=== PATIENT | female | born 1970 | race Two or more races ===

== ENCOUNTER → 2016-08-21 | Outpatient (CLI) | payer OTHER ==
[~2016-08-21] MED LIST: METHACHOLINE KIT (J7674) INH ONE
--- NOTE | 2016-08-21 10:02 | PFTRPT ---
BRONCOPROVOCATION TEST (METHACHOLINE CHALLENGE) DATE OF STUDY: 08/21/2016 ORDERED BY: Dr. Laura Tovar Study of excellent quality. Under protocol, methacholine was administered. Even after a maximal dose of 25 mg, or 188.875 CDU, no provocation dose every achieved. IMPRESSION: Negative methacholine challenge study. MTDD
--- NOTE | 2016-08-21 10:31 | METHCHAL ---
DATE OF STUDY: 08/21/2016 ORDERED BY: Dr. Laura Tovar Study of excellent quality. Under protocol, methacholine was administered. Even after a maximal dose of 25 mg, or 188.875 CDU, no provocation dose every achieved. IMPRESSION: Negative methacholine challenge study.
== END ==
LOC: M CARPUL 09:04
PROVIDERS: ATTEND Internal Medicine Pulmonary Disease
DX: R06.00 Dyspnea, unspecified (principal)

== ENCOUNTER → 2016-10-24 | Outpatient (CLI) | payer OTHER ==
[~2016-10-24] VITALS: Ht 165.1 cm; Wt 74.8 kg
[~2016-10-24] MED LIST changes: +ALLE180T33 PO; +BIOT2500 PO; +FLON1SPR; +IBUP-1114 PO; +LIDOCAINE 2% INJ 100 MG/5 ML SDV (FOR ANES.) As Ordered ONE; -METHACHOLINE KIT (J7674) INH ONE; +NS 1,000 ML IV ONE; +OMEP20CA3 PO; +PROA1AER INH; +PROPOFOL 200 MG/20 ML VIAL As Ordered ONE; +VITA1CAP7 PO; +VITA500T3 SL; +ZOFR20TA PO; +ZYRT10TA2 PO
--- NOTE | 2016-10-24 14:47 | ROOR ---
Patient Name: Cece Blanton Procedure Date: 10/24/2016 2:38 PM Date of : 1970 Age: 46 Room: [facility] Gender: Female Note Status: Finalized Procedure: Upper GI endoscopy Indications: Esophageal reflux, Chest pain (non cardiac) Providers: Davi RAMIREZ MD Referring MD: DELFIN LENZ MD Requesting Provider: Medicines: Monitored Anesthesia Care Complications: No immediate complications. Procedure: Pre-Anesthesia Assessment: - The heart rate, respiratory rate, oxygen saturations, blood pressure, adequacy of pulmonary ventilation, and response to care were monitored throughout the procedure. The Endoscope was introduced through the mouth, and advanced to the second part of duodenum. The upper GI endoscopy was accomplished without difficulty. The patient tolerated the procedure well. Findings: The esophagus was normal. The stomach was normal. The examined duodenum was normal. Impression: - Normal esophagus. - Normal stomach. - Normal examined duodenum. - No specimens collected. - Non-erosive esophageal reflux (NERD) disease present. Recommendation: - Use Prilosec (omeprazole) 20 mg PO BID indefinitely. Davi Ramirez MD Davi RAMIREZ MD 10/24/2016 2:47:13 PM This report has been signed electronically. Number of Addenda: 0 Note Initiated On: 10/24/2016 2:38 PM Estimated Blood Loss: Estimated blood loss: none.
[2016-10-24 15:19] VITALS: BP 119/58
== END | disposition home or self-care (01) ==
LOC: M OPP 12:37
PROVIDERS: ATTEND Internal Medicine Gastroenterology
DX: K21.9 Gastro-esophageal reflux disease without esophagitis (principal); I49.9 Cardiac arrhythmia, unspecified; L70.9 Acne, unspecified; Z91.040 Latex allergy status; Z79.899 Other long term (current) drug therapy

== ENCOUNTER 2017-01-01 05:04 | Emergency (ER) | payer OTHER ==
[~2017-01-01] VITALS: Ht 165.1 cm; Wt 72.7 kg
[~2017-01-01 05:04] MED LIST changes: -LIDOCAINE 2% INJ 100 MG/5 ML SDV (FOR ANES.) As Ordered ONE; -NS 1,000 ML IV ONE; -PROA1AER INH; +PROAAER10 INH; -PROPOFOL 200 MG/20 ML VIAL As Ordered ONE
[2017-01-01] MEDS ORDERED: ACETAMINOPHEN 325 MG TAB PO ONE (06:00)
[2017-01-01] MEDS ORDERED: IBUPROFEN 600 MG TAB PO ONE (06:00)
[2017-01-01 06:50] LABS: BASO % 0.5 % (0.0-1.0); EOS # 0.5 K/mm3 (0.0-0.50); EOS % 8.2 % (0.0-3.0); LARGE UNSTAINED CELL # 0.1 K/mm3 (0.0-0.4); LARGE UNSTAINED CELL % 1.8 % (0.0-4.0); LYMPH # 0.6 K/mm3 (1.5-4.5); MEAN CORPUSCULAR HEMOGLOBIN 30.2 pg (27.0-33.0); MEAN CORPUSCULAR HGB CONC 34.5 g/dl (32.0-36.5); MEAN CORPUSCULAR VOLUME 87.4 fl (80.0-96.0); MONO # 0.2 K/mm3 (0.0-0.8); MONO % 3.4 % (0.0-5.0); NEUTROPHILS # 4.5 K/mm3 (1.8-7.7); NEUTROPHILS % 78.1 % (36.0-66.0); PLATELET COUNT, AUTOMATED 233 k/mm3 (150-450); RED CELL DISTRIBUTION WIDTH 12.9 % (11.5-14.5); WHITE BLOOD COUNT 5.7 K/mm3 (4.0-10.0)
[2017-01-01] MEDS ORDERED: DOXY-278 PO (07:11)
[2017-01-01 07:12] LABS: ALBUMIN 3.7 GM/DL (3.2-5.2); ALBUMIN/GLOBULIN RATIO 0.93 (1.00-1.93); ALKALINE PHOSPHATASE 95 U/L (45-117); ALT/SGPT 31 U/L (12-78); ANION GAP 10 MEQ/L (8-16); AST/SGOT 33 U/L (15-37); BILIRUBIN,DIRECT 0.1 MG/DL (0.0-0.2); BILIRUBIN,TOTAL 0.5 MG/DL (0.2-1.0); BLOOD UREA NITROGEN 13 MG/DL (7-18); CALCIUM LEVEL 8.1 MG/DL (8.5-10.1); CARBON DIOXIDE LEVEL 23 MEQ/L (21-32); CHLORIDE LEVEL 106 MEQ/L (98-107); CREATININE FOR GFR 0.85 MG/DL (0.55-1.02); GLOMERULAR FILTRATION RATE > 60.0 (>58); GLUCOSE, FASTING 100 MG/DL (70-105); POTASSIUM SERUM 4.6 MEQ/L (3.5-5.1); SODIUM LEVEL 139 MEQ/L (136-145); TOTAL PROTEIN 7.7 GM/DL (6.4-8.2)
[2017-01-01] MEDS ORDERED: NS 1,000 ML IV ONE (07:45)
--- NOTE | 2017-01-01 08:40 | REP ---
PA and lateral chest: There are no comparisons. There is a 5 mm faintly visible nodular density peripherally in the left lung of uncertain significance in the absence of comparison studies to document stability. There are no infiltrates or effusions. Lung beltran otherwise clear. The cardiac size is normal. The zoë, mediastinum, and bony thorax are unremarkable. A cervical spine stabilization plate is partially visualized. Impression: No acute cardiopulmonary findings. Small nodular density in the left lung. Signed by Fred Jones MD 01/01/2017 08:31 A
[2017-01-01 10:56] VITALS: BP 122/68
--- NOTE | 2017-01-07 14:03 | ED PDOC ---
Post-Departure Follow-Up cuba zavaleta faxed formal report of cxr for fu Althea Tee MD Jan 07, 2017 14:03
== END 2017-01-01 10:59 | disposition home or self-care (01) ==
LOC: M ED 05:04
DX: R50.9 Fever, unspecified (principal)

== ENCOUNTER 2017-01-06 14:16 | Emergency (ER) | payer OTHER ==
[~2017-01-06] VITALS: Ht 165.1 cm; Wt 76.4 kg
[~2017-01-06 14:16] MED LIST changes: +DOXY-278 PO
[2017-01-06] MEDS ORDERED: KETOROLAC 30 MG/ML VIAL (J1885) IV ONE (15:30)
[2017-01-06] MEDS ORDERED: ONDANSETRON 4MG/2ML VIAL (J2405) IV ONE (15:30)
[2017-01-06] MEDS ORDERED: NS 1,000 ML IV ONE (15:30)
--- NOTE | 2017-01-06 15:58 | REP ---
CT study of the brain without contrast: History: Altered mental status. Findings: Digital paleology teacher radiographs of the chest demonstrate cervical spine fusion plating in the lower cervical spine. The bony calvarium is intact. Visualized paranasal sinuses are clear. No intraorbital abnormality is seen. On soft tissue window settings, there is a tiny dystrophic calcification in the inferior basal ganglia region on the left. There is no evidence of intracranial hemorrhage. No extra-axial fluid collection is seen. No mass, infarct, or midline shift is observed. Bond/white differentiation pattern is normal above and below the tentorium. Impression: No acute intracranial abnormality. Tiny dystrophic calcification left basal ganglia. Signed by Jalen Escamilla MD 01/06/2017 04:09 P
[2017-01-06 16:10] LABS: BASO # 0.1 K/mm3 (0.0-0.2); BASO % 1.3 % (0.0-1.0); EOS # 1.6 K/mm3 (0.0-0.50); EOS % 15.8 % (0.0-3.0); LARGE UNSTAINED CELL # 0.3 K/mm3 (0.0-0.4); LARGE UNSTAINED CELL % 2.8 % (0.0-4.0); LYMPH # 3.7 K/mm3 (1.5-4.5); LYMPH % 34.4 % (24.0-44.0); MEAN CORPUSCULAR HEMOGLOBIN 29.1 pg (27.0-33.0); MEAN CORPUSCULAR HGB CONC 32.4 g/dl (32.0-36.5); MEAN CORPUSCULAR VOLUME 89.9 fl (80.0-96.0); MONO # 0.5 K/mm3 (0.0-0.8); MONO % 5.1 % (0.0-5.0); NEUTROPHILS % 40.6 % (36.0-66.0); PLATELET COUNT, AUTOMATED 352 k/mm3 (150-450); RED CELL DISTRIBUTION WIDTH 12.9 % (11.5-14.5); WHITE BLOOD COUNT 9.9 K/mm3 (4.0-10.0)
--- NOTE | 2017-01-06 16:10 | REP ---
CT study of the cervical spine without contrast: History: Altered mental status. Technique: Helical scanning is acquired and overlapping 2 mm high resolution axial images were generated and reviewed at bone and soft tissue window settings. Coronal and sagittal multiplanar re-formations images are generated. CT findings: There is no evidence of cervical spine element fracture. No skull base fracture is seen. There is straightening of the normal cervical lordosis. The patient is status post surgical fusion at C5-6 and C6-7. C6-7 there is a fusion plate and intervertebral disc spacer noted in place. There are degenerative disc changes at C3-4 and C4-5. There is right-sided uncovertebral spurring and neural foraminal encroachment at the 6-7 level. Minimal left-sided uncovertebral spurring is seen at this level as well. The C7-T1 level shows no significant abnormality. Mild osteoarthritis is seen at C1-2. No extra vertebral abnormality is observed. Impression: Degenerative disc disease at C3-4 C4-5. Status post fusion C5-6, C6-7. Neural foraminal spurring bilaterally at C6-7. Otherwise negative CT study of the cervical spine without contrast. No fracture seen. Signed by Jalen Escamilla MD 01/06/2017 04:14 P
[2017-01-06 16:44] LABS: ALBUMIN 3.8 GM/DL (3.2-5.2); ALBUMIN/GLOBULIN RATIO 0.73 (1.00-1.93); ALKALINE PHOSPHATASE 171 U/L (45-117); ALT/SGPT 207 U/L (12-78); ANION GAP 10 MEQ/L (8-16); AST/SGOT 178 U/L (15-37); BILIRUBIN,DIRECT 0.1 MG/DL (0.0-0.2); BILIRUBIN,TOTAL 0.4 MG/DL (0.2-1.0); BLOOD UREA NITROGEN 15 MG/DL (7-18); CALCIUM LEVEL 8.8 MG/DL (8.5-10.1); CARBON DIOXIDE LEVEL 27 MEQ/L (21-32); CHLORIDE LEVEL 103 MEQ/L (98-107); CREATININE FOR GFR 0.81 MG/DL (0.55-1.02); GLOMERULAR FILTRATION RATE > 60.0 (>58); GLUCOSE, FASTING 86 MG/DL (70-105); POTASSIUM SERUM 3.6 MEQ/L (3.5-5.1); SODIUM LEVEL 140 MEQ/L (136-145)
[2017-01-06 17:27] LABS: CONTROL LINE MONO INT CTR LINE PRESENT
--- NOTE | 2017-01-06 18:13 | REP ---
RIGHT UPPER QUADRANT ULTRASOUND: Real-time sonographic evaluation of the right upper quadrant is performed. Patient has had a prior cholecystectomy. There is no intrahepatic or extrahepatic biliary dilatation, common bile duct measuring 4 mm in diameter. Liver and pancreas demonstrate homogenous echotexture with no gross mass, pancreas is not well seen due to overlying bowel gas. Right kidney demonstrates no hydronephrosis of nephrolithiasis with normal size at 9.6 cm in length. Lower pole is not well seen due to overlying bowel gas. No ascites is seen. IMPRESSION: Status-post cholecystectomy. No significant abnormality identified in the right upper quadrant. Signed by Fred Bond MD 01/07/2017 12:33 P
[2017-01-06 18:45] VITALS: BP 122/98
[2017-01-10 00:06] LABS: Lyme Disease IgG Ab 18 kDa Ban Absent (.); Lyme Disease IgG Ab 23 kDa Ban Absent (.); Lyme Disease IgG Ab 28 kDa Ban Absent (.); Lyme Disease IgG Ab 30 kDa Ban Absent (.); Lyme Disease IgG Ab 39 kDa Ban Present (.); Lyme Disease IgG Ab 41 kDa Ban Present (.); Lyme Disease IgG Ab 45 kDa Ban Absent (.); Lyme Disease IgG Ab 58 kDa Ban Absent (.); Lyme Disease IgG Ab 66 kDa Ban Absent (.); Lyme Disease IgG Ab 93 kDa Ban Absent (.); Lyme Disease IgG West Blot Int Negative (.); Lyme Disease IgG/IgM Antibodie <0.91 ISR (0.00-0.90); Lyme Disease IgM Ab 23 kDa Ban Absent (.); Lyme Disease IgM Ab 39 kDa Ban Absent (.); Lyme Disease IgM Ab 41 kDa Ban Absent (.); Lyme Disease IgM Ab Quantitati 1.28 index (0.00-0.79); Lyme Disease IgM West Blot Int Negative (.)
== END 2017-01-06 18:49 | disposition home or self-care (01) ==
LOC: M ED 14:16
DX: G44.201 Tension-type headache, unspecified, intractable (principal); R50.9 Fever, unspecified; R42 Dizziness and giddiness; R74.8 Abnormal levels of other serum enzymes; M50.30 Other cervical disc degeneration, unspecified cervical region; Z91.040 Latex allergy status; Z79.899 Other long term (current) drug therapy
CPT/HCPCS: 36415; 70450; 72125; 76705; 80048; 80076; 81001; 83605; 84443; 85025; 86308; 86617; 86705; 86709; 86803; 87340; 96361; 96374; 96375; 99284; J1885; J2405

== ENCOUNTER → 2017-01-08 | Outpatient (CLI) | payer OTHER ==
[~2017-01-08] MED LIST changes: +B-12500T2 PO; +CIPR-249 PO; +FLAG500T PO; +HYDR4CRE3 EXT; +IBUP1TAB7 PO; +METO10TA2 PO; +PANT40TA2 PO; +TRET0.0540 EXT; +[UNRECOGNIZED DRUG - CODE] PO
[2017-01-14 08:06] LABS: DENGUE FEVER IgG AB 6.88 ISR (<1.65); DENGUE FEVER IgM AB 1.12 ISR (<1.65)
== END ==
LOC: M LAB 10:29
PROVIDERS: ATTEND Nurse Practitioner Family
DX: R50.9 Fever, unspecified (principal); R51 Headache

== ENCOUNTER → 2017-01-10 | Outpatient (REF) | payer OTHER ==
[2017-01-10 12:00] LABS: BASO # 0.2 K/mm3 (0.0-0.2); BASO % 1.5 % (0.0-1.0); EOS # 2.6 K/mm3 (0.0-0.50); EOS % 26.1 % (0.0-3.0); LARGE UNSTAINED CELL # 0.2 K/mm3 (0.0-0.4); LYMPH # 2.8 K/mm3 (1.5-4.5); LYMPH % 26.2 % (24.0-44.0); MEAN CORPUSCULAR HEMOGLOBIN 29.6 pg (27.0-33.0); MEAN CORPUSCULAR HGB CONC 33.5 g/dl (32.0-36.5); MEAN CORPUSCULAR VOLUME 88.2 fl (80.0-96.0); MONO # 0.6 K/mm3 (0.0-0.8); MONO % 5.7 % (0.0-5.0); NEUTROPHILS # 3.8 K/mm3 (1.8-7.7); NEUTROPHILS % 38.4 % (36.0-66.0); PLATELET COUNT, AUTOMATED 418 k/mm3 (150-450); RED CELL DISTRIBUTION WIDTH 12.9 % (11.5-14.5); WHITE BLOOD COUNT 9.9 K/mm3 (4.0-10.0)
[2017-01-10 12:11] LABS: ALBUMIN 3.7 GM/DL (3.2-5.2); ALKALINE PHOSPHATASE 145 U/L (45-117); ALT/SGPT 101 U/L (12-78); ANION GAP 9 MEQ/L (8-16); AST/SGOT 34 U/L (15-37); BILIRUBIN,TOTAL 0.6 MG/DL (0.2-1.0); BLOOD UREA NITROGEN 14 MG/DL (7-18); CALCIUM LEVEL 8.6 MG/DL (8.5-10.1); CARBON DIOXIDE LEVEL 26 MEQ/L (21-32); CHLORIDE LEVEL 107 MEQ/L (98-107); CREATININE FOR GFR 0.74 MG/DL (0.55-1.02); GLOMERULAR FILTRATION RATE > 60.0 (>58); GLUCOSE, FASTING 83 MG/DL (70-105); POTASSIUM SERUM 4.5 MEQ/L (3.5-5.1); SODIUM LEVEL 142 MEQ/L (136-145); TOTAL PROTEIN 7.4 GM/DL (6.4-8.2)
[2017-01-10 12:31] LABS: ERYTHROCYTE SEDIMENTATION RATE 25 mm/hr (0-20)
[2017-01-18 00:06] LABS: ANTI PARVO VIRUS LEVEL IGG 1.3 index (0.0-0.8); ANTI PARVO VIRUS LEVEL IgM 0.2 index (0.0-0.8); BABESIOSIS LEVEL IGG <1:10 (Neg:<1:10); BABESIOSIS LEVEL IGM <1:10 (Neg:<1:10)
== END ==
LOC: M SFHCPLAZ 08:54
PROVIDERS: ATTEND Internal Medicine Infectious Disease
DX: R50.9 Fever, unspecified (principal)

== ENCOUNTER → 2017-01-23 | Outpatient (CLI) | payer OTHER ==
[2017-01-23 07:43] LABS: BASO # 0.1 K/mm3 (0.0-0.2); EOS # 2.8 K/mm3 (0.0-0.50); EOS % 33.4 % (0.0-3.0); LARGE UNSTAINED CELL # 0.3 K/mm3 (0.0-0.4); LARGE UNSTAINED CELL % 3.4 % (0.0-4.0); LYMPH # 2.6 K/mm3 (1.5-4.5); LYMPH % 30.3 % (24.0-44.0); MEAN CORPUSCULAR HEMOGLOBIN 29.8 pg (27.0-33.0); MEAN CORPUSCULAR HGB CONC 33.9 g/dl (32.0-36.5); MEAN CORPUSCULAR VOLUME 87.8 fl (80.0-96.0); MONO # 0.4 K/mm3 (0.0-0.8); MONO % 4.3 % (0.0-5.0); NEUTROPHILS # 2.3 K/mm3 (1.8-7.7); NEUTROPHILS % 27.6 % (36.0-66.0); PLATELET COUNT, AUTOMATED 349 k/mm3 (150-450); WHITE BLOOD COUNT 8.5 K/mm3 (4.0-10.0)
[2017-01-23 08:10] LABS: ALBUMIN 3.6 GM/DL (3.2-5.2); ALBUMIN/GLOBULIN RATIO 0.8 (1.00-1.93); BILIRUBIN,DIRECT 0.2 MG/DL (0.0-0.2); BILIRUBIN,TOTAL 0.6 MG/DL (0.2-1.0); TOTAL PROTEIN 8.1 GM/DL (6.4-8.2)
== END ==
LOC: M LAB 06:49
PROVIDERS: ATTEND Internal Medicine Infectious Disease
DX: R79.89 Other specified abnormal findings of blood chemistry (principal); D72.1 Eosinophilia; R50.9 Fever, unspecified

== ENCOUNTER → 2017-01-29 | Outpatient (CLI) | payer OTHER ==
[2017-01-29 18:17] LABS: MEAN CORPUSCULAR HEMOGLOBIN 29.9 pg (27.0-33.0); MEAN CORPUSCULAR HGB CONC 33.7 g/dl (32.0-36.5); MEAN CORPUSCULAR VOLUME 88.6 fl (80.0-96.0); WHITE BLOOD COUNT 7.8 K/mm3 (4.0-10.0)
[2017-01-29 20:11] LABS: BASOPHILS 4 % (0-4); EOSINOPHILS 11 % (0-5)
[2017-01-29 20:27] LABS: ALBUMIN 3.7 GM/DL (3.2-5.2); ALBUMIN/GLOBULIN RATIO 0.86 (1.00-1.93); ALKALINE PHOSPHATASE 113 U/L (45-117); ALT/SGPT 28 U/L (12-78); ANION GAP 12 MEQ/L (8-16); AST/SGOT 15 U/L (15-37); BILIRUBIN,TOTAL 0.5 MG/DL (0.2-1.0); BLOOD UREA NITROGEN 16 MG/DL (7-18); CARBON DIOXIDE LEVEL 23 MEQ/L (21-32); CHLORIDE LEVEL 106 MEQ/L (98-107); CREATININE FOR GFR 0.66 MG/DL (0.55-1.02); GLOMERULAR FILTRATION RATE > 60.0 (>58); GLUCOSE, FASTING 88 MG/DL (70-105); POTASSIUM SERUM 4.3 MEQ/L (3.5-5.1); SODIUM LEVEL 141 MEQ/L (136-145)
[2017-02-04 14:14] LABS: STRONGYLOIDES SERUM ANTIBODIES Negative (Negative)
[2017-02-05 14:23] LABS: TRICHINELLA ANTIBODY NEGATIVE
== END ==
LOC: M LAB 16:42
PROVIDERS: ATTEND Internal Medicine Infectious Disease
DX: D72.1 Eosinophilia (principal); R79.89 Other specified abnormal findings of blood chemistry

== ENCOUNTER → 2017-02-10 | Outpatient (REF) | payer OTHER ==
[2017-02-10 12:58] LABS: BASO % 0.6 % (0.0-1.0); EOS # 1.3 K/mm3 (0.0-0.50); EOS % 18.8 % (0.0-3.0); LARGE UNSTAINED CELL # 0.1 K/mm3 (0.0-0.4); LARGE UNSTAINED CELL % 1.6 % (0.0-4.0); LYMPH # 2.2 K/mm3 (1.5-4.5); LYMPH % 30.9 % (24.0-44.0); MEAN CORPUSCULAR HEMOGLOBIN 28.8 pg (27.0-33.0); MEAN CORPUSCULAR HGB CONC 32.2 g/dl (32.0-36.5); MEAN CORPUSCULAR VOLUME 89.4 fl (80.0-96.0); MONO # 0.3 K/mm3 (0.0-0.8); MONO % 4.3 % (0.0-5.0); NEUTROPHILS % 43.9 % (36.0-66.0); PLATELET COUNT, AUTOMATED 358 k/mm3 (150-450); RED CELL DISTRIBUTION WIDTH 12.9 % (11.5-14.5); WHITE BLOOD COUNT 6.8 K/mm3 (4.0-10.0)
[2017-02-10 13:10] LABS: BLOOD UREA NITROGEN 16 MG/DL (7-18); CARBON DIOXIDE LEVEL 28 MEQ/L (21-32); CHLORIDE LEVEL 107 MEQ/L (98-107); CREATININE FOR GFR 0.71 MG/DL (0.55-1.02); GLOMERULAR FILTRATION RATE > 60.0 (>58); GLUCOSE, FASTING 75 MG/DL (70-105); POTASSIUM SERUM 4.2 MEQ/L (3.5-5.1); SODIUM LEVEL 143 MEQ/L (136-145)
[2017-02-10 13:11] LABS: ALBUMIN 3.7 GM/DL (3.2-5.2); ALKALINE PHOSPHATASE 119 U/L (45-117); ALT/SGPT 24 U/L (12-78); ANION GAP 8 MEQ/L (8-16); AST/SGOT 17 U/L (15-37); BILIRUBIN,TOTAL 0.8 MG/DL (0.2-1.0); TOTAL PROTEIN 7.8 GM/DL (6.4-8.2)
[2017-02-10 13:26] LABS: ERYTHROCYTE SEDIMENTATION RATE 38 mm/hr (0-20)
[2017-02-12 00:06] LABS: Lyme Disease IgG/IgM Antibodie <0.91 ISR (0.00-0.90); Lyme Disease IgM Ab Quantitati <0.80 index (0.00-0.79)
== END ==
LOC: M SFHCPLAZ 08:47
PROVIDERS: ATTEND Internal Medicine Infectious Disease
DX: D72.1 Eosinophilia (principal); R51 Headache

== ENCOUNTER 2017-02-13 16:36 | Inpatient (IN) | payer OTHER ==
[~2017-02-13] VITALS: Ht 165.1 cm; Wt 76.4 kg
[~2017-02-13 16:36] MED LIST changes: -B-12500T2 PO; -CIPR-249 PO; -FLAG500T PO; -HYDR4CRE3 EXT; -IBUP1TAB7 PO; -METO10TA2 PO; -PANT40TA2 PO; -TRET0.0540 EXT; -[UNRECOGNIZED DRUG - CODE] PO
[2017-02-13] MEDS ORDERED: HYDROmorphone HCL 1 MG/ML SYRINGE (J1170) IV ONE (18:15)
[2017-02-13] MEDS ORDERED: ONDANSETRON 4MG/2ML VIAL (J2405) IV ONE ×2 (18:15→22:15)
--- NOTE | 2017-02-13 18:29 | ED PDOC ---
Post-Departure Follow-Up SPOKE WITH DR. PETERS PRIOR TO SEEING THIS PT. PT HAS BEEN SEEING DR. PETERS SINCE SHE RETURNED FROM [facility] WITH MULTIPLE SYMPTOMS. STATES SHE BEGAN WITH PERSISTENT HEADACHES, WHICH RESOLVED. THEN BEGAN HAVING BONE/JOINT PAIN WHICH HAS ALSO RESOLVED. DR. PETERS ADVISED SHE PERFORMED OVA/PARASITE TESTING THAT WAS NEGATIVE, ALONG WITH MULTIPLE TESTS IN BLOODWORK. SHE HAD POSITIVE SEROLOGY TESTING FOR PRIOR DENGUE FEVER, BUT NOT FOR ACUTE INFECTION. PT PRESENTS TO THE ER TODAY STATING SHE BEGAN WITH DIFFUSE ABDOMINAL PAIN TODAY THAT HAS BEEN WORSENING THROUGHOUT THE DAY. NO HX OF KIDNEY STONES. STATES ONLY C-SECTIONS AND CHOLECYSTECTOMY FOR PRIOR ABD SURGERIES. DR. PETERS SAW THIS PT FOR AN ACUTE VISIT 3 DAYS AGO IN HER OFFICE FOR THE RETURN OF PT'S HEADACHE. SHE ORDERED AN MRI THAT SHOWED SOME ABNORMALITIES. THE PT IS UNAWARE OF THIS AND DR. PETERS REQUESTED TO BE THE ONE TO TELL HER ABOUT HER MRI RESULTS. FELICITY MORENO PA-C Feb 13, 2017 18:29
[2017-02-13] MEDS ORDERED: GASTROGRAFIN SOLUTION 30ML PO ONE (18:30)
[2017-02-13 18:51] LABS: ALBUMIN 3.8 GM/DL (3.2-5.2); ALKALINE PHOSPHATASE 110 U/L (45-117); ALT/SGPT 25 U/L (12-78); AMYLASE 70 U/L (25-115); ANION GAP 6 MEQ/L (8-16); AST/SGOT 20 U/L (15-37); BILIRUBIN,DIRECT 0.2 MG/DL (0.0-0.2); BILIRUBIN,TOTAL 0.8 MG/DL (0.2-1.0); BLOOD UREA NITROGEN 16 MG/DL (7-18); CARBON DIOXIDE LEVEL 27 MEQ/L (21-32); CHLORIDE LEVEL 103 MEQ/L (98-107); CREATININE FOR GFR 0.81 MG/DL (0.55-1.02); GLOMERULAR FILTRATION RATE > 60.0 (>58); GLUCOSE, FASTING 110 MG/DL (70-105); POTASSIUM SERUM 4.1 MEQ/L (3.5-5.1); SODIUM LEVEL 136 MEQ/L (136-145)
[2017-02-13] MEDS ORDERED: GASTROGRAFIN SOLUTION 30ML (Q9963) PO ONE (19:00)
[2017-02-13] MEDS ORDERED: KETOROLAC 30 MG/ML VIAL (J1885) IV ONE (19:00)
[2017-02-13] MEDS ORDERED: MORPHINE 10 MG/ML 1ML VIAL IV ONE (19:00)
[2017-02-13 19:08] LABS: ADD MORPHOLOGY? NO; BASO % 0.1 % (0.0-1.0); EOS # 0.1 K/mm3 (0.0-0.50); EOS % 0.6 % (0.0-3.0); LARGE UNSTAINED CELL # 0.1 K/mm3 (0.0-0.4); LARGE UNSTAINED CELL % 0.7 % (0.0-4.0); LYMPH % 8.1 % (24.0-44.0); MEAN CORPUSCULAR HEMOGLOBIN 29.5 pg (27.0-33.0); MONO # 0.3 K/mm3 (0.0-0.8); MONO % 1.9 % (0.0-5.0); NEUTROPHILS # 11.3 K/mm3 (1.8-7.7); NEUTROPHILS % 88.6 % (36.0-66.0); PLATELET COUNT, AUTOMATED 364 k/mm3 (150-450); RED CELL DISTRIBUTION WIDTH 12.5 % (11.5-14.5)
[2017-02-13] MEDS ORDERED: METOCLOPRAMIDE INJ 10MG/2ML VIAL (J2765) IV ONE (19:15)
[2017-02-13 19:31] LABS: HCG, SERUM QUANTITATIVE < 1.0 MIU/ML
[2017-02-13] MEDS ORDERED: ISOVUE-370 76% 100ML VIAL (Q9967) As Ordered ONE (19:44)
[2017-02-13] MEDS ORDERED: NS 1,000 ML IV ONE (19:45)
--- NOTE | 2017-02-13 20:30 | REPUSA ---
CT of the abdomen and pelvis with contrast Clinical statement: Pain. Technique: Multiple axial CT images were obtained from the base of the lungs through the floor of the pelvis utilizing 5 mm axial slices after administration of oral and nonionic intravenous contrast. C oronal and sagittal reconstructions were also obtained. Comparison: 11/09/2015. Findings: Chest: The visualized lung bases are clear. There is a stable benign calcified granuloma in the left lung. Abdomen: The liver, spleen, pancreas, kidneys, and adrenal glands are unremarkable. The aorta is with in normal limits. There is no evidence of abdominal lymphadenopathy or ascites. Pelvis: There is diffuse severe bowel wall thickening involving the majority of the jejunum and ileum . Inflammatory stranding is seen around this region. There is a moderate amount of surrounding ascite s. There is no focal evidence of bowel obstruction. The colon appears unremarkable. The urinary bladd er is within normal limits. There is a simple right ovarian cyst measuring 2.0 x 2.0 cm. There is no evidence of pelvic lymphadenopathy. Bones: There are no suspicious osseous abnormalities seen. Moderate degenerative disc disease with sm all disc osteophyte complex is seen at L5/S1. Impression: 1. Diffuse small bowel wall thickening with surrounding inflammation and moderate amount of ascites i nvolving the majority of the jejunum and ileum. No focal site of obstruction is seen. Differential di agnosis includes enterocolitis versus and inflammatory bowel disease such as Crohn's disease. Follow- up is suggested as clinically indicated. 2. Moderate amount of pelvic ascites. 3. Simple right ovarian cyst. 4. Stable moderate degenerative disc disease at L5/S1.
[2017-02-13] MEDS ORDERED: methylPREDNISolone INJ 125 MG/2 ML VIAL (J2930) IV ONE (20:45)
[2017-02-13] MEDS ORDERED: CIPROFLOXACIN 400 MG in APPROPRIATE DILUENT 1 EA IV ONE (20:45)
[2017-02-13] MEDS ORDERED: MORPHINE 4 MG/ML 1ML SYRINGE IV ONE (22:00)
--- NOTE | 2017-02-13 22:08 | ER ---
DATE: 02/13/2017 Cece is a 46-year-old female well known to me from outpatient clinic visits. She has a return from [place] in November after she had spent a couple weeks there. She was seen in our emergency room on January 01 with fever and again on January 06 where she has severe headaches. The patient has fevers of 103 then developed severe bony pains, eosinophilia and abnormal liver function test. She was seen in consultation by myself on January 10, at that point her fever had resolved, but she was still having exhaustion, fatigue and bony pain with low back pain. The patient was noted to have significant eosinophilia with 30% eosinophil, stool and ova parasites were done were negative. Toxoplasma, Toxocara and Strongyloides serology were negative. 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 The patient asked for an acute visit and was seen in my office on February 10 complaining of severe neck pain and headache. 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 MRI showed multiple nonspecific T2 hyperintensity in the subcortical and periventricular white matter. I reviewed this MRI with Dr. Escamilla who felt this could be suggestive of findings ischemic changes, but her age is not the appropriate for age-related ischemic changes versus MS. Nothing to suggest infectious process, encephalitis or to explain her eosinophilia. She called today stating that she was having severe excruciating abdominal pain that started while walking on the trail. The pain has intensified drastically. She called my office at least a couple times, I asked her to come to the emergency room, she was nervous about the ER, she does not like [facility], but I promised I would see her there. The patient was seen. She is very uncomfortable. She cannot lay down to be examined. She has some nausea, but no vomiting, no diarrhea. She took two laxative this morning thinking it was gas that she had was causing the pain because she had pizza last night. Her bowel movement today were nonbloody, non mucoid, normal. She had two bowel movements. She has no fever or chills. No joint pain. Her headache is somewhat improved. PHYSICAL EXAMINATION: Temperature is 98.2, pulse 106, respirations 16, blood pressure 135/69, O2 sat 99% on room air. HEART: Normal S1-S2 with no murmurs, tachycardiac. LUNGS: Clear. No wheezes or rhonchi. ABDOMEN: Diffusely tender without rebound that is very uncomfortable. EXTREMITIES: No edema. No rashes. LABORATORY DATA: White count of 13, hemoglobin 13.1, hematocrit 38.6, platelets 364. 88% neutrophils, 8% lymphocytes, 2% monocytes. Sodium 136, potassium 4.1, chloride 103, bicarb 27, BUN 16, creatinine 0.8, glucose 110, lactic acid 1.55, calcium 9, bilirubin 0.8, AST 20, ALT 25, alkaline phosphatase 110, CRP 1.5, albumin 3.8, amylase 70, lipase 221 and HCG negative. Lyme serology done on 02/10 was negative, Strongyloides IgG antibody are negative. toxocara and toxoplasma antibody are negative. IMPRESSION: Severe abdominal pain in patient who has had a month of the illness which has been mostly suggestive of viral infection versus Dengue fever. The patient presents with an acute abdominal pathology. She had eosinophilia up until 02/10 , she had 18% eosinophils today in the ER possibly due to the leukocytosis and neutrophilia. There is no evidence of eosinophils on current smear. Currently the abdominal findings may not be related to previous illness. She is status post cholecystectomy and therefore that could not be the reason, she could have cholecystitis or bowel obstruction. PLAN Obtain stat CT abdomen and pelvis. The patient needs some morphine to help her get comfortable and possibly some anxiolytic. Consult surgery as appropriate. If the patient has a bowel movement, please obtain stool for O P GI panel. No further workup of eosinophilia will be done as an outpatient and MRI findings are suggestive of nonspecific T2 hyperintensity in the subcortical and periventricular white matter. I did discuss some of those findings with the patient and that this will be further worked up by neurology as an outpatient. Not sure if the patient will need admission at this point, but I have discussed the case with KATELYNN Tejeda regarding further workup. NAHUN
[2017-02-14] MEDS ORDERED: IBUP1TAB7 PO
[2017-02-14] MEDS ORDERED: TRET0.0540 EXT
[2017-02-14] MEDS ORDERED: HYDR4CRE3 EXT
[2017-02-14] MEDS ORDERED: B-12500T2 PO
[2017-02-14] MEDS ORDERED: [UNRECOGNIZED DRUG - CODE] PO (00:01)
--- NOTE | 2017-02-14 02:19 | HPE ---
DATE OF ADMISSION: 02/14/2017 46-year-old white female presents to the emergency room with diffuse abdominal pain. The pain began suddenly while she was on a walking trail earlier today. She has been nauseous, but no vomiting. She denies any diarrhea symptoms. She has an interesting recent past medical history for an unknown illness. She has been evaluated for possible dengue fever. She has been seeing Dr. Cummings. Her serologies were positive for IgG, but absent for IgM. This presentation was associated with a headache which was present most recently last week, but has now resolved itself. She also has had recent eosinophilia, but ironically eosinophils are not elevated this evening. She has had elevated liver function tests (LFTs), but they have returned to normal. She has been evaluated also with stool for ova and parasites (O and P) which has been negative. She has a mildly elevated white count in the emergency room this evening. White count is 13,000 with 88% neutrophils and negligible eosinophils. Eosinophils within the last month have been as high as 33% at one time at the end of December. Sedimentation rate has been moderately elevated in the mid 30s. CRP is mildly elevated. Her CT shows findings suggestive of enterocolitis with thickening involving the jejunum and ileum and ascites and associated moderate amount of pelvic ascites. Regarding her pain, she has had morphine and Dilaudid in the emergency room (ER). She seems to be comfortable at present, but still rates her pain fairly high on a 1-10 scale. Pain seems to be worse if supine. It also seems to be worse with anything which increases diaphragmatic pressure such as coughing, etc. She denies any fever. There is no associated rash. There are no joint complaints. ALLERGIES: LATEX. MEDICATIONS: She takes Zyrtec, Flonase, Yolanda, B12. She also takes Prilosec for gastroesophageal reflux disease (GERD). PAST MEDICAL HISTORY: She has had two neck/spine surgeries. She has had the recent illness as I discussed, which incidentally began after a vacation to the [place]. Cholecystectomy, ganglion cyst, breast augmentation, dental implant, vein surgery bilaterally with ablation, chronic sinuses and GERD. FAMILY HISTORY: Mother has hypertension. Brother has hypertension. She says her sister has hypotension. SOCIAL HISTORY: No alcohol or tobacco, travels a lot, last travel to the [place] in November. Became ill after that vacation with the headache, eosinophilia, elevated liver tests, etc., as discussed above. REVIEW OF SYSTEMS: General: She has had some chills today, but no fever. HEENT: She has had recent headache associated with her other illness. That has not been present in the last several days. Last week that was present for most of the week. She has had cranial imaging. She had some blurred vision back in November, but that has cleared up. Cardiopulmonary: Negative. Gastrointestinal (GI): She does have some epigastric pain with deep inspiration and with cough. She has diffuse abdominal pain. No bowel symptoms. She is nauseous. Genitourinary (): Negative. Musculoskeletal: Negative. Vascular: History of venous disease, but asymptomatic. Hematologic: Recent eosinophilia as discussed. Psychiatric: Negative. Dermatologic: No rashes. PHYSICAL EXAMINATION: 123/70, pulse is 110, respirations 16, temperature afebrile. General appearance: 46-year-old white female, appears healthy. She states otherwise she is in very good health. HEENT: Head was normocephalic, atraumatic. Eyes: Pupils equal, sclerae anicteric. Conjunctivae without injection. Oropharynx is unremarkable. Dentition is good. No oral mucosal lesions. Neck is supple. No adenopathy. No supraclavicular nodes. No jugular venous distention (JVD). Heart: Tachycardic at 110. Chest was clear. No adventitial lung sounds. Abdomen: Diffuse tenderness noted. More so on the central abdomen and epigastric area. No rebound or peritoneal signs. Bowel sounds active. Extremities: Warm peripherally. No clubbing, cyanosis or edema. Neurologic: Intact. Skin: No rashes. IMPRESSION/PLAN: Abdominal pain with CT evidence of enterocolitis with recent history of eosinophilia and a moderately elevated sedimentation rate as discussed above. She has had stool for ova and parasites (O and P) which is negative. She has had serologies through Dr. Cummings's office with positive dengue for IgG, but absent for IgM. With her evidence of enterocolitis and eosinophilia, inflammatory bowel disease or undiagnosed intestinal parasite would be first considerations. Ironically, the above described eosinophilia and elevated liver function tests (LFTs) are not present today as they were last month. In fact her blood work today is unremarkable except for an elevated C-reactive protein (CRP) and a mildly elevated white count. We have ordered serologies for inflammatory bowel disease. She has not had any bowel movements to speak of. When she does, we will check for fecal leukocytes. Will recheck for O and P. The plan for this evening is intravenous (IV) hydration and supportive care.
[2017-02-14] MEDS: ONDANSETRON 4MG/2ML VIAL (J2405) IV PRN ×4 (02:29→20:00)
[2017-02-14] MEDS: MORPHINE 4 MG/ML 1ML SYRINGE IV PRN ×6 (02:37→23:39)
[2017-02-14 03:00] VITALS: BP 120/69
[2017-02-14] MEDS: NS 1,000 ML IV SCH ×3 (04:09→23:38)
[2017-02-14] MEDS: METOCLOPRAMIDE INJ 10MG/2ML VIAL (J2765) IV SCH ×4 (05:23→23:39)
[2017-02-14 06:00] VITALS: BP 101/58
[2017-02-14] MEDS: NORCO, ANEXSIA 5/325MG TABLET (HYDROcodone/ACETAMINOPHEN) PO PRN ×4 (06:18→20:00)
[2017-02-14 06:48] LABS: ANION GAP 9 MEQ/L (8-16); BLOOD UREA NITROGEN 14 MG/DL (7-18); CALCIUM LEVEL 7.8 MG/DL (8.5-10.1); CARBON DIOXIDE LEVEL 25 MEQ/L (21-32); CHLORIDE LEVEL 104 MEQ/L (98-107); CREATININE FOR GFR 0.67 MG/DL (0.55-1.02); GLOMERULAR FILTRATION RATE > 60.0 (>58); GLUCOSE, FASTING 162 MG/DL (70-105); POTASSIUM SERUM 4.2 MEQ/L (3.5-5.1); SODIUM LEVEL 138 MEQ/L (136-145)
[2017-02-14 07:20] LABS: ADD MANUAL DIFFER YES; MEAN CORPUSCULAR HEMOGLOBIN 29.5 pg (27.0-33.0); MEAN CORPUSCULAR HGB CONC 33.8 g/dl (32.0-36.5); MEAN CORPUSCULAR VOLUME 87.4 fl (80.0-96.0); PLATELET COUNT, AUTOMATED 321 k/mm3 (150-450); RED CELL DISTRIBUTION WIDTH 12.7 % (11.5-14.5); WHITE BLOOD COUNT 14.3 K/mm3 (4.0-10.0)
--- NOTE | 2017-02-14 07:37 | REP ---
PA and lateral chest: Comparisons are the PA and lateral chest dated 01/01/[address] dated 06/11/2016. There is a 5 mm nodule peripherally in the left lung, similar to the comparison plain film study. On the comparison CT. This is a calcified granuloma. There are no acute infiltrates or effusions. No masses. Lung beltran otherwise clear. Cardiac size is normal. The zoë and mediastinum are unremarkable. There is a cervical spine stabilization plate , unchanged. Impression: There are no acute cardiopulmonary findings. Signed by Fred Jones MD 02/14/2017 07:28 A
[2017-02-14 07:40] LABS: BANDS 1 % (< 11)
[2017-02-14] MEDS: ENOXAPARIN 40 MG/0.4 ML SYRINGE (J1650) SC SCH (08:46)
[2017-02-14] MEDS: PANTOPRAZOLE 40MG INJ (PROTONIX) (C9113) IV SCH ×2 (12:47→20:00)
--- NOTE | 2017-02-14 13:00 | REP ---
Right upper quadrant sonography: History: Severe abdominal pain. Comparison sonography January 06, 2017. CT study February 13, 2017 showed evidence of enterocolitis pelvic ascites. Findings: Scanning through right upper quadrant of the abdomen demonstrates normal size liver. Portal triad echogenicity is noted to be somewhat prominent in the liver. This is equivocal. This finding can be seen in inflammatory bowel disease, pyogenic cholangitis, hepatic schistosomiasis as well as with pneumobilia. It is nonspecific. No hepatic mass lesion is observed. The gallbladder is surgically absent. No pancreatic abnormalities observed. There is no visible ascites or right renal abnormality. The right kidney measures 10.4 x 5.9 x 4.8 cm. Impression: Post cholecystectomy. Questionable finding of prominent echogenicity of the portal triads as discussed above. Otherwise negative. Signed by Jalen Escamilla MD 02/14/2017 03:20 P
[2017-02-14 13:08] LABS: REASON FOR REVIEW COMPREHENSIVE REVIEW
[2017-02-14 14:00] VITALS: BP 96/52
--- NOTE | 2017-02-14 16:23 | CR.PDOC ---
[facility] Consultation Consultation DATE OF CONSULTATION: Feb 13, 2017 at 16:36 REFERRING PROVIDER: Dr. Gerber ATTENDING PHYSICIAN: Dr. Bloom REASON FOR CONSULTATION/CHIEF COMPLAINT; severe abdominal pain HISTORY OF PRESENT ILLNESS: A 46-year-old white female presents to ED with severe abdominal pain on 02/13/17. The pain suddenly began while she was walking earlier that day today on a trail. Patient states that she noted her stomach begin to swell. Patient admitted to nausea, but denies vomiting. She denies diarrhea. A CT on 02/13/2017 reviewed small bowel wall thickening with surrounding inflammation and moderate of ascites involving the majority of the jejunum and ileum. No focal site of obstruction is seen. Differential diagnosis include enterocolitis versus inflammatory bowel disease such as Crohn's disease. Surgery was consulted because of the ongoing abdominal pain. She describes the pain as sharp, colicky abdominal pain. Laying on the bed with a heating pad across her stomach seems to help improve the pain ALLERGIES: Please see below. HOME MEDICATIONS: Please see below. PAST MEDICAL HISTORY: 1. GERD 2. Chronic sinusitis PAST SURGICAL HISTORY: Neck surgeries 2x Cholecystectomy Ganglion cyst Breast augmentation Dental implants Vein surgery with bilateral ablation FAMILY HISTORY: Mother has hypertension, sister has hypertension, brother has hypertension. Eyes any family history of inflammatory bowel disease and Crohns disease SOCIAL HISTORY: Lots of recent travels with the most recent one being in November, when she went to [facility] for a couple of weeks. No alcohol or tobacco. REVIEW OF SYSTEMS: CONSTITUTIONAL: Denies fever, denies headaches, denies chills CARDIOVASCULAR: Any chest pain, denies palpitation RESPIRATORY: Denies any difficulty breathing or shortness of breath GENITOURINARY: No issues with urination.. GASTROINTESTINAL: Patient is resting comfortably, but admits to severe abdominal pain. Patient states the pain radiates to slightly above the pubic bone. NEUROLOGICAL: No numbness, no weakness, no tingling HEMATOLOGIC/LYMPHATIC: Eyes any bleeding issues. PHYSICAL EXAMINATION: VITAL SIGNS: Please see below. GENERAL APPEARANCE: Alert, adult female, resting comfortably on bed, with heating pad on stomach. HEENT: Head is atraumatic.. RESPIRATORY: Lungs clear to auscultate anterior and wrist area bilaterally CARDIOVASCULAR: S1 and S2 present, no murmurs, no rubs comes no gallops. ABDOMEN: pain with palpation of entire lower abdomen, patient states the pain is worse below the umbilicus. Pressure on the lower abdomen causes pain to radiate to slightly above the pubic bone, mildly distended EXTREMITIES: No swelling noticed no deformities, LABORATORY DATA: Please see below. ASSESSMENT/PLAN: 1. Severe abdominal pain: Unlikely to be an acute abdomen. There are no signs of perforation, obstruction, infarction or rupture of an abdominal organ. She also does not appear rigid on examination. Also is there no elavation in lactate, and although patient might have a slightly elevated white count, this is not enough to indicate an acute abdomen. At this point no surgical intervention is required. Possible etiology for the abdominal pain could be enterocolitis of an unknown origin, whether viral or bacteria. Also an inflammatory process such as Crohn's or UC is highly possible. I recommend consult GI and following their recommendations and action plan. If GI work up is negative, perhaps consider vascular workup with possible mesenteric angiography, etc. If pain continues to worsen perhaps a trial of Bentyl might be able to improve the pain. An NG tube could also be placed, if patient continues to have severe abdominal pain. At this point such however , those measures are unnecessary. Consider repeat CT over the weekend if symptoms persist. Vital Signs/I&O Vital Signs Date Time Temp Pulse Resp B/P (MAP) Pulse Ox O2 Delivery O2 Flow Rate FiO2 02/14/17 15:15 18 02/14/17 14:45 Room Air 02/14/17 14:00 98.7 92 96/52 (67) 96 I&O- Last 24 Hours up to 6 AM 02/15/17 06:00 Intake Total 360 ml Output Total 1000 ml Balance -640 ml Laboratory Data Labs 24H Laboratory Tests 2 02/13/17 18:14: White Blood Count 13.0H, Red Blood Count 4.43, Hemoglobin 13.1, Hematocrit 38.6 , Mean Corpuscular Volume 87.0, Mean Corpuscular Hemoglobin 29.5, Mean Corpuscular Hemoglobin Concent 34.0, Red Cell Distribution Width 12.5, Platelet Count 364, Neutrophils (%) (Auto) 88.6H, Lymphocytes (%) (Auto) 8.1L, Monocytes (%) (Auto) 1.9, Eosinophils (%) (Auto) 0.6, Basophils (%) (Auto) 0.1, Neutrophils # (Auto) 11.3H, Lymphocytes # (Auto) 1.0L, Monocytes # (Auto) 0.3, Eosinophils # (Auto) 0.1, Basophils # (Auto) 0.0, Large Unclassified Cells % 0.7 , Large Unclassified Cells # 0.1, Anion Gap 6L, Glomerular Filtration Rate > 60.0, Lactic Acid Level 1.5, Calcium Level 9.0, Aspartate Amino Transf (AST/SGOT ) 20, Alanine Aminotransferase (ALT/SGPT) 25, Alkaline Phosphatase 110, Total Bilirubin 0.8, Direct Bilirubin 0.2, Total Creatine Kinase 83, Creatine Kinase MB 1.0, Creatine Kinase MB Relative Index 1.20, Troponin I < 0.02, C-Reactive Protein, Quantitative 1.50H, Total Protein 8.0, Albumin 3.8, Albumin/Globulin Ratio 0.90L, Amylase Level 70, Lipase 221, Human Chorionic Gonadotropin, Quant < 1.0 02/13/17 23:39: Urine Appearance CLEAR, Urine Color YELLOW, Urine pH 5.0, Urine Specific [place] >1.060H, Urine Protein NEGATIVE, Urine Glucose (UA) NEGATIVE, Urine Ketones NEGATIVE, Urine Urobilinogen 0.2, Urine Bilirubin NEGATIVE, Urine Leukocyte Esterase NEGATIVE, Urine Blood NEGATIVE, Urine Nitrite NEGATIVE, Urine WBC (Auto) 1, Urine RBC (Auto) 1, Urine Hyaline Casts (Auto) 0, Urine Bacteria (Auto) NEGATIVE, Urine Squamous Epithelial Cells 2, Urine Mucus (Auto) SMALL, Urine Sperm (Auto) 02/14/17 05:43: Anion Gap 9, Glomerular Filtration Rate > 60.0, Calcium Level 7.8L, Neutrophils 90H, Band Neutrophils 1, Lymphocytes (Manual) 6L, Monocytes (Manual) 3, Differential Slide Review Report, Differential Pathologist's Review COMPREHENSIVE REVIEW, Platelet Estimate NORMAL, Red Blood Cell Morphology NORMAL , Peripheral Blood Smear Path Consult PERIPHERAL SMEAR, Blood Urea Nitrogen 14, Creatinine 0.67, Sodium Level 138, Potassium Level 4.2, Chloride Level 104, Carbon Dioxide Level 25 02/14/17 07:31: Lactic Acid Level 1.3 CBC/BMP Laboratory Tests 02/13/17 18:14 Red Blood Count 4.43, Mean Corpuscular Volume 87.0, Mean Corpuscular Hemoglobin 29.5, Mean Corpuscular Hemoglobin Concent 34.0, Red Cell Distribution Width 12.5 , Neutrophils (%) (Auto) 88.6 H, Lymphocytes (%) (Auto) 8.1 L, Monocytes (%) ( Auto) 1.9, Eosinophils (%) (Auto) 0.6, Basophils (%) (Auto) 0.1, Neutrophils # ( Auto) 11.3 H, Lymphocytes # (Auto) 1.0 L, Monocytes # (Auto) 0.3, Eosinophils # (Auto) 0.1, Basophils # (Auto) 0.0 02/14/17 05:43 Red Blood Count 4.02, Mean Corpuscular Volume 87.4, Mean Corpuscular Hemoglobin 29.5, Mean Corpuscular Hemoglobin Concent 33.8, Red Cell Distribution Width 12.7 , Calcium Level 7.8 L Microbiology Microbiology 02/14/17 Blood Culture, Received Pending 02/13/17 Blood Culture, Received Pending Allergies Coded Allergies: Latex (Verified Allergy, Unknown, rash, itching , 10/22/16) Home Medications Scheduled (Flonase Allergy Relief) 50 Mcg/Act Spr, 100 MCG NA DAILY, (Reported) Biotin (Vitamin H) (Biotin) 2,500 Mcg Cap, 2,500 MCG PO DAILY, (Reported) Cetirizine HCl (Zyrtec Allergy) 10 Mg Tab, 10 MG PO DAILY, (Reported) TAKES AT NOON Cholecalciferol (Vitamin D3 Maximum Streng) 5,000 Unit Cap, 5,000 UNIT PO DAILY, (Reported) Cyanocobalamin (B-12) 500 Mcg Tab, 500 MCG PO DAILY, (Reported) Hydroquinone (Hydroquinone) 4 % Cre, 1 DOSE EXT BID, (Reported) USES ON FACE Omeprazole (Omeprazole) 20 Mg Cap, 20 MG PO BID, (Reported) Sodium Fluoride (Prevident 5000 Plus) 1.1 % Cre, 1 DOSE PO DAILY, (Reported) USES ON TEETH Tretinoin (Tretinoin) 0.05 % Cre, 1 DOSE EXT DAILY, (Reported) USES ON FACE Scheduled PRN Fexofenadine Hydrochloride (Yolanda Allergy) 180 Mg Tab, 180 MG PO QHS PRN for ALLERGIES, (Reported) Ibuprofen (Ibuprofen) 800 Mg Tab, 800 MG PO TID PRN for PAIN, (Reported) Ondansetron HCl (Zofran) 4 Mg Tab, 4 MG PO Q12H PRN for NAUSEA, (Reported) GME ATTESTATION GME ATTESTATION My preceptor for this patient encounter was physically present in the building during the encounter and was fully available. As needed, all aspects of the patient interview, examination, medical decision making process, and medical care plan development were reviewed and approved by the preceptor. Preceptor is aware and concurs with the plan as stated in the body of this note and will attest to such by his/her cosignature. SCAR DEVI DO Feb 14, 2017 16:23
--- NOTE | 2017-02-14 18:48 | IPNPDOC ---
Date Seen The patient was seen on 02/14/17. Progress Note SUBJECTIVE: Patient is a 46-year-old female with abdominal pain. She was examined at bedside this afternoon. She continues to report diffuse abdominal pain which she describes as "labor pains." The pain is more intense along the lower abdomen/pelvis and the left side of the abdomen. She feels as if she is bloated. Denies radiating pain, joint pain, back pain, musculoskeletal pain. She reports that her headache has improved. She is currently NPO secondary to nausea and vomiting. She did vomit this morning and reports that it was yellow in color without blood. She denies changes to her bowel or bladder habits and further denies blood in her stool or urine. Denies lumps/bumps in her neck, armpits, or groin. She denies having this ever happen before. She is near tears during my evaluation. OBJECTIVE PHYSICAL EXAMINATION: VITAL SIGNS: Please see below. GENERAL: Well nourished, well developed female, appears stated age, somewhat near tears, appears uncomfortable HEENT: Atraumatic, normocephalic, PERRL, EOMI, oral mucosa appears pink and moist, nasal septum appears midline, nares are patent CARDIOVASCULAR: Regular rate and rhythm, normal S1 and S2, no murmur, rub, click RESPIRATORY: Clear to auscultation bilaterally, adequate inspiratory and expiratory airway excursion, no wheeze, rhonchi, crackles ABDOMINAL: Possibly mildly distended, tender to palpation throughout without guarding or rebound, tympanic in all quadrants, bowel sounds throughout EXTREMITIES: Peripheral pulses appreciated bilaterally, equal, symmetrical, +2, without edema, lesions, excoriation, bruises NEUROLOGICAL: CN II-XII grossly intact PSYCHOLOGICAL: Somewhat near tears, uncomfortable, emotional LABORATORY DATA: Please see below. MICROBIOLOGY: Please see below. IMAGING: CT abdomen and pelvis with IV and oral contrast IMPRESSION: 1. Diffuse small bowel wall thickening with surrounding inflammation and moderate amount of ascites involving the majority of the jejunum and ileum. No focal site of obstruction is seen. Differential diagnosis includes enterocolitis versus and inflammatory bowel disease such as Crohn's disease. Follow-up is suggested as clinically indicated. 2. Moderate amount of pelvic ascites. 3. Simple right ovarian cyst. 4. Stable moderate degenerative disc disease at L5/S1. Chest x-ray, 2 view IMPRESSION: There are no acute cardiopulmonary findings. Liver ultrasound IMPRESSION: Post cholecystectomy. Questionable finding of prominent echogenicity of the portal triads as discussed above. Otherwise negative. DVT prophylaxis ordered?: Lovenox 40mg SC daily ASSESSMENT AND PLAN: This is a 46-year-old female with abdominal pain. PROBLEMS: 1. Eosinophilia: Appears to be resolved; however, likely being masked by left shift. Absolute eosinophil count on 01/23/17 was 2,839 making this a moderate eosinophilia. The latest absolute eosinophil count from 02/13/17 was 78; however , there has been left shift which is possibly masking the underlying eosinophilia. An extensive work-up has included Lyme, Babesia, Chikungunya, Dengue (for which IgG Ab was positive representing a past infection), hepatitis , Leptospirosis, Parvovirus (for which IgG Ab was positive indicating a past infection), Strongyloides, Toxocara, and Trichinella. All (besides the one's listed) were negative. S. cerevisiae, p-ANCA, c-ANCA, BRIAN are pending. Etiology unclear at this time. Obtaining O&P, stool for polys, and a GI panel when patient is able to produce a bowel movement. 2. Abdominal pain: Somewhat controlled with current pain medication regimen. Current medications include Metoclopramide, Zofran, Morphine, Lacey, Tylenol, and Protonix. Abdomen and pelvis CT revealed diffuse small bowel wall thickening and inflammation. Liver ultrasound revealed "questionable finding of prominent echogenicity of the portal triads." Prior cholecystectomy. Possible underlying infectious etiology. No bowel movement at time of evaluation despite 2x senokot. Verbally discussed case with general surgery as patient had a colonoscopy with the general surgeon on-call. Recommendations from general surgery include no surgical intervention at this time, could consider vascular work-up if GI work-up in negative, could consider initiating Bentyl if abdominal pain continues or worsens, or possibly placing an NG tube. Could consider repeat CT if symptoms persist. Also verbally discussed case with manager cardiac. Patient on a clear liquid diet. 3. Leukocytosis: Increased from yesterday. Patient did receive SoluMedrol in the ED, but is not currently on any steroids. Would not currently recommend steroid therapy at this time. No fever. 4. Anemia: Obtained peripheral smear which revealed "Mild normocytic anemia. Leukocytosis with left shift in the granulocytic series (primarily band forms); no blast forms identified. Essentially normal platelet morphology." DISPOSITION: Continue evaluation for etiology for eosinophilia. Continue with abdominal pain control. Would hold off initiating steroids at this time. Appreciate the assistance of general surgery and gastroenterology. VS, I&O, 24H, Fishbone Vital Signs/I&O Vital Signs Date Time Temp Pulse Resp B/P (MAP) Pulse Ox O2 Delivery O2 Flow Rate FiO2 02/14/17 17:31 16 Room Air 02/14/17 14:00 98.7 92 96/52 (67) 96 I&O- Last 24 Hours up to 6 AM 02/15/17 06:00 Intake Total 360 ml Output Total 1200 ml Balance -840 ml Laboratory Data 24H LABS Laboratory Tests 2 02/13/17 18:14: White Blood Count 13.0H, Red Blood Count 4.43, Hemoglobin 13.1, Hematocrit 38.6 , Mean Corpuscular Volume 87.0, Mean Corpuscular Hemoglobin 29.5, Mean Corpuscular Hemoglobin Concent 34.0, Red Cell Distribution Width 12.5, Platelet Count 364, Neutrophils (%) (Auto) 88.6H, Lymphocytes (%) (Auto) 8.1L, Monocytes (%) (Auto) 1.9, Eosinophils (%) (Auto) 0.6, Basophils (%) (Auto) 0.1, Neutrophils # (Auto) 11.3H, Lymphocytes # (Auto) 1.0L, Monocytes # (Auto) 0.3, Eosinophils # (Auto) 0.1, Basophils # (Auto) 0.0, Large Unclassified Cells % 0.7 , Large Unclassified Cells # 0.1, Anion Gap 6L, Glomerular Filtration Rate > 60.0, Lactic Acid Level 1.5, Calcium Level 9.0, Aspartate Amino Transf (AST/SGOT ) 20, Alanine Aminotransferase (ALT/SGPT) 25, Alkaline Phosphatase 110, Total Bilirubin 0.8, Direct Bilirubin 0.2, Total Creatine Kinase 83, Creatine Kinase MB 1.0, Creatine Kinase MB Relative Index 1.20, Troponin I < 0.02, C-Reactive Protein, Quantitative 1.50H, Total Protein 8.0, Albumin 3.8, Albumin/Globulin Ratio 0.90L, Amylase Level 70, Lipase 221, Human Chorionic Gonadotropin, Quant < 1.0 02/13/17 23:39: Urine Appearance CLEAR, Urine Color YELLOW, Urine pH 5.0, Urine Specific [place] >1.060H, Urine Protein NEGATIVE, Urine Glucose (UA) NEGATIVE, Urine Ketones NEGATIVE, Urine Urobilinogen 0.2, Urine Bilirubin NEGATIVE, Urine Leukocyte Esterase NEGATIVE, Urine Blood NEGATIVE, Urine Nitrite NEGATIVE, Urine WBC (Auto) 1, Urine RBC (Auto) 1, Urine Hyaline Casts (Auto) 0, Urine Bacteria (Auto) NEGATIVE, Urine Squamous Epithelial Cells 2, Urine Mucus (Auto) SMALL, Urine Sperm (Auto) 02/14/17 05:43: Anion Gap 9, Glomerular Filtration Rate > 60.0, Calcium Level 7.8L, Neutrophils 90H, Band Neutrophils 1, Lymphocytes (Manual) 6L, Monocytes (Manual) 3, Differential Slide Review Report, Differential Pathologist's Review COMPREHENSIVE REVIEW, Platelet Estimate NORMAL, Red Blood Cell Morphology NORMAL , Peripheral Blood Smear Path Consult PERIPHERAL SMEAR, Blood Urea Nitrogen 14, Creatinine 0.67, Sodium Level 138, Potassium Level 4.2, Chloride Level 104, Carbon Dioxide Level 25 02/14/17 07:31: Lactic Acid Level 1.3 CBC/BMP Laboratory Tests 02/13/17 18:14 Red Blood Count 4.43, Mean Corpuscular Volume 87.0, Mean Corpuscular Hemoglobin 29.5, Mean Corpuscular Hemoglobin Concent 34.0, Red Cell Distribution Width 12.5 , Neutrophils (%) (Auto) 88.6 H, Lymphocytes (%) (Auto) 8.1 L, Monocytes (%) ( Auto) 1.9, Eosinophils (%) (Auto) 0.6, Basophils (%) (Auto) 0.1, Neutrophils # ( Auto) 11.3 H, Lymphocytes # (Auto) 1.0 L, Monocytes # (Auto) 0.3, Eosinophils # (Auto) 0.1, Basophils # (Auto) 0.0 02/14/17 05:43 Red Blood Count 4.02, Mean Corpuscular Volume 87.4, Mean Corpuscular Hemoglobin 29.5, Mean Corpuscular Hemoglobin Concent 33.8, Red Cell Distribution Width 12.7 , Calcium Level 7.8 L Microbiology Microbiology 02/14/17 Blood Culture, Received Pending 02/13/17 Blood Culture, Received Pending ROQUE CORBIN-I Feb 14, 2017 18:48
[2017-02-14 21:15] LABS: EOS % 0.1 % (0.0-3.0); LARGE UNSTAINED CELL # 0.1 K/mm3 (0.0-0.4); LARGE UNSTAINED CELL % 0.6 % (0.0-4.0); LYMPH % 7.3 % (24.0-44.0); MEAN CORPUSCULAR HEMOGLOBIN 29.3 pg (27.0-33.0); MEAN CORPUSCULAR HGB CONC 33.3 g/dl (32.0-36.5); MEAN CORPUSCULAR VOLUME 87.9 fl (80.0-96.0); MONO # 0.1 K/mm3 (0.0-0.8); NEUTROPHILS # 11.8 K/mm3 (1.8-7.7); PLATELET COUNT, AUTOMATED 333 k/mm3 (150-450); RED CELL DISTRIBUTION WIDTH 12.8 % (11.5-14.5)
[2017-02-14 21:24] LABS: ANION GAP 5 MEQ/L (8-16); AST/SGOT 9 U/L (15-37); BLOOD UREA NITROGEN 12 MG/DL (7-18); CALCIUM LEVEL 7.4 MG/DL (8.5-10.1); CARBON DIOXIDE LEVEL 27 MEQ/L (21-32); CHLORIDE LEVEL 105 MEQ/L (98-107); CREATININE FOR GFR 0.67 MG/DL (0.55-1.02); GLOMERULAR FILTRATION RATE > 60.0 (>58); GLUCOSE, FASTING 126 MG/DL (70-105); POTASSIUM SERUM 3.7 MEQ/L (3.5-5.1); SODIUM LEVEL 137 MEQ/L (136-145)
[2017-02-14 21:25] LABS: ALBUMIN/GLOBULIN RATIO 0.71 (1.00-1.93); ALKALINE PHOSPHATASE 70 U/L (45-117); ALT/SGPT 15 U/L (12-78); BILIRUBIN,TOTAL 1.1 MG/DL (0.2-1.0); TOTAL PROTEIN 6.5 GM/DL (6.4-8.2)
[2017-02-14 21:41] LABS: ALBUMIN 2.7 GM/DL (3.2-5.2)
[2017-02-14 22:00] VITALS: BP 128/64
[2017-02-15] MEDS ORDERED: metroNIDAZOLE 500 MG in APPROPRIATE DILUENT 1 EA IV SCH ×2
[2017-02-15] MEDS: NORCO, ANEXSIA 5/325MG TABLET (HYDROcodone/ACETAMINOPHEN) PO PRN ×7 (01:51→22:34)
[2017-02-15] MEDS: MORPHINE 4 MG/ML 1ML SYRINGE IV PRN ×4 (03:37→21:03)
[2017-02-15] MEDS: METOCLOPRAMIDE INJ 10MG/2ML VIAL (J2765) IV SCH ×3 (05:02→18:49)
[2017-02-15 05:57] LABS: EOS % 0.1 % (0.0-3.0); LARGE UNSTAINED CELL # 0.1 K/mm3 (0.0-0.4); LARGE UNSTAINED CELL % 0.5 % (0.0-4.0); LYMPH % 9.1 % (24.0-44.0); MEAN CORPUSCULAR HEMOGLOBIN 29.1 pg (27.0-33.0); MEAN CORPUSCULAR HGB CONC 33.4 g/dl (32.0-36.5); MEAN CORPUSCULAR VOLUME 87.3 fl (80.0-96.0); MONO # 0.3 K/mm3 (0.0-0.8); MONO % 2.4 % (0.0-5.0); NEUTROPHILS % 87.9 % (36.0-66.0); PLATELET COUNT, AUTOMATED 350 k/mm3 (150-450); RED CELL DISTRIBUTION WIDTH 12.8 % (11.5-14.5); WHITE BLOOD COUNT 11.4 K/mm3 (4.0-10.0)
[2017-02-15 06:00] VITALS: BP 107/59
[2017-02-15 06:19] LABS: ANION GAP 5 MEQ/L (8-16); BLOOD UREA NITROGEN 11 MG/DL (7-18); CALCIUM LEVEL 7.6 MG/DL (8.5-10.1); CARBON DIOXIDE LEVEL 26 MEQ/L (21-32); CHLORIDE LEVEL 104 MEQ/L (98-107); CREATININE FOR GFR 0.71 MG/DL (0.55-1.02); GLOMERULAR FILTRATION RATE > 60.0 (>58); GLUCOSE, FASTING 125 MG/DL (70-105); POTASSIUM SERUM 3.7 MEQ/L (3.5-5.1); SODIUM LEVEL 135 MEQ/L (136-145)
[2017-02-15 06:52] LABS: ALBUMIN 2.6 GM/DL (3.2-5.2); ALBUMIN/GLOBULIN RATIO 0.65 (1.00-1.93); ALKALINE PHOSPHATASE 80 U/L (45-117); ALT/SGPT 15 U/L (12-78); AST/SGOT 10 U/L (15-37); BILIRUBIN,DIRECT 0.2 MG/DL (0.0-0.2); TOTAL PROTEIN 6.6 GM/DL (6.4-8.2)
[2017-02-15] MEDS: ONDANSETRON 4MG/2ML VIAL (J2405) IV PRN ×3 (07:04→22:34)
[2017-02-15] MEDS: PANTOPRAZOLE 40MG INJ (PROTONIX) (C9113) IV SCH ×2 (09:11→21:02)
[2017-02-15] MEDS: ENOXAPARIN 40 MG/0.4 ML SYRINGE (J1650) SC SCH (09:12)
--- NOTE | 2017-02-15 10:31 | IPNPDOC ---
Date Seen The patient was seen on 02/15/17. Progress Note SUBJECTIVE: : A 46-year-old white female presents to ED with severe abdominal pain on 02/13/17. The pain suddenly began while she was walking earlier that day today on a trail. Patient states that she noted her stomach begin to swell. Patient admitted to nausea, but denies vomiting. She denies diarrhea. A CT on reviewed small bowel wall thickening with surrounding inflammation and moderate of ascites involving the majority of the jejunum and ileum. No focal site of obstruction is seen. Differential diagnosis include enterocolitis versus inflammatory bowel disease such as Crohn's disease. Surgery was consulted because of the ongoing abdominal pain. This morning states that her pain has moved into the mid abdomen.Bilateral sides are no longer causing her pain. She is able to tolerate PO liquids,. OBJECTIVE PHYSICAL EXAMINATION: VITAL SIGNS: Please see below. GENERAL: Awake, Laying comfortably in bed HEENT: Head is atraumatic CARDIOVASCULAR:~ S1 and S2 presents, no murmurs, rubs or gallops RESPIRATORY: CTAB anterior and posterior ABDOMINAL: Painful to palpate midline below the umbilicus. No tenderness noted on bilateral flanks, abdomen in slight distended, its improve from yesterday EXTREMITIES: Moving, no deformities LABORATORY DATA: Please see below. MICROBIOLOGY: Please see below. IMAGING: Abdominal CT: 1. Diffuse small bowel wall thickening with surrounding inflammation and moderate amount of ascites involving the majority of the jejunum and ileum. No focal site of obstruction is seen. Differential diagnosis includes enterocolitis versus and inflammatory bowel disease such as Crohn's disease. Follow-up is suggested as clinically indicated. 2. Moderate amount of pelvic ascites. 3. Simple right ovarian cyst. 4. Stable moderate degenerative disc disease at L5/S1. Chest X-Ray: There are no acute cardiopulmonary findings Liver Ultrasound: Post cholecystectomy. Questionable finding of prominent echogenicity of the portal triads as discussed above. Otherwise negative ASSESSMENT AND PLAN: A 46-year-old female with abdominal pain. Acute abdomen has been ruled out. Pain is most likely due to enterocolitis of an unknown origin. The inflammation throughout the small bowel is perhaps causing a small ileus. I agree with patients current plan for clinical liquid diet. Patient might be more tolerate low residue diet tomorrow. Patients lab work is improving. At this point I expect her white count normalized by tomorrow. This is sign of patient clinical improvement. Continue with pain control and follow GIs recommendations. [facility]/I&O Vital Signs Date Time Temp Pulse Resp B/P (MAP) Pulse Ox O2 Delivery O2 Flow Rate FiO2 02/15/17 09:41 17 Room Air 02/15/17 06:00 98.8 108 107/59 (75) 96 I&O- Last 24 Hours up to 6 AM 02/16/17 06:00 Intake Total 120 ml Balance 120 ml Laboratory Data 24H LABS Laboratory Tests 2 02/14/17 20:44: White Blood Count 13.0H, Red Blood Count 4.06, Hemoglobin 11.9L, Hematocrit 35.7L, Mean Corpuscular Volume 87.9, Mean Corpuscular Hemoglobin 29.3, Mean Corpuscular Hemoglobin Concent 33.3, Red Cell Distribution Width 12.8, Platelet Count 333, Neutrophils (%) (Auto) 91.0H, Lymphocytes (%) (Auto) 7.3L, Monocytes (%) (Auto) 1.0, Eosinophils (%) (Auto) 0.1, Basophils (%) (Auto) 0.0, Neutrophils # (Auto) 11.8H, Lymphocytes # (Auto) 1.0L, Monocytes # (Auto) 0.1, Eosinophils # (Auto) 0.0, Basophils # (Auto) 0.0, Large Unclassified Cells % 0.6 , Large Unclassified Cells # 0.1, Anion Gap 5L, Glomerular Filtration Rate > 60.0, Lactic Acid Level 0.8, Blood Urea Nitrogen 12, Creatinine 0.67, Sodium Level 137, Potassium Level 3.7, Chloride Level 105, Carbon Dioxide Level 27, Calcium Level 7.4L, Aspartate Amino Transf (AST/SGOT) 9L, Alanine Aminotransferase (ALT/SGPT) 15, Alkaline Phosphatase 70, Total Bilirubin 1.1H, Total Protein 6.5, Albumin 2.7#L, Albumin/Globulin Ratio 0.71L 02/15/17 05:11: Urine Appearance HAZY, Urine Color J CARLOS, Urine pH 5.0, Urine Specific [place] 1.033, Urine Protein 2+H, Urine Glucose (UA) NEGATIVE, Urine Ketones 1+H, Urine Urobilinogen 0.2, Urine Bilirubin NEGATIVE, Urine Leukocyte Esterase NEGATIVE, Urine Blood NEGATIVE, Urine Nitrite NEGATIVE, Urine WBC (Auto) 4H, Urine RBC ( Auto) 8H, Urine Hyaline Casts (Auto) 0, Urine Bacteria (Auto) NEGATIVE, Urine Squamous Epithelial Cells 8, Urine Mucus (Auto) SMALL, Urine Sperm (Auto) 02/15/17 05:27: White Blood Count 11.4H, Red Blood Count 4.06, Hemoglobin 11.8L, Hematocrit 35.4L, Mean Corpuscular Volume 87.3, Mean Corpuscular Hemoglobin 29.1, Mean Corpuscular Hemoglobin Concent 33.4, Red Cell Distribution Width 12.8, Platelet Count 350, Neutrophils (%) (Auto) 87.9H, Lymphocytes (%) (Auto) 9.1L, Monocytes (%) (Auto) 2.4, Eosinophils (%) (Auto) 0.1, Basophils (%) (Auto) 0.0, Neutrophils # (Auto) 10.0H, Lymphocytes # (Auto) 1.0L, Monocytes # (Auto) 0.3, Eosinophils # (Auto) 0.0, Basophils # (Auto) 0.0, Large Unclassified Cells % 0.5 , Large Unclassified Cells # 0.1, Anion Gap 5L, Glomerular Filtration Rate > 60.0, Blood Urea Nitrogen 11, Creatinine 0.71, Sodium Level 135L, Potassium Level 3.7, Chloride Level 104, Carbon Dioxide Level 26, Calcium Level 7.6L, Aspartate Amino Transf (AST/SGOT) 10L, Alanine Aminotransferase (ALT/SGPT) 15, Alkaline Phosphatase 80, Total Bilirubin 1.0, Total Protein 6.6, Albumin 2.6L, Albumin/Globulin Ratio 0.65L, Direct Bilirubin 0.2, Lipase 601H CBC/BMP Laboratory Tests 02/14/17 20:44 Red Blood Count 4.06, Mean Corpuscular Volume 87.9, Mean Corpuscular Hemoglobin 29.3, Mean Corpuscular Hemoglobin Concent 33.3, Red Cell Distribution Width 12.8 , Neutrophils (%) (Auto) 91.0 H, Lymphocytes (%) (Auto) 7.3 L, Monocytes (%) ( Auto) 1.0, Eosinophils (%) (Auto) 0.1, Basophils (%) (Auto) 0.0, Neutrophils # ( Auto) 11.8 H, Lymphocytes # (Auto) 1.0 L, Monocytes # (Auto) 0.1, Eosinophils # (Auto) 0.0, Basophils # (Auto) 0.0, Calcium Level 7.4 L, Aspartate Amino Transf (AST/SGOT) 9 L, Alanine Aminotransferase (ALT/SGPT) 15, Alkaline Phosphatase 70 , Total Bilirubin 1.1 H, Total Protein 6.5, Albumin 2.7 #L 02/15/17 05:27 Red Blood Count 4.06, Mean Corpuscular Volume 87.3, Mean Corpuscular Hemoglobin 29.1, Mean Corpuscular Hemoglobin Concent 33.4, Red Cell Distribution Width 12.8 , Neutrophils (%) (Auto) 87.9 H, Lymphocytes (%) (Auto) 9.1 L, Monocytes (%) ( Auto) 2.4, Eosinophils (%) (Auto) 0.1, Basophils (%) (Auto) 0.0, Neutrophils # ( Auto) 10.0 H, Lymphocytes # (Auto) 1.0 L, Monocytes # (Auto) 0.3, Eosinophils # (Auto) 0.0, Basophils # (Auto) 0.0, Calcium Level 7.6 L Microbiology Microbiology 02/14/17 Blood Culture - Preliminary, Resulted No growth after 24 hours . All specim... 02/13/17 Blood Culture - Preliminary, Resulted No growth after 24 hours . All specim... GME ATTESTATION GME ATTESTATION My preceptor for this patient encounter was physically present in the building during the encounter and was fully available. As needed, all aspects of the patient interview, examination, medical decision making process, and medical care plan development were reviewed and approved by the preceptor. Preceptor is aware and concurs with the plan as stated in the body of this note and will attest to such by his/her cosignature. SCAR DEVI DO Feb 15, 2017 10:31
[2017-02-15] MEDS: NS 1,000 ML IV SCH ×2 (13:08→21:04)
[2017-02-15 14:00] VITALS: BP 117/66
[2017-02-15] MEDS ORDERED: MOM 30ML SUSPENSION UDC PO PRN (14:15)
--- NOTE | 2017-02-15 15:03 | IPNPDOC ---
Date Seen The patient was seen on 02/15/17. Progress Note SUBJECTIVE: Patient is a 46-year-old female with abdominal pain. She was examined at bedside this morning. The pain is more intense along the lower abdomen/pelvis and feels bloated. Denies radiating pain, joint pain, back pain , musculoskeletal pain. She is currently on clear diets. She denies changes to her bowel or bladder habits. Patient is frustrated during the exam. PHYSICAL EXAMINATION: VITAL SIGNS: Please see below. GENERAL: Well nourished, well developed female, appears stated age, appears uncomfortable HEENT: Atraumatic, normocephalic, , oral mucosa appears pink and moist, CARDIOVASCULAR: Regular rate and rhythm, normal S1 and S2, no murmur, gallops or rubs. RESPIRATORY: Clear to auscultation bilaterally anteriorly. ABDOMINAL: Possibly mildly distended, tender to palpation in lower abdomen without guarding or rebound, tympanic bowel sounds in all quadrants, EXTREMITIES: no peripheral edema, or lesions appreciated. LABORATORY DATA: Please see below. MICROBIOLOGY: Please see below. IMAGIN02/14/17 Liver U/S Impression: Post cholecystectomy. Questionable finding of prominent echogenicity of the portal triads as discussed above. Otherwise negative. ASSESSMENT AND PLAN: This is a 46-year-old female with abdominal pain. PROBLEMS: 1. Abdominal pain: Abdomen and pelvis CT revealed diffuse small bowel wall thickening and inflammation. Liver ultrasound revealed "questionable finding of prominent echogenicity of the portal triads." Prior cholecystectomy. Possible underlying infectious etiology. 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 Patient on a clear liquid diet. Surgery states no surgical intervention at this time, could consider vascular work-up if GI work-up in negative. Patient lipase this morning was elevated from 221 to 601. We are currently waiting for GI recommendation. Will continue with intravenous (IV) hydration and supportive care. 2. Eosinophilia: Appears to be resolved; work-up has included Lyme, Babesia, Chikungunya, hepatitis, Leptospirosis, Strongyloides, Toxocara, and Trichinella , which were all negative. Parvovirus and Dengue were positive for past infection S. cerevisiae, p-ANCA, c-ANCA, BRIAN are pending. Etiology unclear at this time. Obtaining O&P, stool for polys, and a GI panel when patient is able to produce a bowel movement. ID continue recommendations is appreciated. 3. Leukocytosis: improving. Patient did receive SoluMedrol in the ED, but is not currently on any steroids. Per ID, not recommended for patient to be on steroid at this time. 4. Nausea: Zofran on board. Patient had more relief with Reglan. Reordered it for patient. VS, I&O, 24H, Fishbone Vital Signs/I&O Vital Signs Date Time Temp Pulse Resp B/P (MAP) Pulse Ox O2 Delivery O2 Flow Rate FiO2 02/15/17 14:00 98.8 110 16 117/66 (83) 96 Room Air I&O- Last 24 Hours up to 6 AM 02/16/17 06:00 Intake Total 120 ml Output Total 150 ml Balance -30 ml Laboratory Data 24H LABS Laboratory Tests 2 02/14/17 20:44: White Blood Count 13.0H, Red Blood Count 4.06, Hemoglobin 11.9L, Hematocrit 35.7L, Mean Corpuscular Volume 87.9, Mean Corpuscular Hemoglobin 29.3, Mean Corpuscular Hemoglobin Concent 33.3, Red Cell Distribution Width 12.8, Platelet Count 333, Neutrophils (%) (Auto) 91.0H, Lymphocytes (%) (Auto) 7.3L, Monocytes (%) (Auto) 1.0, Eosinophils (%) (Auto) 0.1, Basophils (%) (Auto) 0.0, Neutrophils # (Auto) 11.8H, Lymphocytes # (Auto) 1.0L, Monocytes # (Auto) 0.1, Eosinophils # (Auto) 0.0, Basophils # (Auto) 0.0, Large Unclassified Cells % 0.6 , Large Unclassified Cells # 0.1, Anion Gap 5L, Glomerular Filtration Rate > 60.0, Lactic Acid Level 0.8, Blood Urea Nitrogen 12, Creatinine 0.67, Sodium Level 137, Potassium Level 3.7, Chloride Level 105, Carbon Dioxide Level 27, Calcium Level 7.4L, Aspartate Amino Transf (AST/SGOT) 9L, Alanine Aminotransferase (ALT/SGPT) 15, Alkaline Phosphatase 70, Total Bilirubin 1.1H, Total Protein 6.5, Albumin 2.7#L, Albumin/Globulin Ratio 0.71L 02/15/17 05:11: Urine Appearance HAZY, Urine Color J CARLOS, Urine pH 5.0, Urine Specific [place] 1.033, Urine Protein 2+H, Urine Glucose (UA) NEGATIVE, Urine Ketones 1+H, Urine Urobilinogen 0.2, Urine Bilirubin NEGATIVE, Urine Leukocyte Esterase NEGATIVE, Urine Blood NEGATIVE, Urine Nitrite NEGATIVE, Urine WBC (Auto) 4H, Urine RBC ( Auto) 8H, Urine Hyaline Casts (Auto) 0, Urine Bacteria (Auto) NEGATIVE, Urine Squamous Epithelial Cells 8, Urine Mucus (Auto) SMALL, Urine Sperm (Auto) 02/15/17 05:27: White Blood Count 11.4H, Red Blood Count 4.06, Hemoglobin 11.8L, Hematocrit 35.4L, Mean Corpuscular Volume 87.3, Mean Corpuscular Hemoglobin 29.1, Mean Corpuscular Hemoglobin Concent 33.4, Red Cell Distribution Width 12.8, Platelet Count 350, Neutrophils (%) (Auto) 87.9H, Lymphocytes (%) (Auto) 9.1L, Monocytes (%) (Auto) 2.4, Eosinophils (%) (Auto) 0.1, Basophils (%) (Auto) 0.0, Neutrophils # (Auto) 10.0H, Lymphocytes # (Auto) 1.0L, Monocytes # (Auto) 0.3, Eosinophils # (Auto) 0.0, Basophils # (Auto) 0.0, Large Unclassified Cells % 0.5 , Large Unclassified Cells # 0.1, Anion Gap 5L, Glomerular Filtration Rate > 60.0, Blood Urea Nitrogen 11, Creatinine 0.71, Sodium Level 135L, Potassium Level 3.7, Chloride Level 104, Carbon Dioxide Level 26, Calcium Level 7.6L, Aspartate Amino Transf (AST/SGOT) 10L, Alanine Aminotransferase (ALT/SGPT) 15, Alkaline Phosphatase 80, Total Bilirubin 1.0, Total Protein 6.6, Albumin 2.6L, Albumin/Globulin Ratio 0.65L, Direct Bilirubin 0.2, Lipase 601H CBC/BMP Laboratory Tests 02/14/17 20:44 Red Blood Count 4.06, Mean Corpuscular Volume 87.9, Mean Corpuscular Hemoglobin 29.3, Mean Corpuscular Hemoglobin Concent 33.3, Red Cell Distribution Width 12.8 , Neutrophils (%) (Auto) 91.0 H, Lymphocytes (%) (Auto) 7.3 L, Monocytes (%) ( Auto) 1.0, Eosinophils (%) (Auto) 0.1, Basophils (%) (Auto) 0.0, Neutrophils # ( Auto) 11.8 H, Lymphocytes # (Auto) 1.0 L, Monocytes # (Auto) 0.1, Eosinophils # (Auto) 0.0, Basophils # (Auto) 0.0, Calcium Level 7.4 L, Aspartate Amino Transf (AST/SGOT) 9 L, Alanine Aminotransferase (ALT/SGPT) 15, Alkaline Phosphatase 70 , Total Bilirubin 1.1 H, Total Protein 6.5, Albumin 2.7 #L 02/15/17 05:27 Red Blood Count 4.06, Mean Corpuscular Volume 87.3, Mean Corpuscular Hemoglobin 29.1, Mean Corpuscular Hemoglobin Concent 33.4, Red Cell Distribution Width 12.8 , Neutrophils (%) (Auto) 87.9 H, Lymphocytes (%) (Auto) 9.1 L, Monocytes (%) ( Auto) 2.4, Eosinophils (%) (Auto) 0.1, Basophils (%) (Auto) 0.0, Neutrophils # ( Auto) 10.0 H, Lymphocytes # (Auto) 1.0 L, Monocytes # (Auto) 0.3, Eosinophils # (Auto) 0.0, Basophils # (Auto) 0.0, Calcium Level 7.6 L Microbiology Microbiology 02/14/17 Blood Culture - Preliminary, Resulted No growth after 24 hours . All specim... 02/13/17 Blood Culture - Preliminary, Resulted No growth after 24 hours . All specim... ALIE BULLARD DO Feb 15, 2017 15:03
[2017-02-15] MEDS: MESALAMINE 250 MG CR CAP PO SCH ×2 (16:46→21:02)
[2017-02-15 22:00] VITALS: BP 115/60
[2017-02-16] MEDS: MORPHINE 4 MG/ML 1ML SYRINGE IV PRN ×5 (00:24→22:14)
[2017-02-16] MEDS: METOCLOPRAMIDE INJ 10MG/2ML VIAL (J2765) IV SCH ×4 (01:00→22:14)
[2017-02-16] MEDS: NORCO, ANEXSIA 5/325MG TABLET (HYDROcodone/ACETAMINOPHEN) PO PRN ×3 (01:55→11:40)
[2017-02-16] MEDS: ONDANSETRON 4MG/2ML VIAL (J2405) IV PRN ×2 (05:36→17:00)
[2017-02-16 06:00] VITALS: BP 119/67
[2017-02-16 06:29] LABS: BASO % 0.1 % (0.0-1.0); EOS # 0.1 K/mm3 (0.0-0.50); EOS % 0.5 % (0.0-3.0); LARGE UNSTAINED CELL # 0.1 K/mm3 (0.0-0.4); LARGE UNSTAINED CELL % 0.5 % (0.0-4.0); LYMPH # 1.2 K/mm3 (1.5-4.5); LYMPH % 10.1 % (24.0-44.0); MEAN CORPUSCULAR HEMOGLOBIN 29.2 pg (27.0-33.0); MEAN CORPUSCULAR HGB CONC 33.3 g/dl (32.0-36.5); MEAN CORPUSCULAR VOLUME 87.6 fl (80.0-96.0); MONO # 0.3 K/mm3 (0.0-0.8); MONO % 2.6 % (0.0-5.0); NEUTROPHILS # 10.5 K/mm3 (1.8-7.7); NEUTROPHILS % 86.2 % (36.0-66.0); PLATELET COUNT, AUTOMATED 335 k/mm3 (150-450); RED CELL DISTRIBUTION WIDTH 12.8 % (11.5-14.5); WHITE BLOOD COUNT 12.2 K/mm3 (4.0-10.0)
[2017-02-16 06:32] LABS: ANION GAP 9 MEQ/L (8-16); BLOOD UREA NITROGEN 6 MG/DL (7-18); CALCIUM LEVEL 6.7 MG/DL (8.5-10.1); CARBON DIOXIDE LEVEL 25 MEQ/L (21-32); CHLORIDE LEVEL 104 MEQ/L (98-107); CHOLESTEROL LEVEL 116 MG/DL (<200); CREATININE FOR GFR 0.54 MG/DL (0.55-1.02); GLOMERULAR FILTRATION RATE > 60.0 (>58); GLUCOSE, FASTING 93 MG/DL (70-105); POTASSIUM SERUM 3.4 MEQ/L (3.5-5.1); SODIUM LEVEL 138 MEQ/L (136-145); TRIGLYCERIDES LEVEL 100 MG/DL (<150)
[2017-02-16 07:28] LABS: MAGNESIUM LEVEL 2.1 MG/DL (1.8-2.4)
[2017-02-16] MEDS ORDERED: POTASSIUM CHLORIDE 10 MEQ SR TABLET PO ONE (07:30)
[2017-02-16] MEDS: ENOXAPARIN 40 MG/0.4 ML SYRINGE (J1650) SC SCH (08:14)
[2017-02-16] MEDS: PANTOPRAZOLE 40MG INJ (PROTONIX) (C9113) IV SCH ×2 (08:14→22:13)
[2017-02-16] MEDS: MESALAMINE 250 MG CR CAP PO SCH ×4 (08:16→22:18)
[2017-02-16] MEDS ORDERED: MIRALAX *UNIT DOSE* 17GM PACKET PO PRN (08:30)
[2017-02-16] MEDS: SENOKOT S TAB PO SCH ×2 (08:36→22:19)
[2017-02-16] MEDS ORDERED: GASTROGRAFIN SOLUTION 30ML PO ONE (08:45)
[2017-02-16] MEDS ORDERED: INFLUENZA QUADRIVALENT PF VACCINE 0.5ML SYRINGE (90686) IM ONE (09:00)
[2017-02-16] MEDS ORDERED: GASTROGRAFIN SOLUTION 30ML (Q9963) PO ONE (09:15)
[2017-02-16] MEDS: CIPROFLOXACIN 400 MG in APPROPRIATE DILUENT 1 EA IV SCH (12:22)
--- NOTE | 2017-02-16 13:23 | REP ---
CT ABDOMEN WITHOUT CONTRAST: CT abdomen is performed without IV contrast. Oral contrast was administered. Comparison made with prior CT of 02/13/2017. There are small bilateral pleural effusions with adjacent bibasilar atelectasis/infiltrate. The liver is grossly unremarkable. The patient has had a prior cholecystectomy. The spleen, adrenals and pancreas are grossly unremarkable. There is no abdominal aortic aneurysm. No definite adenopathy is seen. There is moderate abdominal and pelvis ascites which is new. There is also moderate scattered free intraperitoneal air. Previously noted thickened small bowel loops persist. There is moderate dilatation of the proximal small bowel. Oral contrast does travel into the right side of the colon and the findings are most consistent with a partial small bowel obstruction. IMPRESSION: Moderate scattered free intraperitoneal air. Moderate abdominal and pelvic ascites. Persistent thickened small bowel loops. Findings were conveyed to Dr. Bloom 02/16/2017 at approximately 11:45 a.m. Signed by Fred Bond MD 02/16/2017 07:17 P
[2017-02-16 14:00] VITALS: BP 119/65
[2017-02-16] MEDS: metroNIDAZOLE 500 MG in APPROPRIATE DILUENT 1 EA IV SCH ×2 (14:02→21:48)
--- NOTE | 2017-02-16 14:46 | IPN ---
DATE: 02/16/2017 SUBJECTIVE: The patient tells me that she is feeling a little bit better today. She tells me that she is having less pain and tenderness in her belly. She denies fever, chills, chest pain, shortness of breath. She denies nausea or vomiting. She has not had a bowel movement. OBJECTIVE: VITAL SIGNS: Temperature 97.9, pulse 84, respiratory rate 18, blood pressure 119/67, O2 saturation 97% on room air. GENERAL: She is a middle-aged female sitting in her recliner. She does not appear to be in any acute distress. She appears more comfortable than on previous days. HEENT: Cranial nerves II through XII grossly intact. She has moist mucous membranes. No elevation of jugular venous pressure. CARDIOVASCULAR: S1, S2. RESPIRATORY: Clear. ABDOMEN: She has mild rigidness in the upper quadrants, but otherwise diminished bowel sounds. Abdomen is soft and nontender. EXTREMITIES: No clubbing, cyanosis or edema. LABORATORY STUDIES: WBC 12.2, hemoglobin 11.1, platelet count 335. Chemistry panel: Sodium 138, potassium 3.4, chloride 104, bicarbonate 25, BUN 6, creatinine 0.5. Blood cultures thus far are negative. Peripheral smear reveals mild normocytic anemia, leukocytosis with left shift. No blasts. Normal platelet morphology. She had a CT abdomen and pelvis scan on the , which revealed diffuse small bowel wall thickening and surrounding inflammation, a moderate amount of ascites involving the majority of the jejunum and ileum. Differential diagnosis includes enterocolitis versus inflammatory bowel disease such as Crohn's. A moderate amount of pelvic ascites. Simple right ovarian. She had a chest x-ray around the same time that revealed no acute cardiopulmonary findings. She had a liver ultrasound which revealed post cholecystectomy, questionable finding of prominent echogenicity of the portal triads. She did have a CT scan of the abdomen and pelvis completed this morning which Dr. Bond did call and inform me. The patient had a moderate amount of free air in abdomen. ASSESSMENT AND PLAN: This is a 46-year-old female with abdominal pain. 1. Abdominal pain. At the present time she has been seen and evaluated by Dr. Cummings, Dr. Donovan, and Dr. Gerber. I did receive a phone call from Dr. Bond only moments ago that the patient has a moderate amount of free air under her belly. Her pain is improved today. She is afebrile. She is not tachycardic. She is hemodynamically stable. I did discuss the case with Dr. Gerber who feels that she likely has had a perforation possibly in the small bowel but presently the CT scan is unclear to say where her small perforation is. There was no leakage of oral contrast. For the time being, we will make the patient nothing by mouth (npo) and start her on Cipro-Flagyl and micafungin empiric coverage. Will redrawn cultures including fungal cultures. Dr. Donovan had previously started the patient on mesalamine 500 mg four times a day to help with inflammation, which has been titrated up to 500 earlier in the day. The patient is also hypokalemic and that was replated earlier in the day. Given that the patient is actually somewhat clinically improved at this time, up and ambulating, it is likely that her perforation occurred earlier. We are only seeing the evidence of it at this time. 2. Eosinophilia. Not visualized at this time. The patient did receive steroids and did have a left shift. She had an extensive workup including testing for Lyme, Babesia, Chikungunya, hepatitis, Leptospirosis, Strongyloides, Toxocara, parvovirus, Dengue. Inflammatory bowel panel is pending as well as ANCAs. Stool ova and parasites have not been obtained during this stay as the patient has been constipated. She has been started on bowel regimen by Dr. Donovan. 3. DISPOSITION: Will continue to follow her course very closely.
[2017-02-16] MEDS: MICAFUNGIN SODIUM 100 MG in D5W MINI-BAG PLUS 100 ML IV SCH (15:30)
--- NOTE | 2017-02-16 17:50 | REPUSA ---
CLINICAL HISTORY: Pain. COMMENTS: Real time sonography with duplex doppler was performed with attention to the major deep venous struct ures. Evaluation reveals the common femoral, deep femoral, superficial femoral, popliteal veins to be compl etely compressible without intraluminal thrombus. There is normal spontaneous phasic flow and augment ation in all deep veins. The greater saphenous/common femoral vein junction is patent. IMPRESSION: No evidence of DVT. Thank you for your kind referral of this patient.
--- NOTE | 2017-02-16 18:00 | REPUSA ---
CLINICAL HISTORY: Pain. COMMENTS: Real time sonography with duplex doppler was performed with attention to the major deep venous struct ures. Evaluation reveals the common femoral, superficial femoral, popliteal and posterior tibial veins to b e completely compressible without intraluminal thrombus. There is normal spontaneous phasic flow and augmentation in all deep veins. The greater saphenous/common femoral vein junction is patent. IMPRESSION: No evidence of DVT. Thank you for your kind referral of this patient.
[2017-02-16 22:00] VITALS: BP 141/69
[2017-02-17] MEDS: METOCLOPRAMIDE INJ 10MG/2ML VIAL (J2765) IV SCH ×4 (00:28→18:41)
[2017-02-17] MEDS: metroNIDAZOLE 500 MG in APPROPRIATE DILUENT 1 EA IV SCH ×3 (05:32→21:52)
[2017-02-17] MEDS: ONDANSETRON 4MG/2ML VIAL (J2405) IV PRN ×2 (05:39→21:52)
[2017-02-17 06:00] VITALS: BP 121/65
[2017-02-17 06:31] LABS: EOS # 0.1 K/mm3 (0.0-0.50); EOS % 1.2 % (0.0-3.0); LARGE UNSTAINED CELL # 0.1 K/mm3 (0.0-0.4); LARGE UNSTAINED CELL % 0.8 % (0.0-4.0); LYMPH # 1.2 K/mm3 (1.5-4.5); LYMPH % 11.2 % (24.0-44.0); MEAN CORPUSCULAR HEMOGLOBIN 29.3 pg (27.0-33.0); MEAN CORPUSCULAR HGB CONC 33.5 g/dl (32.0-36.5); MEAN CORPUSCULAR VOLUME 87.5 fl (80.0-96.0); MONO # 0.4 K/mm3 (0.0-0.8); MONO % 3.7 % (0.0-5.0); NEUTROPHILS # 9.2 K/mm3 (1.8-7.7); PLATELET COUNT, AUTOMATED 353 k/mm3 (150-450); WHITE BLOOD COUNT 11.1 K/mm3 (4.0-10.0)
[2017-02-17 06:32] VITALS: BP 121/65
[2017-02-17] MEDS: ACETAMINOPHEN TAB 650MG DOSE (2X325MG) PO PRN (06:32)
[2017-02-17 06:38] LABS: ANION GAP 10 MEQ/L (8-16); BLOOD UREA NITROGEN 7 MG/DL (7-18); CALCIUM LEVEL 7.4 MG/DL (8.5-10.1); CARBON DIOXIDE LEVEL 24 MEQ/L (21-32); CHLORIDE LEVEL 103 MEQ/L (98-107); CREATININE FOR GFR 0.59 MG/DL (0.55-1.02); GLOMERULAR FILTRATION RATE > 60.0 (>58); GLUCOSE, FASTING 88 MG/DL (70-105); POTASSIUM SERUM 3.5 MEQ/L (3.5-5.1); SODIUM LEVEL 137 MEQ/L (136-145)
[2017-02-17] MEDS ORDERED: E-Z-PAQUE 96% w/w SUSP 176GM BTL As Ordered ONE (07:43)
[2017-02-17] MEDS: SENOKOT S TAB PO SCH ×2 (09:00→21:00)
[2017-02-17] MEDS: NORCO, ANEXSIA 5/325MG TABLET (HYDROcodone/ACETAMINOPHEN) PO PRN ×2 (09:14→18:42)
[2017-02-17] MEDS: ENOXAPARIN 40 MG/0.4 ML SYRINGE (J1650) SC SCH (09:15)
[2017-02-17] MEDS: PANTOPRAZOLE 40MG INJ (PROTONIX) (C9113) IV SCH ×2 (09:15→21:52)
[2017-02-17] MEDS: MESALAMINE 250 MG CR CAP PO SCH ×4 (09:15→21:51)
--- NOTE | 2017-02-17 10:32 | IPNPDOC ---
Date Seen The patient was seen on 02/17/17. Progress Note SUBJECTIVE: Patient is a 46-year-old female admitted for abdominal pain. Surgery was consulted on 02/15/2017, because CT revealed small bowel wall thickening with surrounding inflammation and moderate ascites involving the majority of the jejunum and ileum. She has since had a second CT on 02/16/17. The second CT showed moderate scattered free intraperitoneal air. With moderate abdominal and pelvic ascites. It also showed persistent thickened small bowel loops. This morning patient states that her pain is doing better. She admits to being able to have bowel movement about 3 times. She is also voiding without any issues. She admits that her stomach is less distended. Patient had a fever overnight of 100.8 Tylenol was administered. This morning during examination she was afebrile OBJECTIVE PHYSICAL EXAMINATION: VITAL SIGNS: Please see below. GENERAL: Alert, comfortable sitting in a chair. CARDIOVASCULAR: S1 and S2 are present, no murmurs, no rubs, no gallops RESPIRATORY: Lungs are clear to auscultate anteriorly and bilaterally. ABDOMINAL: Minimal distention. Slight pain with palpation on abdomen, pain has improved from last examination EXTREMITIES: No deformities, no swelling, no bruising LABORATORY DATA: Please see below. MICROBIOLOGY: Please see below. IMAGING: Abdominal CT on 02/13/2017: Diffuse small bowel wall thickening with surrounding inflammation and moderate amount of ascites the majority of the jejunum and ileum. No focal site of obstruction is seen. Differential diagnosis includes colitis versus inflammatory bowel disease such as Crohn's disease. Abdominal CT on 02/16/2017:Moderate scattered free intraperitoneal air. Moderate abdominal and pelvic ascites. Persistent thickened small bowel loops ASSESSMENT AND PLAN: 46-year-old female admitted for severe abdominal pain. Repeat CT revealed moderate scattered free intraperitoneal air. This could be from an ulcer perforation or bowel perforation. However given patient's clinical improvement it is unlikely. Patient is still is having abdominal pain, although much improved from original presentation. However given patient's persistent pain, I recommend nothing by mouth with the exception of ice and water, until pain is improved and then patient diet can be advanced. Be on the lookout for the possibility of abscess developing later. At which point antibiotics and CT guided drainage will be applicable. VS, I&O, 24H, Fishbone Vital Signs/I&O Vital Signs Date Time Temp Pulse Resp B/P (MAP) Pulse Ox O2 Delivery O2 Flow Rate FiO2 9/25/17 09:44 18 Room Air 02/17/17 07:35 98.8 135 02/17/17 06:32 121/65 (83) 02/17/17 06:00 94 Laboratory Data 24H LABS Laboratory Tests 2 02/17/17 06:11: White Blood Count 11.1H, Red Blood Count 3.73L, Hemoglobin 10.9L, Hematocrit 32.7L, Mean Corpuscular Volume 87.5, Mean Corpuscular Hemoglobin 29.3, Mean Corpuscular Hemoglobin Concent 33.5, Red Cell Distribution Width 13.0, Platelet Count 353, Neutrophils (%) (Auto) 83.0H, Lymphocytes (%) (Auto) 11.2L, Monocytes (%) (Auto) 3.7, Eosinophils (%) (Auto) 1.2, Basophils (%) (Auto) 0.0, Neutrophils # (Auto) 9.2H, Lymphocytes # (Auto) 1.2L, Monocytes # (Auto) 0.4, Eosinophils # (Auto) 0.1, Basophils # (Auto) 0.0, Large Unclassified Cells % 0.8 , Large Unclassified Cells # 0.1, Anion Gap 10, Glomerular Filtration Rate > 60.0, Blood Urea Nitrogen 7, Creatinine 0.59, Sodium Level 137, Potassium Level 3.5, Chloride Level 103, Carbon Dioxide Level 24, Calcium Level 7.4L CBC/BMP Laboratory Tests 02/17/17 06:11 Red Blood Count 3.73 L, Mean Corpuscular Volume 87.5, Mean Corpuscular Hemoglobin 29.3, Mean Corpuscular Hemoglobin Concent 33.5, Red Cell Distribution Width 13.0, Neutrophils (%) (Auto) 83.0 H, Lymphocytes (%) (Auto) 11.2 L, Monocytes (%) (Auto) 3.7, Eosinophils (%) (Auto) 1.2, Basophils (%) ( Auto) 0.0, Neutrophils # (Auto) 9.2 H, Lymphocytes # (Auto) 1.2 L, Monocytes # ( Auto) 0.4, Eosinophils # (Auto) 0.1, Basophils # (Auto) 0.0, Calcium Level 7.4 L Microbiology Microbiology 02/16/17 Blood Culture, Received Pending 02/16/17 Blood Culture, Received Pending 02/14/17 Blood Culture - Preliminary, Resulted No Growth after 72 hours. All specime... 02/13/17 Blood Culture - Preliminary, Resulted No Growth after 72 hours. All specime... 02/17/17 Gastrointestinal Tract Panel (PCR) - Final, Complete Clostridium Difficile A/B GME ATTESTATION GME ATTESTATION My preceptor for this patient encounter was physically present in the building during the encounter and was fully available. As needed, all aspects of the patient interview, examination, medical decision making process, and medical care plan development were reviewed and approved by the preceptor. Preceptor is aware and concurs with the plan as stated in the body of this note and will attest to such by his/her cosignature. SCAR DEVI DO Feb 17, 2017 10:32
[2017-02-17] MEDS: CIPROFLOXACIN 400 MG in APPROPRIATE DILUENT 1 EA IV SCH ×3 (12:19)
--- NOTE | 2017-02-17 12:26 | IPNPDOC ---
Subjective Date Seen The patient was seen on 02/17/17. Subjective Chief Complaint/HPI The patient is a 46-year-old female admitted with a reason for visit of Abdominal Pain. Events since last encounter Patient is a 46 yo female, states that she is weak today, and she had a fever ( with dizziness) this morning (100.6 degrees F). She was given Tylenol, and the fever was not present on exam. She complains of pain all over her abdomen, which extends into her back. Pain also in left thigh, which began yesterday; vascular ultrasound on 02/16/17 negative for DVT. Patient did have a bowel movement yesterday and this morning, which was watery in consistency but denies diarrhea because she has been on laxatives. Patient also complains of palpitations. While with patient, culture came back positive for C. dif. CT on 02/16/17 showed moderate free air in the abdomen, but no perforation could be located; abdominal /pelvic ascites also present. Patient is NPO and has empirically been administered Cipro-Flagyl. Immunology/Serology, GI Tract Panel, and Blood Culture are pending. General: Reports: Chills (Only yesterday with bowel movement), Denies: Night Sweats, Fatigue, Malaise, Normal Appetite, Other Symptoms Constitutional: Reports: Fever, Weakness, Denies: Chills, Malaise, Night Sweats, Fatigue, Weight Loss, Lethargy, Other Eyes: Denies: Pain, Vision change, Conjunctivae inflammation, Eyelid inflammation, Redness, Other Pulmonary: Denies: Dyspnea, Cough, Pleuritic Chest Pain, Other Symptoms Cardiovascular: Reports: Palpitations, Lt Headedness, Denies: Chest Pain, Orthopnea, Paroxysmal Noc. Dyspnea, Edema, Other Symptoms Gastrointestinal: Reports: Abdominal Pain, Diarrhea, Denies: Nausea, Vomiting, Constipation, Melena, Hematochezia, Other Symptoms Musculoskeletal: Reports: Back Pain Objective Physical Examination General Exam: Positive: Cooperative Chest Exam: Positive: Clear to auscultation, Normal air movement, Negative: Rales, Rhonchi, Wheezing, Diminished, Other Heart Exam: Positive: Tachycardic, Regular Rhythm, Normal S1, Normal S2, Negative: Rate Normal, Bradycardic, Irregular Rhythm, Gallops, Murmurs, Rubs , Other Abdomen Exam: Positive: Soft, Tenderness (all over), Other (Negative fluid wave ; BS nl on left, diminished on right) Extremity Exam: Positive: Tenderness (left outer thigh), Swelling (Non-pitting edema) Assessment /Plan Assessment This is a 46-year-old female with abdominal pain. 1. Abdominal pain. At the present time she has been seen and evaluated by Dr. Cummings, Dr. Donovan, and Dr. Gerber. Imaging yesterday showed free air in the abdomen, but could not identify a perforation. This morning, Dr. Gerber saw her and stated that she will not be getting an upper GI series at this time due to inflammation. Patient will remain NPO for the time being, and will be monitored for improvement. Cipro-Flagyl and micafungin empirically started yesterday for bowel perforation. Fungal cultures pending. ID, gi and surgery continued recommendation is appreciated. 2. Eosinophilia. Not visualized at this time. The patient did receive steroids and did have a left shift. She had an extensive workup including testing for Lyme, Babesia, Chikungunya, hepatitis, Leptospirosis, Strongyloides, Toxocara, parvovirus, Dengue. Inflammatory bowel panel is pending as well as ANCAs. Patient finally had bowel movement yesterday; stool sample obtained and cultures are pending. She has been started on bowel regimen by Dr. Donovan. 3. Leukocytosis: improving. Patient did receive SoluMedrol in the ED, but is not currently on any steroids. Per ID, not recommended for patient to be on steroid at this time. 4. Nausea: Patient not experiencing nausea or vomiting after the addition of Reglan to Zofran. Will continue regimen and monitor nausea. 5. C. dif: Patient cultures came back as positive for C. dif this morning. Patient has been on laxatives and denies diarrhea this morning. Will not be treating the C. dif. Will continue to monitor. Plan/VTE VTE Prophylaxis Ordered?: Yes VS, I&O, 24H, Fishbone Vital Signs/I&O Vital Signs Date Time Temp Pulse Resp B/P (MAP) Pulse Ox O2 Delivery O2 Flow Rate FiO2 02/17/17 09:14 18 Room Air 02/17/17 07:35 98.8 135 02/17/17 06:32 121/65 (83) 02/17/17 06:00 94 Laboratory Data 24H LABS Laboratory Tests 2 02/17/17 06:11: White Blood Count 11.1H, Red Blood Count 3.73L, Hemoglobin 10.9L, Hematocrit 32.7L, Mean Corpuscular Volume 87.5, Mean Corpuscular Hemoglobin 29.3, Mean Corpuscular Hemoglobin Concent 33.5, Red Cell Distribution Width 13.0, Platelet Count 353, Neutrophils (%) (Auto) 83.0H, Lymphocytes (%) (Auto) 11.2L, Monocytes (%) (Auto) 3.7, Eosinophils (%) (Auto) 1.2, Basophils (%) (Auto) 0.0, Neutrophils # (Auto) 9.2H, Lymphocytes # (Auto) 1.2L, Monocytes # (Auto) 0.4, Eosinophils # (Auto) 0.1, Basophils # (Auto) 0.0, Large Unclassified Cells % 0.8 , Large Unclassified Cells # 0.1, Anion Gap 10, Glomerular Filtration Rate > 60.0, Blood Urea Nitrogen 7, Creatinine 0.59, Sodium Level 137, Potassium Level 3.5, Chloride Level 103, Carbon Dioxide Level 24, Calcium Level 7.4L CBC/BMP Laboratory Tests 02/17/17 06:11 Red Blood Count 3.73 L, Mean Corpuscular Volume 87.5, Mean Corpuscular Hemoglobin 29.3, Mean Corpuscular Hemoglobin Concent 33.5, Red Cell Distribution Width 13.0, Neutrophils (%) (Auto) 83.0 H, Lymphocytes (%) (Auto) 11.2 L, Monocytes (%) (Auto) 3.7, Eosinophils (%) (Auto) 1.2, Basophils (%) ( Auto) 0.0, Neutrophils # (Auto) 9.2 H, Lymphocytes # (Auto) 1.2 L, Monocytes # ( Auto) 0.4, Eosinophils # (Auto) 0.1, Basophils # (Auto) 0.0, Calcium Level 7.4 L Microbiology Microbiology 02/16/17 Blood Culture, Received Pending 02/16/17 Blood Culture, Received Pending 02/14/17 Blood Culture - Preliminary, Resulted No Growth after 72 hours. All specime... 02/13/17 Blood Culture - Preliminary, Resulted No Growth after 72 hours. All specime... 02/17/17 Gastrointestinal Tract Panel (PCR), Received Pending ALIE BULLARD DO Feb 17, 2017 10:04
[2017-02-17 14:00] VITALS: BP 120/72
[2017-02-17] MEDS: MICAFUNGIN SODIUM 100 MG in D5W MINI-BAG PLUS 100 ML IV SCH (14:49)
--- NOTE | 2017-02-17 21:53 | IPN ---
DATE: 02/17/2017 The patient is doing much better. She had a small bowel perforation over the weekend. Since then, her abdominal pain has improved. She had MiraLax and milk of magnesia over the weekend, then Senokot two tablets, finally moved one bowel, and had a stool specimen sent for testing. Ova and parasite were negative but Clostridium (C) difficile was positive. The patient does not have diarrhea and does not have C. difficile. She is probably colonized from being in the hospital. She had no nausea or vomiting for the past 48 hours. She is actually feeling hungry. Maximum temperature (T-max) was 100.3, currently 98, pulse 109, respirations 20, blood pressure 120/72, oxygen saturation 99% on room air. HEART: Normal S1, S2. No murmurs. LUNGS: Clear. ABDOMEN: Still distended, mildly tender. No rebound. BACK: No costovertebral angle (CVA) tenderness. EXTREMITIES: No edema. LABORATORY DATA: White count is 11.1, hemoglobin 10.9, hematocrit 32.7, platelets 353, 83% neutrophils, 11% lymphocytes. Sodium 137, potassium 3.5, chloride 103, bicarbonate 24, BUN 7, creatinine 0.6, glucose 88, calcium 7.4, cholesterol 116, triglycerides 110, ANCA is pending. Saccharomyces antibodies are pending. Stool, GI panel was negative except for C. difficile. Blood cultures, four sets are negative. Vascular ultrasound of the lower extremities done on 02/16/[address] abdomen shows scattered free intraperitoneal air with moderate abdominal and pelvic ascites and persistent thickened small bowel loops. IMPRESSION: 1. Abdominal pain with small bowel inflammation and edema. Clostridium (C) difficile is not the culprit. The patient ended up with perforation and is on Cipro and Flagyl IV for bowel perforation and doing better. There is no need to cover for fungus. The patient is not immunocompromised. We can discontinue IV micafungin 2. Eosinophilia has resolved at this time. We will continue to monitor. 3. 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 The patient does not have diarrhea. Laxatives have been on hold and would not treat for C. difficile. PLAN: Continue Cipro and Flagyl for bowel perforation. If symptoms persist, she will need further workup as an outpatient to look for the reason for the small bowel inflammation, possible vasculitis or eosinophilic gastroenteritis. The case has been discussed with Dr. Gerber and Dr. Donovan.
[2017-02-17 22:00] VITALS: BP 133/85
[2017-02-18] MEDS: CIPROFLOXACIN 400 MG in APPROPRIATE DILUENT 1 EA IV SCH ×2 (00:11→12:23)
[2017-02-18] MEDS: NORCO, ANEXSIA 5/325MG TABLET (HYDROcodone/ACETAMINOPHEN) PO PRN (01:28)
[2017-02-18] MEDS: METOCLOPRAMIDE INJ 10MG/2ML VIAL (J2765) IV SCH ×4 (01:30→17:59)
[2017-02-18] MEDS: MORPHINE 4 MG/ML 1ML SYRINGE IV PRN (03:02)
[2017-02-18] MEDS: ONDANSETRON 4MG/2ML VIAL (J2405) IV PRN ×3 (04:58→20:53)
[2017-02-18] MEDS: metroNIDAZOLE 500 MG in APPROPRIATE DILUENT 1 EA IV SCH ×3 (04:58→20:53)
[2017-02-18 06:00] VITALS: BP 134/71
[2017-02-18 06:28] LABS: BASO % 0.2 % (0.0-1.0); EOS # 0.2 10^3/uL (0.0-0.50); EOS % 1.7 % (0.0-3.0); IMMATURE GRANULOCYTE % 0.6 % (0-0); LYMPH # 1.7 10^3/uL (1.5-4.5); LYMPH % 14.8 % (24.0-44.0); MEAN CORPUSCULAR HEMOGLOBIN 27.9 pg (27.0-33.0); MEAN CORPUSCULAR HGB CONC 32.3 g/dl (32.0-36.5); MEAN CORPUSCULAR VOLUME 86.5 fl (80.0-96.0); MONO # 0.9 10^3/uL (0.0-0.8); MONO % 7.9 % (0.0-5.0); NEUTROPHILS # 8.7 10^3/uL (1.8-7.7); NEUTROPHILS % 74.8 % (36.0-66.0); PLATELET COUNT, AUTOMATED 371 10^3/uL (150-450); RED CELL DISTRIBUTION WIDTH 14.1 % (11.5-14.5); WHITE BLOOD COUNT 11.6 10^3/uL (4.0-10.0)
[2017-02-18 06:50] LABS: ANION GAP 11 MEQ/L (8-16); BLOOD UREA NITROGEN 6 MG/DL (7-18); CALCIUM LEVEL 8.2 MG/DL (8.5-10.1); CARBON DIOXIDE LEVEL 25 MEQ/L (21-32); CHLORIDE LEVEL 100 MEQ/L (98-107); GLOMERULAR FILTRATION RATE > 60.0 (>58); GLUCOSE, FASTING 90 MG/DL (70-105); POTASSIUM SERUM 3.2 MEQ/L (3.5-5.1); SODIUM LEVEL 136 MEQ/L (136-145)
[2017-02-18 08:20] VITALS: BP 136/77
[2017-02-18] MEDS: PANTOPRAZOLE 40MG INJ (PROTONIX) (C9113) IV SCH ×2 (09:12→20:53)
[2017-02-18] MEDS: MESALAMINE 250 MG CR CAP PO SCH ×4 (09:13→20:53)
[2017-02-18] MEDS: SENOKOT S TAB PO SCH ×2 (09:13→20:53)
[2017-02-18] MEDS: ENOXAPARIN 40 MG/0.4 ML SYRINGE (J1650) SC SCH (09:13)
--- NOTE | 2017-02-18 11:49 | IPNPDOC ---
Subjective Date Seen The patient was seen on 02/18/17. Subjective Chief Complaint/HPI The patient is a 46-year-old female admitted with a reason for visit of Abdominal Pain. Events since last encounter Dr. Cummings saw patient yesterday and states that the patient does not have diarrhea or C. dif (likely colonized while in hospital). Micafungin was discontinued, but Cipro and Flagyl continued for bowel perforation. Dr. Cummings mentioned that the patient should have a workup for her inflammation as an outpatient if symptoms persist. Patient states that she felt better yesterday, but she is feeling bloated and her abdomen is tender all over again today. Patient also had nausea this morning after taking her shower, but after she was given medicine it improved. Patient denies having a bowel movement, but she states that it is because she has not eaten. Patient admits to hunger. Patient admits that the pain in her left thigh from yesterday has gone away. She has been walking a lot (including today), which helped. Patient again states that her legs and feet feel swollen. Patient temperature this morning is 99.0 degrees F. Afebrile since 925 AM. General: Reports: Normal Appetite Cardiovascular: Reports: Edema (Legs and feet still feel swollen bilaterally) Gastrointestinal: Reports: Nausea (This morning, better after medicine), Abdominal Pain (Tender all over abdomen), Other Symptoms (No bowel movement because she has not eaten; feels bloated), Denies: Diarrhea, Constipation Musculoskeletal: Denies: Leg Pain (Left leg pain improved after walking halls yesterday) Objective Physical Examination General Exam: Positive: Cooperative Chest Exam: Positive: Clear to auscultation, Normal air movement, Negative: Rales, Rhonchi, Wheezing, Diminished, Other Heart Exam: Positive: Tachycardic, Regular Rhythm, Normal S1, Normal S2, Negative: Rate Normal, Bradycardic, Irregular Rhythm, Gallops, Murmurs, Rubs , Other Abdomen Exam: Positive: BS Hypoactive (Soft bowel sounds x 4), Soft, Tenderness (all over), Negative: Normal bowel sounds Extremity Exam: Positive: Swelling (Non-pitting edema), Negative: Tenderness (Left thigh tenderness not present) Assessment /Plan Assessment 1. Abdominal pain with small bowel inflammation and edema. The patient is on Cipro and Flagyl IV for bowel perforation; micafungin discontinued by Dr. Cummings. Dr. Cummings also states that patient does not have C. dif. Patient is hungry today , currently NPO. Discussed with surgery, as of right now patient does not need surgery. Will continue NPO status and antibiotics. Will continue to follow the White count for next 24 hours and temperature. If patient has a fever or increased white count tomorrow will order a CT of abdomen to see how the small bowl inflammation is doing. 2. Bowel microperforation. Patient currently being treated empirically with Cipro and Flagyl. Surgery has been consulted. Currently, patient is not being imaged due to inflammation. Per recommendation if patient has a fever or increased white count tomorrow will order a CT of abdomen. Patient has been afebrile since 02/17. 3. Eosinophilia has resolved at this time. We will continue to monitor. 4. 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 Dr. Cummings has been consulted and we appreciate her input. The patient does not have diarrhea. Laxatives have been on hold and we will not treat for C. difficile. Patient was likely colonized in hospital. 5. Low grade fever. Patient has been afebrile since 02/17 at 0735. Patient temperature currently 99.8 degrees F. Will keep Acetaminophen on board and monitor temperature. WBC 11.6 today, was 13.0 on admission. Patient is currently being treated empirically for bowel perforation with Cipro and Flagyl. Will continue this regimen. 6. Nausea. Patient was nauseous after her shower this morning, resolved with Reglan. Patient has Zofran and Reglan on board to manage nausea. Plan/VTE VTE Prophylaxis Ordered?: Yes VS, I&O, 24H, [facility] Vital Signs/I&O Vital Signs Date Time Temp Pulse Resp B/P (MAP) Pulse Ox O2 Delivery O2 Flow Rate FiO2 02/18/17 06:00 99.0 122 17 134/71 (92) 100 Room Air Laboratory Data 24H LABS Laboratory Tests 2 02/18/17 05:39: White Blood Count 11.6H, Red Blood Count 3.62L, Hemoglobin 10.1L, Hematocrit 31.3L, Mean Corpuscular Volume 86.5, Mean Corpuscular Hemoglobin 27.9, Mean Corpuscular Hemoglobin Concent 32.3, Red Cell Distribution Width 14.1, Platelet Count 371, Neutrophils (%) (Auto) 74.8H, Lymphocytes (%) (Auto) 14.8L, Monocytes (%) (Auto) 7.9H, Eosinophils (%) (Auto) 1.7, Basophils (%) (Auto) 0.2 , Neutrophils # (Auto) 8.7H, Lymphocytes # (Auto) 1.7, Monocytes # (Auto) 0.9H, Eosinophils # (Auto) 0.2, Basophils # (Auto) 0.0, Immature Granulocyte # (Auto) 0.1H, Nucleated Red Blood Cells % (auto) 0.0, Anion Gap 11, Glomerular Filtration Rate > 60.0, Blood Urea Nitrogen 6L, Creatinine 0.50L, Sodium Level 136, Potassium Level 3.2L, Chloride Level 100, Carbon Dioxide Level 25, Calcium Level 8.2L CBC/BMP Laboratory Tests 02/18/17 05:39 Red Blood Count 3.62 L, Mean Corpuscular Volume 86.5, Mean Corpuscular Hemoglobin 27.9, Mean Corpuscular Hemoglobin Concent 32.3, Red Cell Distribution Width 14.1, Neutrophils (%) (Auto) 74.8 H, Lymphocytes (%) (Auto) 14.8 L, Monocytes (%) (Auto) 7.9 H, Eosinophils (%) (Auto) 1.7, Basophils (%) ( Auto) 0.2, Neutrophils # (Auto) 8.7 H, Lymphocytes # (Auto) 1.7, Monocytes # ( Auto) 0.9 H, Eosinophils # (Auto) 0.2, Basophils # (Auto) 0.0, Calcium Level 8.2 L Microbiology Microbiology 02/16/17 Blood Culture - Preliminary, Resulted No growth after 24 hours . All specim... 02/16/17 Blood Culture - Preliminary, Resulted No growth after 24 hours . All specim... 02/14/17 Blood Culture - Preliminary, Resulted No Growth after 72 hours. All specime... 02/13/17 Blood Culture - Preliminary, Resulted No Growth after 72 hours. All specime... 02/17/17 Gastrointestinal Tract Panel (PCR) - Final, Complete Clostridium Difficile A/B GME ATTESTATION GME ATTESTATION My preceptor for this patient encounter was physically present in the building during the encounter and was fully available. As needed, all aspects of the patient interview, examination, medical decision making process, and medical care plan development were reviewed and approved by the preceptor. Preceptor is aware and concurs with the plan as stated in the body of this note and will attest to such by his/her cosignature. ALIE BULLARD, Feb 18, 2017 08:19
[2017-02-18] MEDS: ACETAMINOPHEN TAB 650MG DOSE (2X325MG) PO PRN ×2 (12:24→20:54)
[2017-02-18] MEDS ORDERED: GASTROGRAFIN SOLUTION 30ML PO ONE (14:45)
--- NOTE | 2017-02-18 14:46 | IPNPDOC ---
Date Seen The patient was seen on 02/18/17. Progress Note SUBJECTIVE: Patient is a 46-year-old female with abdominal pain. She is examined at bedside this afternoon. She is sitting in the chair asleep when I walk in. Patient developed a fever this afternoon of 102.2. She states that she feels weak and nauseated. She states that she did ambulate today without incident, but feels incredibly weak. She feels somewhat more distended in her abdomen and states that the pain is diffuse across her abdomen and has a burning sensation along the lateral aspects of her abdomen. She denies urinary symptoms. OBJECTIVE PHYSICAL EXAMINATION: VITAL SIGNS: Please see below. GENERAL: Uncomfortable appearing female, appears somewhat clammy, feels warm to touch. HEENT: Atraumatic, normocephalic, PERRL, EOMI, oral mucosa appears pink and moist, nasal septum appears midline. CARDIOVASCULAR: Regular rate and rhythm, normal S1 and S2, no murmur, rub, click. RESPIRATORY: Clear to auscultation bilaterally, adequate inspiratory and expiratory airway excursion, no wheeze, rhonchi, crackles. ABDOMINAL: Somewhat distended, tender to palpation, no guarding or rebound with light palpation. EXTREMITIES: Warm, peripheral pulses appreciated bilaterally, equal, symmetrical , +2, no point tenderness noted on the vertebral segments. NEUROLOGICAL: CN II-XII grossly intact. PSYCHOLOGICAL: Somewhat uncomfortable in appearance. LABORATORY DATA: Please see below. MICROBIOLOGY: Please see below. DVT prophylaxis ordered?: Lovenox 40mg SC daily ASSESSMENT AND PLAN: This is a 46-year-old female with abdominal pain. PROBLEMS: 1. Fever: Patient developed a fever this afternoon. Was previously afebrile overnight. Did have a fever in the morning yesterday. Per general surgery, if changes occurred in patient's clinical status repeat imaging may need to be performed. An order has been placed for an updated CT abdomen and pelvis. Will await result. Patient remains on Ciprofloxacin and Metronidazole. 2. Abdominal pain with small bowel inflammation, perforation, and partial small bowel obstruction: Patient remains NPO. An updated CT abdomen and pelvis will be obtained secondary to patient's fever. Patient continues to experience diffuse abdominal pain and distention. Patient remains on Mesalamine, Reglan, [place], Morphine, Tylenol, Zofran, and Protonix. 3. Constipation: Patient had one BM yesterday which was moderate. Patient remains on Senokot S twice a day. She remains on Miralax and Milk of Magnesia as needed. DISPOSITION: Continue with Metronidazole and Ciprofloxacin for the time-being. Obtain CT abdomen and pelvis. VS, I&O, 24H, Fishbone Vital Signs/I&O Vital Signs Date Time Temp Pulse Resp B/P (MAP) Pulse Ox O2 Delivery O2 Flow Rate FiO2 02/18/17 13:14 102.2 02/18/17 08:20 102 18 136/77 (96) 97 Room Air I&O- Last 24 Hours up to 6 AM 02/19/17 06:00 Intake Total 0 ml Output Total 0 ml Balance 0 ml Laboratory Data 24H LABS Laboratory Tests 2 02/18/17 05:39: White Blood Count 11.6H, Red Blood Count 3.62L, Hemoglobin 10.1L, Hematocrit 31.3L, Mean Corpuscular Volume 86.5, Mean Corpuscular Hemoglobin 27.9, Mean Corpuscular Hemoglobin Concent 32.3, Red Cell Distribution Width 14.1, Platelet Count 371, Neutrophils (%) (Auto) 74.8H, Lymphocytes (%) (Auto) 14.8L, Monocytes (%) (Auto) 7.9H, Eosinophils (%) (Auto) 1.7, Basophils (%) (Auto) 0.2 , Neutrophils # (Auto) 8.7H, Lymphocytes # (Auto) 1.7, Monocytes # (Auto) 0.9H, Eosinophils # (Auto) 0.2, Basophils # (Auto) 0.0, Immature Granulocyte # (Auto) 0.1H, Nucleated Red Blood Cells % (auto) 0.0, Anion Gap 11, Glomerular Filtration Rate > 60.0, Blood Urea Nitrogen 6L, Creatinine 0.50L, Sodium Level 136, Potassium Level 3.2L, Chloride Level 100, Carbon Dioxide Level 25, Calcium Level 8.2L CBC/BMP Laboratory Tests 02/18/17 05:39 Red Blood Count 3.62 L, Mean Corpuscular Volume 86.5, Mean Corpuscular Hemoglobin 27.9, Mean Corpuscular Hemoglobin Concent 32.3, Red Cell Distribution Width 14.1, Neutrophils (%) (Auto) 74.8 H, Lymphocytes (%) (Auto) 14.8 L, Monocytes (%) (Auto) 7.9 H, Eosinophils (%) (Auto) 1.7, Basophils (%) ( Auto) 0.2, Neutrophils # (Auto) 8.7 H, Lymphocytes # (Auto) 1.7, Monocytes # ( Auto) 0.9 H, Eosinophils # (Auto) 0.2, Basophils # (Auto) 0.0, Calcium Level 8.2 L Microbiology Microbiology 02/16/17 Blood Culture - Preliminary, Resulted No Growth after 48 hours. All Specime... 02/16/17 Blood Culture - Preliminary, Resulted No Growth after 48 hours. All Specime... 02/14/17 Blood Culture - Preliminary, Resulted No Growth after 72 hours. All specime... 02/13/17 Blood Culture - Preliminary, Resulted No Growth after 72 hours. All specime... 02/17/17 Gastrointestinal Tract Panel (PCR) - Final, Complete Clostridium Difficile A/B ROQUE CORBIN-Shell Feb 18, 2017 14:46
[2017-02-18] MEDS ORDERED: GASTROGRAFIN SOLUTION 30ML (Q9963) PO ONE (15:15)
[2017-02-18] MEDS: NS 1,000 ML IV SCH ×2 (15:15→23:35)
[2017-02-18 16:28] VITALS: BP 124/69
--- NOTE | 2017-02-18 17:26 | IPNPDOC ---
Date Seen The patient was seen on 02/18/17. Progress Note SUBJECTIVE: Patient is a 46-year-old female admitted for abdominal pain. Surgery was consulted on 02/15/2017, because CT revealed small bowel wall thickening with surrounding inflammation and moderate ascites involving the majority of the jejunum and ileum. She has since had a second CT on 02/16/17. The second CT showed moderate scattered free intraperitoneal air. With moderate abdominal and pelvic ascites. It also showed persistent thickened small bowel loops. This morning patient states that her pain is doing better. She complain of nausea with taking her pain medications of an empty stomach. He has been ambulatory on the halls throughout the night. She denied any bowl movement, but recalled that she had 3 bowel movements the day prior. OBJECTIVE PHYSICAL EXAMINATION: VITAL SIGNS: Please see below. GENERAL: Alert, comfortable sitting in a chair. CARDIOVASCULAR: S1 and S2 are present, no murmurs, no rubs, no gallops RESPIRATORY: Lungs are clear to auscultate anteriorly and bilaterally. ABDOMINAL: Mild distention. Pain with palpation on abdomen, bowel sounds presents in all 4 quadrant. EXTREMITIES: No deformities, no swelling, no bruising LABORATORY DATA: Please see below. MICROBIOLOGY: Please see below. IMAGING: Abdominal CT on 02/13/2017: Diffuse small bowel wall thickening with surrounding inflammation and moderate amount of ascites the majority of the jejunum and ileum. No focal site of obstruction is seen. Differential diagnosis includes colitis versus inflammatory bowel disease such as Crohn's disease. Abdominal CT on 02/16/2017:Moderate scattered free intraperitoneal air. Moderate abdominal and pelvic ascites. Persistent thickened small bowel loops ASSESSMENT AND PLAN: 46-year-old female admitted for severe abdominal pain. Repeat CT revealed moderate scattered free intraperitoneal air. At this point, patient will remain NPO because of her bowel perforation. She was showing clinical signs of improvements, however, given her resent spike in temperature, leading to a fever. I am concerned about the the development of an abscess. I would recommend a repeat CBC in the AM. And if her WBC is elevated. I would recommend a repeat abdomen CT and ultrasound guided drainage of her abdominal abscess. VS, I&O, 24H, Fishbone Vital Signs/I&O Vital Signs Date Time Temp Pulse Resp B/P (MAP) Pulse Ox O2 Delivery O2 Flow Rate FiO2 02/18/17 16:28 99.3 99 18 124/69 (87) 99 Room Air I&O- Last 24 Hours up to 6 AM 02/19/17 06:00 Intake Total 0 ml Output Total 0 ml Balance 0 ml Laboratory Data 24H LABS Laboratory Tests 2 02/18/17 05:39: White Blood Count 11.6H, Red Blood Count 3.62L, Hemoglobin 10.1L, Hematocrit 31.3L, Mean Corpuscular Volume 86.5, Mean Corpuscular Hemoglobin 27.9, Mean Corpuscular Hemoglobin Concent 32.3, Red Cell Distribution Width 14.1, Platelet Count 371, Neutrophils (%) (Auto) 74.8H, Lymphocytes (%) (Auto) 14.8L, Monocytes (%) (Auto) 7.9H, Eosinophils (%) (Auto) 1.7, Basophils (%) (Auto) 0.2 , Neutrophils # (Auto) 8.7H, Lymphocytes # (Auto) 1.7, Monocytes # (Auto) 0.9H, Eosinophils # (Auto) 0.2, Basophils # (Auto) 0.0, Immature Granulocyte # (Auto) 0.1H, Nucleated Red Blood Cells % (auto) 0.0, Anion Gap 11, Glomerular Filtration Rate > 60.0, Blood Urea Nitrogen 6L, Creatinine 0.50L, Sodium Level 136, Potassium Level 3.2L, Chloride Level 100, Carbon Dioxide Level 25, Calcium Level 8.2L 02/18/17 14:46: Lactic Acid Level 0.7, C-Reactive Protein, Quantitative 31.20H CBC/BMP Laboratory Tests 02/18/17 05:39 Red Blood Count 3.62 L, Mean Corpuscular Volume 86.5, Mean Corpuscular Hemoglobin 27.9, Mean Corpuscular Hemoglobin Concent 32.3, Red Cell Distribution Width 14.1, Neutrophils (%) (Auto) 74.8 H, Lymphocytes (%) (Auto) 14.8 L, Monocytes (%) (Auto) 7.9 H, Eosinophils (%) (Auto) 1.7, Basophils (%) ( Auto) 0.2, Neutrophils # (Auto) 8.7 H, Lymphocytes # (Auto) 1.7, Monocytes # ( Auto) 0.9 H, Eosinophils # (Auto) 0.2, Basophils # (Auto) 0.0, Calcium Level 8.2 L Microbiology Microbiology 02/16/17 Blood Culture - Preliminary, Resulted No Growth after 48 hours. All Specime... 02/16/17 Blood Culture - Preliminary, Resulted No Growth after 48 hours. All Specime... 02/14/17 Blood Culture - Preliminary, Resulted No Growth after 72 hours. All specime... 02/13/17 Blood Culture - Preliminary, Resulted No Growth after 72 hours. All specime... 02/17/17 Gastrointestinal Tract Panel (PCR) - Final, Complete Clostridium Difficile A/B GME ATTESTATION GME ATTESTATION My preceptor for this patient encounter was physically present in the building during the encounter and was fully available. As needed, all aspects of the patient interview, examination, medical decision making process, and medical care plan development were reviewed and approved by the preceptor. Preceptor is aware and concurs with the plan as stated in the body of this note and will attest to such by his/her cosignature. SCAR DEVI DO Feb 18, 2017 17:26
[2017-02-18 21:00] VITALS: BP 130/67
[2017-02-19] MEDS: METOCLOPRAMIDE INJ 10MG/2ML VIAL (J2765) IV SCH ×4 (00:02→19:02)
[2017-02-19 00:06] LABS: ANTI-SACCHAROMYCES CEREV. IgA <20.0 Units (0.0-24.9); ANTI-SACCHAROMYCES CEREV. IgG <20.0 Units (0.0-24.9)
[2017-02-19] MEDS ORDERED: ONDANSETRON 4MG/2ML VIAL (J2405) IV ONE (01:45)
--- NOTE | 2017-02-19 03:31 | REP ---
Clinical: Abdominal pain and fever. Technique: Axial images from the lung bases to the pubic symphysis using oral contrast material with coronal and sagittal re-formations. Comparison: 02/16/2017. Findings: Current examination again demonstrates moderate amount of ascites and diffuse mesenteric stranding as well as small amount of pneumoperitoneum consistent with bowel perforation. The bowel gas pattern is not significantly changed and dilated, contrast filled loops of small bowel are appreciated to the level of the left mid abdomen. Partial obstruction cannot be excluded. The colon is essentially collapsed. Discrete abscess within the abdomen/pelvis cannot be excluded due to the lack of incomplete oral contrast opacification and lack of intravenous contrast enhancement. Liver, spleen, pancreas, bilateral adrenal glands and kidneys are relatively normal / stable. Mild right hydronephrosis cannot be excluded, and while calcifications within the pelvis likely represent scattered phleboliths, distal right ureteral calculus cannot be excluded as well. Further evaluation of the pelvis demonstrates relatively normal appearance the bladder and age-appropriate appearance of the uterus/adnexa. No obvious adenopathy. No obvious mass. Small fat containing periumbilical hernia measures 1.3 cm. Musculoskeletal structures demonstrate age-related degenerative changes. Lung bases demonstrate bibasilar atelectasis (right greater than left). Impression: 1. Ascites, mesenteric stranding, and small amount of free air are relatively similar to prior examination and suggest element of bowel perforation. Discrete abscess cannot be excluded based on current examination. Partial bowel obstruction cannot be excluded although complete obstruction is less likely given the presumed passage of colonic contrast in comparison to prior examination. Associated enterocolitis cannot be excluded. 2. Mild right hydroureteronephrosis. 3. Mild bibasilar atelectasis (right greater than left). Signed by Ahmet Saldaña MD 02/19/2017 03:22 A
[2017-02-19] MEDS: ONDANSETRON 4MG/2ML VIAL (J2405) IV PRN ×3 (04:21→22:18)
[2017-02-19] MEDS: metroNIDAZOLE 500 MG in APPROPRIATE DILUENT 1 EA IV SCH ×3 (05:00→20:57)
[2017-02-19 05:45] VITALS: BP 128/65
[2017-02-19 06:10] LABS: BASO % 0.2 % (0.0-1.0); EOS # 0.1 10^3/uL (0.0-0.50); IMMATURE GRANULOCYTE % 0.6 % (0-0); LYMPH # 1.4 10^3/uL (1.5-4.5); MEAN CORPUSCULAR HEMOGLOBIN 28.3 pg (27.0-33.0); MEAN CORPUSCULAR HGB CONC 33.3 g/dl (32.0-36.5); MONO % 9.8 % (0.0-5.0); NEUTROPHILS # 7.7 10^3/uL (1.8-7.7); NEUTROPHILS % 74.4 % (36.0-66.0); PLATELET COUNT, AUTOMATED 396 10^3/uL (150-450); RED CELL DISTRIBUTION WIDTH 14.1 % (11.5-14.5); WHITE BLOOD COUNT 10.3 10^3/uL (4.0-10.0)
[2017-02-19 06:29] LABS: ANION GAP 11 MEQ/L (8-16); BLOOD UREA NITROGEN 7 MG/DL (7-18); CALCIUM LEVEL 7.9 MG/DL (8.5-10.1); CARBON DIOXIDE LEVEL 24 MEQ/L (21-32); CHLORIDE LEVEL 103 MEQ/L (98-107); CREATININE FOR GFR 0.47 MG/DL (0.55-1.02); GLOMERULAR FILTRATION RATE > 60.0 (>58); GLUCOSE, FASTING 97 MG/DL (70-105); POTASSIUM SERUM 3.1 MEQ/L (3.5-5.1); SODIUM LEVEL 138 MEQ/L (136-145)
[2017-02-19] MEDS: NS 1,000 ML IV SCH (07:55)
[2017-02-19] MEDS: MESALAMINE 250 MG CR CAP PO SCH ×4 (09:00→20:58)
[2017-02-19] MEDS: ENOXAPARIN 40 MG/0.4 ML SYRINGE (J1650) SC SCH ×2 (09:00→09:11)
[2017-02-19] MEDS: SENOKOT S TAB PO SCH ×2 (09:00→20:58)
[2017-02-19] MEDS: PROMETHAZINE INJ 25 MG/ML VIAL (J2550) IV PRN ×2 (09:11→17:21)
[2017-02-19] MEDS: PANTOPRAZOLE 40MG INJ (PROTONIX) (C9113) IV SCH ×2 (09:11→20:58)
--- NOTE | 2017-02-19 09:38 | IPNPDOC ---
Subjective Date Seen The patient was seen on 02/19/17. Subjective Chief Complaint/HPI The patient is a 46-year-old female admitted with a reason for visit of Abdominal Pain. Events since last encounter Patient had a fever of 102.2 degrees F at 1314 on 02/18, which was reduced after Tylenol, and another of 100.7 degrees F at 2100. She also had a CT yesterday, which showed no changes from previous imaging, but could not rule out abscess or obstruction. After, she vomited 3x and had diarrhea, likely contrast since she is NPO. Patient has been seen by surgery this morning. They will do an ultrasound guided abscess drainage today. Patient is still very nauseous today; expresses concern that her nausea medication regimen is unclear, and as a result, she is not getting the medication as often as she should to make her comfortable. Her abdomen pain/ bloating is the same. She has not had pain medication in over a day. Patient denies CP, changes in breathing. She still feels like her legs are swollen. Constitutional: Reports: Fever (Feels hot when she gets fever spike) ENT: Denies: Head Aches Pulmonary: Denies: Dyspnea Cardiovascular: Denies: Chest Pain Gastrointestinal: Reports: Nausea, Vomiting, Abdominal Pain (Extends to both sides, not into back), Other Symptoms (Bloating) Hematologic: Denies: Bruising (Denies abdominal bruising) Musculoskeletal: Denies: Back Pain Objective Physical Examination General Exam: Positive: Cooperative Chest Exam: Positive: Clear to auscultation, Normal air movement, Negative: Rales, Rhonchi, Wheezing, Diminished, Other Heart Exam: Positive: Tachycardic, Regular Rhythm, Normal S1, Normal S2, Negative: Rate Normal, Bradycardic, Irregular Rhythm, Gallops, Murmurs, Rubs , Other Abdomen Exam: Positive: BS Hypoactive (More diminished on right side), Soft, Tenderness (all over), Negative: Normal bowel sounds Extremity Exam: Positive: Swelling (Non-pitting edema), Negative: Tenderness Assessment /Plan Assessment 1. Abdominal pain with small bowel inflammation and edema. The patient is on Cipro and Flagyl IV for bowel perforation; CT yesterday showed mild free air, ascites, mesenteric stranding similar to previous imaging; could not exclude abscess, obstruction, or enterocolitis. CT also shows mild right hydroureteronephrosis and mild bibasilar atelectasis (right greater than left). Surgery has been consulted, and they will schedule an ultrasound guided abscess drainage. We appreciate input from surgical service. Will continue to monitor for improvement. 2. Bowel microperforation. Patient currently being treated empirically with Cipro and Flagyl. CT yesterday showed mild free air, ascites, mesenteric stranding similar to previous imaging; could not exclude abscess, obstruction, or enterocolitis. CT also shows mild right hydrouteronephrosis and mild bibasilar atelectasis (right greater than left). Surgery has been consulted, they are scheduling an ultrasound guided abscess drainage. We will continue to monitor for improvement. 3. Eosinophilia has resolved at this time. We will continue to monitor. 4. 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 Laxatives have been on hold and we will not treat for C. difficile. Patient was likely colonized in hospital. 5. Fever. Patient had fever yesterday, with Tmax 102.2 degrees F at 1314, and another of 100.7 degrees F at 2100. Patient has been given Acetaminophen for fever, current temperature is 98.9 degrees F. We will continue to have Acetaminophen on board and continue to monitor temperature. 6. Nausea with vomiting. Patient vomited 3x after CT scan, likely due to contrast. Patient is currently NPO with sips. Patient has Zofran and Reglan on board to manage nausea. Dr. Gerber added Phenergan this morning. Plan/VTE VTE Prophylaxis Ordered?: Yes Disposition Attending Note: Discussed all aspects of the evaluation with the resident. Patient was independently evaluated and will continue to be seen by a hospitalist during the course of this hospital stay. VS, I&O, 24H, Fishbone Vital Signs/I&O Vital Signs Date Time Temp Pulse Resp B/P (MAP) Pulse Ox O2 Delivery O2 Flow Rate FiO2 02/19/17 05:45 98.9 112 17 128/65 (86) 97 Room Air Laboratory Data 24H LABS Laboratory Tests 2 02/18/17 14:46: Lactic Acid Level 0.7, C-Reactive Protein, Quantitative 31.20H 02/19/17 05:18: White Blood Count 10.3H, Red Blood Count 3.53L, Hemoglobin 10.0L, Hematocrit 30.0L, Mean Corpuscular Volume 85.0, Mean Corpuscular Hemoglobin 28.3, Mean Corpuscular Hemoglobin Concent 33.3, Red Cell Distribution Width 14.1, Platelet Count 396, Neutrophils (%) (Auto) 74.4H, Lymphocytes (%) (Auto) 14.0L, Monocytes (%) (Auto) 9.8H, Eosinophils (%) (Auto) 1.0, Basophils (%) (Auto) 0.2 , Neutrophils # (Auto) 7.7, Lymphocytes # (Auto) 1.4L, Monocytes # (Auto) 1.0H, Eosinophils # (Auto) 0.1, Basophils # (Auto) 0.0, Immature Granulocyte # (Auto) 0.1H, Nucleated Red Blood Cells % (auto) 0.0, Anion Gap 11, Glomerular Filtration Rate > 60.0, Blood Urea Nitrogen 7, Creatinine 0.47L, Sodium Level 138, Potassium Level 3.1L, Chloride Level 103, Carbon Dioxide Level 24, Calcium Level 7.9L CBC/BMP Laboratory Tests 02/19/17 05:18 Red Blood Count 3.53 L, Mean Corpuscular Volume 85.0, Mean Corpuscular Hemoglobin 28.3, Mean Corpuscular Hemoglobin Concent 33.3, Red Cell Distribution Width 14.1, Neutrophils (%) (Auto) 74.4 H, Lymphocytes (%) (Auto) 14.0 L, Monocytes (%) (Auto) 9.8 H, Eosinophils (%) (Auto) 1.0, Basophils (%) ( Auto) 0.2, Neutrophils # (Auto) 7.7, Lymphocytes # (Auto) 1.4 L, Monocytes # ( Auto) 1.0 H, Eosinophils # (Auto) 0.1, Basophils # (Auto) 0.0, Calcium Level 7.9 L Microbiology Microbiology 02/16/17 Blood Culture - Preliminary, Resulted No Growth after 48 hours. All Specime... 02/16/17 Blood Culture - Preliminary, Resulted No Growth after 48 hours. All Specime... 02/14/17 Blood Culture - Final, Complete NO GROWTH AFTER 5 DAYS 02/13/17 Blood Culture - Final, Complete NO GROWTH AFTER 5 DAYS 02/17/17 Gastrointestinal Tract Panel (PCR) - Final, Complete Clostridium Difficile A/B ALIE BULLARDDO Feb 19, 2017 07:27 MAYITO MEYERS DO Feb 19, 2017 14:06
--- NOTE | 2017-02-19 09:49 | IPNPDOC ---
Date Seen The patient was seen on 02/19/17. Progress Note SUBJECTIVE: Patient is a 46-year-old female admitted for abdominal pain. Surgery was consulted on 02/15/2017, because CT revealed small bowel wall thickening with surrounding inflammation and moderate ascites involving the majority of the jejunum and ileum. She has since had a second CT on 02/16/17. The second CT showed moderate scattered free intraperitoneal air. With moderate abdominal and pelvic ascites. It also showed persistent thickened small bowel loops. On 02/18/2017 patient had a fever of 102.2 at 1314 hrs. patient was given Tylenol and fever subsided, however, around 2100 hrs. patient again had a fever of 100.7. A CT abdomen was repeated on 02/18/17 because of his of patient' s fever. CT was read as ascites, mesenteric stranding, a small amount of free air relative to prior exam suggest element of bowel perforation. It also stated as abscess cannot be excluded based on current examination. OBJECTIVE PHYSICAL EXAMINATION: VITAL SIGNS: Please see below. GENERAL: Alert, resting comfortably on bed with knees up CARDIOVASCULAR: S1 and S2 are present, no murmurs, no rubs, no gallops RESPIRATORY: Lungs are clear to auscultate anteriorly and bilaterally. ABDOMINAL: Mild distention, improved from previous exam. Pain with palpation on abdomen, patient did not complain during exam, but stated that she is able to put up with the pain. Bowel sounds presents in all 4 quadrant. EXTREMITIES: No deformities, no swelling, no bruising LABORATORY DATA: Please see below. MICROBIOLOGY: Please see below. IMAGING: Abdominal CT on 02/13/2017: Diffuse small bowel wall thickening with surrounding inflammation and moderate amount of ascites the majority of the jejunum and ileum. No focal site of obstruction is seen. Differential diagnosis includes colitis versus inflammatory bowel disease such as Crohn's disease. Abdominal CT on 02/16/2017:Moderate scattered free intraperitoneal air. Moderate abdominal and pelvic ascites. Persistent thickened small bowel loops Abdominal CT on 02/18/17: Impression: 1. Ascites, mesenteric stranding, and small amount of free air are relatively similar to prior examination and suggest element of bowel perforation. Discrete abscess cannot be excluded based on current examination. Partial bowel obstruction cannot be excluded although complete obstruction is less likely given the presumed passage of colonic contrast in comparison to prior examination. Associated enterocolitis cannot be excluded. 2. Mild right hydroureteronephrosis. 3. Mild bibasilar atelectasis (right greater than left ASSESSMENT AND PLAN: 46-year-old female admitted for severe abdominal pain. On patient had 2 fevers, the MAXIMUM TEMPERATURE was 102. Patient had a repeat CT scan. Impression for that is noted above. I believe that the fevers are due to an abscess formation from fluid draining from her prior abdominal perforation. An ultrasound-guided abscess drainage for the right-sided fluid has been ordered. I expect patient to make improvement after the drainage. If this does not improve patients clinical course. An ultrasound-guided left-sided abscess drainage should be considered. Patient is currently nothing by mouth. Patient's lab works continue to improve, her white count is continued to steadily decrease in its approaching normal values. At this point management for patient includes pain control, antinausea and management of her abscess. VS, I&O, 24H, Fishbone Vital Signs/I&O Vital Signs Date Time Temp Pulse Resp B/P (MAP) Pulse Ox O2 Delivery O2 Flow Rate FiO2 02/19/17 05:45 98.9 112 17 128/65 (86) 97 Room Air I&O- Last 24 Hours up to 6 AM 02/20/17 06:00 Intake Total 0 ml Output Total 0 ml Balance 0 ml Laboratory Data 24H LABS Laboratory Tests 2 02/18/17 14:46: Lactic Acid Level 0.7, C-Reactive Protein, Quantitative 31.20H 02/19/17 05:18: White Blood Count 10.3H, Red Blood Count 3.53L, Hemoglobin 10.0L, Hematocrit 30.0L, Mean Corpuscular Volume 85.0, Mean Corpuscular Hemoglobin 28.3, Mean Corpuscular Hemoglobin Concent 33.3, Red Cell Distribution Width 14.1, Platelet Count 396, Neutrophils (%) (Auto) 74.4H, Lymphocytes (%) (Auto) 14.0L, Monocytes (%) (Auto) 9.8H, Eosinophils (%) (Auto) 1.0, Basophils (%) (Auto) 0.2 , Neutrophils # (Auto) 7.7, Lymphocytes # (Auto) 1.4L, Monocytes # (Auto) 1.0H, Eosinophils # (Auto) 0.1, Basophils # (Auto) 0.0, Immature Granulocyte # (Auto) 0.1H, Nucleated Red Blood Cells % (auto) 0.0, Anion Gap 11, Glomerular Filtration Rate > 60.0, Blood Urea Nitrogen 7, Creatinine 0.47L, Sodium Level 138, Potassium Level 3.1L, Chloride Level 103, Carbon Dioxide Level 24, Calcium Level 7.9L CBC/BMP Laboratory Tests 02/19/17 05:18 Red Blood Count 3.53 L, Mean Corpuscular Volume 85.0, Mean Corpuscular Hemoglobin 28.3, Mean Corpuscular Hemoglobin Concent 33.3, Red Cell Distribution Width 14.1, Neutrophils (%) (Auto) 74.4 H, Lymphocytes (%) (Auto) 14.0 L, Monocytes (%) (Auto) 9.8 H, Eosinophils (%) (Auto) 1.0, Basophils (%) ( Auto) 0.2, Neutrophils # (Auto) 7.7, Lymphocytes # (Auto) 1.4 L, Monocytes # ( Auto) 1.0 H, Eosinophils # (Auto) 0.1, Basophils # (Auto) 0.0, Calcium Level 7.9 L Microbiology Microbiology 02/16/17 Blood Culture - Preliminary, Resulted No Growth after 48 hours. All Specime... 02/16/17 Blood Culture - Preliminary, Resulted No Growth after 48 hours. All Specime... 02/14/17 Blood Culture - Final, Complete NO GROWTH AFTER 5 DAYS 02/13/17 Blood Culture - Final, Complete NO GROWTH AFTER 5 DAYS 02/17/17 Gastrointestinal Tract Panel (PCR) - Final, Complete Clostridium Difficile A/B GME ATTESTATION GME ATTESTATION My preceptor for this patient encounter was physically present in the building during the encounter and was fully available. As needed, all aspects of the patient interview, examination, medical decision making process, and medical care plan development were reviewed and approved by the preceptor. Preceptor is aware and concurs with the plan as stated in the body of this note and will attest to such by his/her cosignature. SCAR DEVI DO Feb 19, 2017 09:49
[2017-02-19] MEDS: CIPROFLOXACIN 400 MG in APPROPRIATE DILUENT 1 EA IV SCH ×3 (13:02)
[2017-02-19] MEDS ORDERED: LIDOCAINE 1% MDV 20ML VIAL As Ordered ONE ×2 (15:10→15:45)
[2017-02-19] MEDS: MORPHINE 4 MG/ML 1ML SYRINGE IV PRN (17:21)
[2017-02-19] MEDS: POTASSIUM CHLORIDE INJ 10 MEQ in NS 1,000 ML IV SCH (17:52)
[2017-02-19 22:00] VITALS: BP 132/98
[2017-02-19] MEDS: NORCO, ANEXSIA 5/325MG TABLET (HYDROcodone/ACETAMINOPHEN) PO PRN (22:19)
[2017-02-20] MEDS: METOCLOPRAMIDE INJ 10MG/2ML VIAL (J2765) IV SCH ×4 (00:25→19:00)
[2017-02-20] MEDS: metroNIDAZOLE 500 MG in APPROPRIATE DILUENT 1 EA IV SCH ×3 (04:37→21:14)
[2017-02-20] MEDS: ONDANSETRON 4MG/2ML VIAL (J2405) IV PRN (04:37)
[2017-02-20 06:00] VITALS: BP 123/72
[2017-02-20 06:29] LABS: BASO % 0.3 % (0.0-1.0); EOS # 0.1 10^3/uL (0.0-0.50); EOS % 0.7 % (0.0-3.0); IMMATURE GRANULOCYTE % 0.8 % (0-0); LYMPH # 1.9 10^3/uL (1.5-4.5); LYMPH % 18.9 % (24.0-44.0); MEAN CORPUSCULAR HEMOGLOBIN 28.1 pg (27.0-33.0); MEAN CORPUSCULAR HGB CONC 33.3 g/dl (32.0-36.5); MEAN CORPUSCULAR VOLUME 84.4 fl (80.0-96.0); MONO # 0.9 10^3/uL (0.0-0.8); MONO % 8.8 % (0.0-5.0); NEUTROPHILS # 6.9 10^3/uL (1.8-7.7); NEUTROPHILS % 70.5 % (36.0-66.0); PLATELET COUNT, AUTOMATED 468 10^3/uL (150-450); RED CELL DISTRIBUTION WIDTH 14.5 % (11.5-14.5); WHITE BLOOD COUNT 9.8 10^3/uL (4.0-10.0)
[2017-02-20] MEDS: POTASSIUM CHLORIDE INJ 10 MEQ in NS 1,000 ML IV SCH ×3 (06:39→17:44)
[2017-02-20] MEDS: MORPHINE 4 MG/ML 1ML SYRINGE IV PRN (06:43)
[2017-02-20 06:45] LABS: ANION GAP 9 MEQ/L (8-16); BLOOD UREA NITROGEN 9 MG/DL (7-18); CARBON DIOXIDE LEVEL 24 MEQ/L (21-32); CHLORIDE LEVEL 108 MEQ/L (98-107); GLOMERULAR FILTRATION RATE > 60.0 (>58); GLUCOSE, FASTING 108 MG/DL (70-105); POTASSIUM SERUM 3.1 MEQ/L (3.5-5.1); SODIUM LEVEL 141 MEQ/L (136-145)
[2017-02-20] MEDS ORDERED: POTASSIUM CHLORIDE 10 MEQ SR TABLET PO ONE (08:00)
--- NOTE | 2017-02-20 08:34 | REP ---
RIGHT ULTRASOUND GUIDED PIGTAIL CATHETER PLACEMENT: The procedure was performed by JAVID Fisher, under the direct supervision of Dr. Bond. The procedure along with its risks, benefits and complications were discussed with the patient prior to the examination. Informed consent was obtained both verbally and written. The patient was identified in the ultrasound suite and placed in a supine position. The right flank was interrogated with ultrasound. An appropriate site was chosen for needle entry and this area was marked, prepped and draped in the usual sterile fashion. A procedural time out was performed to ensure that the correct patient, site and procedure were being performed. Local infiltrative anesthesia was achieved using 1% Xylocaine. A small skin anika was made. A 10-Nepali Skater catheter was advanced into the fluid pocket. Ultrasound guidance was used and the imaging is available on PACS to review. The pigtail portion of the catheter was deployed. The catheter was sutured to the skin. A soft dressing was applied to the catheter entry site and a drainage bag was placed at the end of the catheter. 10 mL of gray fluid were collected and sent to the lab. Results pending. The patient tolerated the procedure well and had no immediate complications. Reviewed by JAVID Pascual 02/20/2017 09:44 AEdited and Signed by Fred Bond MD 02/20/2017 08:00 P
[2017-02-20] MEDS: SENOKOT S TAB PO SCH ×2 (09:00→21:00)
[2017-02-20] MEDS: PANTOPRAZOLE 40MG INJ (PROTONIX) (C9113) IV SCH ×2 (10:54→21:14)
[2017-02-20] MEDS: MESALAMINE 250 MG CR CAP PO SCH ×4 (10:55→21:14)
[2017-02-20] MEDS: ENOXAPARIN 40 MG/0.4 ML SYRINGE (J1650) SC SCH (10:55)
--- NOTE | 2017-02-20 10:58 | IPNPDOC ---
Subjective Date Seen The patient was seen on 02/20/17. Subjective Chief Complaint/HPI The patient is a 46-year-old female admitted with a reason for visit of Abdominal Pain. Events since last encounter Patient had ultrasound guided aspiration of abscess on right side of abdomen yesterday, drain placed. Fluid was sent for culture. Fluid has been draining since, with initial amount measured at 250 mL. The fluid appears to be serosanguinous. The patient states that she is feeling better today after the procedure. She is still nauseous and her abdomen is tender in the lower abdomen. Patient is asking about diet. Patient WBC count is 9.8 (13.0 on admission). Patient was also afebrile this morning at 98.0 degrees F (last fever was on 02/18 evening). General: Reports: Normal Appetite (would like something to sip. ), Denies: Chills, Night Sweats, Fatigue, Malaise Eyes: Denies: Pain, Vision change ENT: Denies: Dysphagia, Sore Throat Pulmonary: Denies: Dyspnea, Cough Gastrointestinal: Reports: Nausea, Abdominal Pain (Still generalized) Objective Physical Examination General Exam: Positive: Cooperative (Patient appears more comfortable this morning) Chest Exam: Positive: Clear to auscultation, Normal air movement, Negative: Rales, Rhonchi, Wheezing, Diminished, Other Heart Exam: Positive: Rate Normal (Rate has been decreasing after being tachycardic for a few days, now below 100 bpm.), Regular Rhythm, Normal S1, Normal S2, Negative: Tachycardic, Bradycardic, Irregular Rhythm, Gallops, Murmurs, Rubs , Other Abdomen Exam: Positive: BS Hypoactive (Patient is still NPO), Soft, Tenderness (Generalized), Negative: Normal bowel sounds Extremity Exam: Positive: Swelling (Non-pitting edema), Negative: Tenderness Assessment /Plan Assessment 1. Abdominal pain with small bowel inflammation and edema. The patient is on Cipro and Flagyl IV for bowel perforation; Patient had ultrasound guided aspiration of abscess in right abdomen to drain fluid. Patient has been actively draining fluid (cultures pending), and is improving; will continue to monitor patient's condition. Surgery has been consulted and will continue to monitor, currently the left abscess does not need to be drain. Will encourage the patient to ambulate to help fluid drainage today. We appreciate their guidance. Diet has been changed to clear liquids per surgery request. 2. Bowel microperforation. Same as above. 3. Fever. Patient had fever on 02/18, with Tmax 102.2 degrees F at 1314, and another of 100.7 degrees F at 2100. Fever has not returned, current temperature is 98.0 degrees F. We will continue to have Acetaminophen on board and continue to monitor temperature. 4. 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 Laxatives have been on hold and we will not treat for C. difficile. Patient was likely colonized in hospital. 5. Nausea with vomiting. Last episode of emesis was 02/18. Nausea remains persistent. Patient has Zofran, Reglan, and Phenergan ordered to control nausea. After speaking to surgery service, patient will be switched to a clear liquid diet today. Depending on patient response, we will consider advancing diet in the coming days. 6. Eosinophilia has resolved at this time. Patient might have continue outpatient work up on this with Dr. Cummings once discharged. ATTENDING NOTE: I have independently examined this patient and all aspects of the exam and treatment decisions have been discussed with the resident. A member of the hospitalist staff will continue to follow this patient through discharge. Plan/VTE VTE Prophylaxis Ordered?: Yes VS, I&O, 24H, Fishbone Vital Signs/I&O Vital Signs Date Time Temp Pulse Resp B/P (MAP) Pulse Ox O2 Delivery O2 Flow Rate FiO2 02/20/17 06:53 16 Room Air 02/20/17 06:00 98.0 94 123/72 (89) 100 Laboratory Data 24H LABS Laboratory Tests 2 02/19/17 14:20: Magnesium Level 2.1 02/20/17 06:15: White Blood Count 9.8, Red Blood Count 3.52L, Hemoglobin 9.9L, Hematocrit 29.7L , Mean Corpuscular Volume 84.4, Mean Corpuscular Hemoglobin 28.1, Mean Corpuscular Hemoglobin Concent 33.3, Red Cell Distribution Width 14.5, Platelet Count 468H, Neutrophils (%) (Auto) 70.5H, Lymphocytes (%) (Auto) 18.9L, Monocytes (%) (Auto) 8.8H, Eosinophils (%) (Auto) 0.7, Basophils (%) (Auto) 0.3 , Neutrophils # (Auto) 6.9, Lymphocytes # (Auto) 1.9, Monocytes # (Auto) 0.9H, Eosinophils # (Auto) 0.1, Basophils # (Auto) 0.0, Immature Granulocyte # (Auto) 0.1H, Nucleated Red Blood Cells % (auto) 0.0, Anion Gap 9, Glomerular Filtration Rate > 60.0, Blood Urea Nitrogen 9, Creatinine 0.50L, Sodium Level 141, Potassium Level 3.1L, Chloride Level 108H, Carbon Dioxide Level 24, Calcium Level 8.0L CBC/BMP Laboratory Tests 02/20/17 06:15 Red Blood Count 3.52 L, Mean Corpuscular Volume 84.4, Mean Corpuscular Hemoglobin 28.1, Mean Corpuscular Hemoglobin Concent 33.3, Red Cell Distribution Width 14.5, Neutrophils (%) (Auto) 70.5 H, Lymphocytes (%) (Auto) 18.9 L, Monocytes (%) (Auto) 8.8 H, Eosinophils (%) (Auto) 0.7, Basophils (%) ( Auto) 0.3, Neutrophils # (Auto) 6.9, Lymphocytes # (Auto) 1.9, Monocytes # (Auto ) 0.9 H, Eosinophils # (Auto) 0.1, Basophils # (Auto) 0.0, Calcium Level 8.0 L Microbiology Microbiology 02/16/17 Blood Culture - Preliminary, Resulted No Growth after 72 hours. All specime... 02/16/17 Blood Culture - Preliminary, Resulted No Growth after 72 hours. All specime... 02/14/17 Blood Culture - Final, Complete NO GROWTH AFTER 5 DAYS 02/13/17 Blood Culture - Final, Complete NO GROWTH AFTER 5 DAYS 02/19/17 Gram Stain - Final, Resulted 02/19/17 Body Fluid Culture, Resulted Pending 02/19/17 Anaerobic Culture, Resulted Pending 02/17/17 Gastrointestinal Tract Panel (PCR) - Final, Complete Clostridium Difficile A/B ALIE BULLARDDO Feb 20, 2017 09:30 MAYITO MEYERS DO Feb 20, 2017 16:06
[2017-02-20] MEDS: CIPROFLOXACIN 400 MG in APPROPRIATE DILUENT 1 EA IV SCH ×3 (12:45)
--- NOTE | 2017-02-20 13:34 | IPNPDOC ---
Date Seen The patient was seen on 02/20/17. Progress Note SUBJECTIVE: Patient is a 46-year-old female admitted for abdominal pain. Surgery was consulted on 02/15/2017, because CT revealed small bowel wall thickening with surrounding inflammation and moderate ascites involving the majority of the jejunum and ileum. She has since had a second CT on 02/16/17. The second CT showed moderate scattered free intraperitoneal air. With moderate abdominal and pelvic ascites. It also showed persistent thickened small bowel loops. On 02/18/2017 patient had a fever of 102.2 at 1314 hrs. patient was given Tylenol and fever subsided, however, around 2100 hrs. patient again had a fever of 100.7. A CT abdomen was repeated on 02/18/17 because of his of patient' s fever. CT was read as ascites, mesenteric stranding, a small amount of free air relative to prior exam suggest element of bowel perforation. It also stated as abscess cannot be excluded based on current examination. Pt had an US guided drainage of her right abdominal abscess a 1210 ml of yellowish colored fluid was removed from her abdomen, cultures pending. She reported that she is feeling a lot better today. Her pain has decrease and she feels that her stomach distension has decreased overall. OBJECTIVE PHYSICAL EXAMINATION: VITAL SIGNS: Please see below. GENERAL: Alert, resting comfortably on bed with knees up CARDIOVASCULAR: S1 and S2 are present, no murmurs, no rubs, no gallops RESPIRATORY: Lungs are clear to auscultate anteriorly and bilaterally. ABDOMINAL: Slightly distended abdomen, improved from previous exam. Continued abscess drainage from her right abdomen. EXTREMITIES: No deformities, no swelling, no bruising LABORATORY DATA: Please see below. MICROBIOLOGY: Please see below. IMAGING: Abdominal CT on 02/13/2017: Diffuse small bowel wall thickening with surrounding inflammation and moderate amount of ascites the majority of the jejunum and ileum. No focal site of obstruction is seen. Differential diagnosis includes colitis versus inflammatory bowel disease such as Crohn's disease. Abdominal CT on 02/16/2017:Moderate scattered free intraperitoneal air. Moderate abdominal and pelvic ascites. Persistent thickened small bowel loops Abdominal CT on 02/18/17: Impression: 1. Ascites, mesenteric stranding, and small amount of free air are relatively similar to prior examination and suggest element of bowel perforation. Discrete abscess cannot be excluded based on current examination. Partial bowel obstruction cannot be excluded although complete obstruction is less likely given the presumed passage of colonic contrast in comparison to prior examination. Associated enterocolitis cannot be excluded. 2. Mild right hydroureteronephrosis. 3. Mild bibasilar atelectasis (right greater than left ASSESSMENT AND PLAN: 46-year-old female admitted for severe abdominal pain. . An ultrasound-guided abscess drainage for the right-sided fluid was performed on 02/19/17. She report improvements in her symptom and mood. Cultures of the fluid are still pending. At this point management for patient includes pain cool , and encouraging the patient to ambulate to help fluid drainage today. She still has a abdominal draining tube in her right side. Diet has been changed to clear liquids with the instructions to sip slowly. I expect pt to continues improving both clinically and lab values. There is no current plan to do a left side abdominal fluid drainage. VS, I&O, 24H, Fishbone Vital Signs/I&O Vital Signs Date Time Temp Pulse Resp B/P (MAP) Pulse Ox O2 Delivery O2 Flow Rate FiO2 02/20/17 06:53 16 Room Air 02/20/17 06:00 98.0 94 123/72 (89) 100 I&O- Last 24 Hours up to 6 AM 02/21/17 06:00 Intake Total 0 ml Output Total 375 ml Balance -375 ml Laboratory Data 24H LABS Laboratory Tests 2 02/19/17 14:20: Magnesium Level 2.1 02/20/17 06:15: White Blood Count 9.8, Red Blood Count 3.52L, Hemoglobin 9.9L, Hematocrit 29.7L , Mean Corpuscular Volume 84.4, Mean Corpuscular Hemoglobin 28.1, Mean Corpuscular Hemoglobin Concent 33.3, Red Cell Distribution Width 14.5, Platelet Count 468H, Neutrophils (%) (Auto) 70.5H, Lymphocytes (%) (Auto) 18.9L, Monocytes (%) (Auto) 8.8H, Eosinophils (%) (Auto) 0.7, Basophils (%) (Auto) 0.3 , Neutrophils # (Auto) 6.9, Lymphocytes # (Auto) 1.9, Monocytes # (Auto) 0.9H, Eosinophils # (Auto) 0.1, Basophils # (Auto) 0.0, Immature Granulocyte # (Auto) 0.1H, Nucleated Red Blood Cells % (auto) 0.0, Anion Gap 9, Glomerular Filtration Rate > 60.0, Blood Urea Nitrogen 9, Creatinine 0.50L, Sodium Level 141, Potassium Level 3.1L, Chloride Level 108H, Carbon Dioxide Level 24, Calcium Level 8.0L CBC/BMP Laboratory Tests 02/20/17 06:15 Red Blood Count 3.52 L, Mean Corpuscular Volume 84.4, Mean Corpuscular Hemoglobin 28.1, Mean Corpuscular Hemoglobin Concent 33.3, Red Cell Distribution Width 14.5, Neutrophils (%) (Auto) 70.5 H, Lymphocytes (%) (Auto) 18.9 L, Monocytes (%) (Auto) 8.8 H, Eosinophils (%) (Auto) 0.7, Basophils (%) ( Auto) 0.3, Neutrophils # (Auto) 6.9, Lymphocytes # (Auto) 1.9, Monocytes # (Auto ) 0.9 H, Eosinophils # (Auto) 0.1, Basophils # (Auto) 0.0, Calcium Level 8.0 L Microbiology Microbiology 02/16/17 Blood Culture - Preliminary, Resulted No Growth after 72 hours. All specime... 02/16/17 Blood Culture - Preliminary, Resulted No Growth after 72 hours. All specime... 02/14/17 Blood Culture - Final, Complete NO GROWTH AFTER 5 DAYS 02/13/17 Blood Culture - Final, Complete NO GROWTH AFTER 5 DAYS 02/19/17 Gram Stain - Final, Resulted 02/19/17 Body Fluid Culture, Resulted Pending 02/19/17 Anaerobic Culture, Resulted Pending 02/17/17 Gastrointestinal Tract Panel (PCR) - Final, Complete Clostridium Difficile A/B GME ATTESTATION GME ATTESTATION My preceptor for this patient encounter was physically present in the building during the encounter and was fully available. As needed, all aspects of the patient interview, examination, medical decision making process, and medical care plan development were reviewed and approved by the preceptor. Preceptor is aware and concurs with the plan as stated in the body of this note and will attest to such by his/her cosignature. SCAR DEVI DO Feb 20, 2017 13:25
[2017-02-20 14:00] VITALS: BP 118/64
--- NOTE | 2017-02-20 17:09 | IPN ---
DATE: 02/20/2017 Fran seems to be doing much better. She is tolerating clear fluids. Her abdominal pain has markedly decreased. She is excited that she has not needed any narcotics today. She has been afebrile for over 24 hours. Her last temperature was on 02/18/2017. She had an abdominal drainage ultrasound, 10 mL of gray fluid were collected and sent to the lab. She has a drain in place and it has drained at least over 1000 mL. The patient feels the bloating has markedly diminished. LABORATORY DATA: White count is 9.8, hemoglobin 9.9, hematocrit 29.7, platelets 468, 70% neutrophils, 90% lymphocytes, 8% monocytes. No eosinophils identified. Sodium 141, potassium 3.1, chloride 108, bicarbonate 24, BUN 9, creatinine 0.5, glucose 108, calcium 8, CRP was 31.2 48 hours ago, currently 23.1. Fluid had few epithelial cells, many white cells, no organisms seen. Aerobic and anaerobic cultures are still pending. Intake and output: The patient had about three bowel movements that are greenish in the past 24 hours. She states they are not diarrheal. IMPRESSION: 1. Bowel perforation with ascites, possible intra-abdominal abscess. Culture is still pending. Currently on IV Cipro and Flagyl, doing much better. 2. Clostridium (C) difficile on stool testing but the patient never had diarrhea and this most likely is colonization. PLAN: Continue IV Cipro and Flagyl. Reglan as needed. Will continue to monitor for any further infection. Repeat CRP in the next 48 hours and CBC.
[2017-02-20 22:00] VITALS: BP 116/67
[2017-02-21] MEDS: METOCLOPRAMIDE INJ 10MG/2ML VIAL (J2765) IV SCH ×4 (00:12→18:25)
[2017-02-21] MEDS: CIPROFLOXACIN 400 MG in APPROPRIATE DILUENT 1 EA IV SCH ×2 (00:13→12:56)
[2017-02-21] MEDS: POTASSIUM CHLORIDE INJ 10 MEQ in NS 1,000 ML IV SCH ×3 (00:32→18:26)
[2017-02-21] MEDS: metroNIDAZOLE 500 MG in APPROPRIATE DILUENT 1 EA IV SCH ×3 (05:36→21:28)
[2017-02-21 06:00] VITALS: BP 123/74
[2017-02-21 06:21] LABS: MEAN CORPUSCULAR HGB CONC 33.8 g/dl (32.0-36.5); MEAN CORPUSCULAR VOLUME 82.7 fl (80.0-96.0); RED CELL DISTRIBUTION WIDTH 14.4 % (11.5-14.5); WHITE BLOOD COUNT 12.2 10^3/uL (4.0-10.0)
[2017-02-21 06:40] LABS: ANION GAP 9 MEQ/L (8-16); BLOOD UREA NITROGEN 5 MG/DL (7-18); CARBON DIOXIDE LEVEL 25 MEQ/L (21-32); CHLORIDE LEVEL 105 MEQ/L (98-107); GLOMERULAR FILTRATION RATE > 60.0 (>58); GLUCOSE, FASTING 123 MG/DL (70-105); POTASSIUM SERUM 2.8 MEQ/L (3.5-5.1); SODIUM LEVEL 139 MEQ/L (136-145)
[2017-02-21] MEDS ORDERED: POTASSIUM CHLORIDE 10 MEQ SR TABLET PO ONE ×3 (07:00→12:00)
[2017-02-21 08:27] LABS: MAGNESIUM LEVEL 1.9 MG/DL (1.8-2.4)
[2017-02-21] MEDS: SENOKOT S TAB PO SCH (09:00)
--- NOTE | 2017-02-21 09:18 | IPNPDOC ---
Date Seen The patient was seen on 02/21/17. Progress Note SUBJECTIVE: Patient is a 46-year-old female admitted for abdominal pain. Surgery was consulted on 02/15/2017, because CT revealed small bowel wall thickening with surrounding inflammation and moderate ascites involving the majority of the jejunum and ileum. She has since had a second CT on 02/16/17. The second CT showed moderate scattered free intraperitoneal air. With moderate abdominal and pelvic ascites. It also showed persistent thickened small bowel loops. Day 2 of patient having an abdominal fluid drainage bag. There was about 50 ml of fluid collected overnight. Pt was started on liquid diet yesterday. She complained about nausea and lower crampy abdominal pain. She is still having bowel movement and is ambulatory. OBJECTIVE PHYSICAL EXAMINATION: VITAL SIGNS: Please see below. GENERAL: Alert, resting comfortably on bed with knees up CARDIOVASCULAR: S1 and S2 are present, no murmurs, no rubs, no gallops RESPIRATORY: Lungs are clear to auscultate anteriorly and bilaterally. ABDOMINAL: Slightly distended abdomen, improved from previous exam. Continued abscess drainage from her right abdomen. Tender to palpate on lower quadrant of abdomen. EXTREMITIES: No deformities, no swelling, no bruising LABORATORY DATA: Please see below. MICROBIOLOGY: Please see below. IMAGING: Abdominal CT on 02/13/2017: Diffuse small bowel wall thickening with surrounding inflammation and moderate amount of ascites the majority of the jejunum and ileum. No focal site of obstruction is seen. Differential diagnosis includes colitis versus inflammatory bowel disease such as Crohn's disease. Abdominal CT on 02/16/2017:Moderate scattered free intraperitoneal air. Moderate abdominal and pelvic ascites. Persistent thickened small bowel loops Abdominal CT on 02/18/17: Impression: 1. Ascites, mesenteric stranding, and small amount of free air are relatively similar to prior examination and suggest element of bowel perforation. Discrete abscess cannot be excluded based on current examination. Partial bowel obstruction cannot be excluded although complete obstruction is less likely given the presumed passage of colonic contrast in comparison to prior examination. Associated enterocolitis cannot be excluded. 2. Mild right hydroureteronephrosis. 3. Mild bibasilar atelectasis (right greater than left ASSESSMENT AND PLAN: 46-year-old female admitted for severe abdominal pain. . An ultrasound-guided abscess drainage for the right-sided fluid was performed on 02/19/17. The abdominal fluid had many WBC, few epithelial cells and on organism. Dr. Cash was consulted for her increase WBC, she started her on antiobics. At this point management for patient includes pain cool, and encouraging the patient to ambulate to help fluid drainage today. She still has a abdominal draining tube in her right side. Tentative plan is to remove the tube on friday. Patient is currently on a clear liquid diet, and is tolerating that well. There is no current plan to do a left side abdominal fluid drainage. VS, I&O, 24H, Fishbone Vital Signs/I&O Vital Signs Date Time Temp Pulse Resp B/P (MAP) Pulse Ox O2 Delivery O2 Flow Rate FiO2 02/21/17 06:00 98.6 96 18 123/74 (90) 97 02/20/17 14:00 Room Air I&O- Last 24 Hours up to 6 AM 02/22/17 06:00 Intake Total 100 ml Output Total 0 ml Balance 100 ml Laboratory Data 24H LABS Laboratory Tests 2 02/21/17 05:42: Anion Gap 9, Glomerular Filtration Rate > 60.0, Blood Urea Nitrogen 5L, Creatinine 0.40L, Sodium Level 139, Potassium Level 2.8*L, Chloride Level 105, Carbon Dioxide Level 25, Calcium Level 8.0L, Magnesium Level 1.9 CBC/BMP Laboratory Tests 02/21/17 05:42 Red Blood Count 3.47 L, Mean Corpuscular Volume 82.7, Mean Corpuscular Hemoglobin 28.0, Mean Corpuscular Hemoglobin Concent 33.8, Red Cell Distribution Width 14.4, Calcium Level 8.0 L Microbiology Microbiology 02/16/17 Blood Culture - Preliminary, Resulted No Growth after 72 hours. All specime... 02/16/17 Blood Culture - Preliminary, Resulted No Growth after 72 hours. All specime... 02/14/17 Blood Culture - Final, Complete NO GROWTH AFTER 5 DAYS 02/13/17 Blood Culture - Final, Complete NO GROWTH AFTER 5 DAYS 02/19/17 Gram Stain - Final, Complete 02/19/17 Body Fluid Culture - Final, Complete 02/19/17 Anaerobic Culture - Final, Complete 02/17/17 Gastrointestinal Tract Panel (PCR) - Final, Complete Clostridium Difficile A/B GME ATTESTATION GME ATTESTATION My preceptor for this patient encounter was physically present in the building during the encounter and was fully available. As needed, all aspects of the patient interview, examination, medical decision making process, and medical care plan development were reviewed and approved by the preceptor. Preceptor is aware and concurs with the plan as stated in the body of this note and will attest to such by his/her cosignature. SCAR DEVI DO Feb 21, 2017 09:18
[2017-02-21] MEDS: MESALAMINE 250 MG CR CAP PO SCH ×4 (09:19→21:27)
[2017-02-21] MEDS: ENOXAPARIN 40 MG/0.4 ML SYRINGE (J1650) SC SCH (09:20)
[2017-02-21] MEDS: PANTOPRAZOLE 40MG INJ (PROTONIX) (C9113) IV SCH ×2 (09:20→21:28)
--- NOTE | 2017-02-21 09:29 | IPNPDOC ---
Date Seen The patient was seen on 02/21/17. Progress Note SUBJECTIVE: Patient is a 46-year-old female with abdominal pain. Patient is evaluated at bedside this morning. She is initially sitting on the edge of the bed, but eventually returns to the somewhat supine position. Patient is evaluated by general surgery and hospitalist during my evaluation. Patient reports an isolated right-sided chest pain that is exacerbated by right arm abduction and external rotation. Pain does not radiate or cause diaphoresis. Patient has remained afebrile over the last 24 hours. Patient feels as though she is more bloated across her abdomen and admits to midline abdominal pain and pain around the incision site where the drain is placed. The drain has put out a total of 1235mL of fluid. The receptacle contains a small amount of serosanguineous fluid. The patient states that she ambulated quite a bit yesterday and has ambulated some this morning. However, patient does not feel well enough to ambulate any more at this time. Patient also reports 3-4 green liquid bowel movements over the last 24 hours. She states that the bowel movements are the same color as her vomit was previously. She remains on Ciprofloxacin and Flagyl. Previous assessment of her stool for Clostridium difficile was positive; however, patient had received a bowel regimen and the result was likely not accurate. Patient has not received any bowel regimen medications over the last 24 hours. Patient continues to remains somewhat nauseated without vomiting. Has associated some of the pain medication she has been receiving with feelings of nausea. CRP has trended down over the last 24 hours. OBJECTIVE PHYSICAL EXAMINATION: VITAL SIGNS: Please see below. GENERAL: Somewhat tearful and emotional female, well nourished, well developed, appears to be uncomfortable HEENT: Atraumatic, normocephalic, PERRL, EOMI, oral mucosa appears pink and moist, nasal septum appears midline, nares are patent CARDIOVASCULAR: Regular rate and rhythm, normal S1 and S2, no murmur, rub, click RESPIRATORY: Clear to auscultation bilaterally, adequate inspiratory and expiratory airway excursion, no wheeze, rhonchi, crackles ABDOMINAL: Somewhat distended, non-tender during distraction, 4x4 bandaged area on the right lower quadrant with a drainage tubing and receptacle attached; receptacle contains a small amount of serosanguineous fluid, area appear clean, dry, intact, abdomen in tympanic throughout, bowel sounds appreciated in the left upper quadrant, diminished elsewhere EXTREMITIES: Peripheral pulses appreciated in upper and lower extremities, equal , symmetrical, +2, without edema NEUROLOGICAL: CN II-XII grossly intact PSYCHOLOGICAL: Alert and conversant, somewhat tearful and emotional LABORATORY DATA: Please see below. MICROBIOLOGY: Please see below. DVT prophylaxis ordered?: Lovenox 40mg SC daily. ASSESSMENT AND PLAN: This is a 46-year-old female with abdominal pain. PROBLEMS: 1. Leukocytosis: Unclear etiology at this time. No fever. 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 Obtaining immunoglobulins M, G, A, E. Obtaining fungal/AFB smear and culture on drainage fluid along with a cell count. Also obtaining a B12 level. 2. Abdominal pain with small bowel inflammation, perforation, and partial small bowel obstruction: Right-sided abscess drain has been placed and has drained 1235mL since 02/19/2017. Gram stain of fluid shows many WBC, but no organisms. Awaiting culture. Continue with Ciprofloxacin and Flagyl. Patient is on a clear liquid diet. Likely contributing to abdominal pain and nausea. Continue with Mesalamine and Zofran. Patient has pain medications available. 3. Diarrhea: Patient has not received any bowel regimen medications over the last 24 hours. According to patient stool is a liquid green color similar in color and consistency of her vomitus. A prior Clostridium difficile was positive, but was likely not accurate secondary to patient receiving bowel regimen medications prior to bowel movement that produced positive C. diff. Patient did receive a CT with contrast on 02/19/17. Patient has also been on a clear liquid diet. DISPOSITION: Continue with IV antibiotics. Diarrhea possibly related to contrast given on 02/19/17 and increase in diet. Will hold off further testing at this time. Obtain immunoglobin levels, B12 level, fluid cell count, fungal smear and culture on fluid, and AFB smear and culture on fluid. VS, I&O, 24H, Fishbone Vital Signs/I&O Vital Signs Date Time Temp Pulse Resp B/P (MAP) Pulse Ox O2 Delivery O2 Flow Rate FiO2 02/21/17 06:00 98.6 96 18 123/74 (90) 97 02/20/17 14:00 Room Air I&O- Last 24 Hours up to 6 AM 02/22/17 06:00 Intake Total 100 ml Output Total 0 ml Balance 100 ml Laboratory Data 24H LABS Laboratory Tests 2 02/21/17 05:42: Anion Gap 9, Glomerular Filtration Rate > 60.0, Blood Urea Nitrogen 5L, Creatinine 0.40L, Sodium Level 139, Potassium Level 2.8*L, Chloride Level 105, Carbon Dioxide Level 25, Calcium Level 8.0L, Magnesium Level 1.9 CBC/BMP Laboratory Tests 02/21/17 05:42 Red Blood Count 3.47 L, Mean Corpuscular Volume 82.7, Mean Corpuscular Hemoglobin 28.0, Mean Corpuscular Hemoglobin Concent 33.8, Red Cell Distribution Width 14.4, Calcium Level 8.0 L Microbiology Microbiology 02/16/17 Blood Culture - Preliminary, Resulted No Growth after 72 hours. All specime... 02/16/17 Blood Culture - Preliminary, Resulted No Growth after 72 hours. All specime... 02/14/17 Blood Culture - Final, Complete NO GROWTH AFTER 5 DAYS 02/13/17 Blood Culture - Final, Complete NO GROWTH AFTER 5 DAYS 02/19/17 Gram Stain - Final, Resulted 02/19/17 Body Fluid Culture, Resulted Pending 02/19/17 Anaerobic Culture, Resulted Pending 02/17/17 Gastrointestinal Tract Panel (PCR) - Final, Complete Clostridium Difficile A/B ROQUE CORBIN Feb 21, 2017 09:29
[2017-02-21] MEDS: ONDANSETRON 4MG/2ML VIAL (J2405) IV PRN (10:04)
--- NOTE | 2017-02-21 10:24 | IPNPDOC ---
Subjective Date Seen The patient was seen on 02/21/17. Subjective Chief Complaint/HPI The patient is a 46-year-old female admitted with a reason for visit of Abdominal Pain. Events since last encounter Patient was seen by Dr. Cummings yesterday, who feels that the patient has improved , would like to continue Cipro, Flagyl, and nausea medication. Dr. Cummings would like a CRP and CBC in the next 48 hours. Surgery is monitoring abdominal drainage (which has been slowing down since first placed; so far 1235 mL fluid drained) and will continue with clear liquid diet. Patient is not feeling much better today, and is clearly frustrated about the situation (began crying when discussing more time in the hospital). She states that she is coke still cleaner in her abdomen all over, with crampy pain and flatus since drinking carbonated liquids. She still feels bloated. Patient has not taken pain medicine since 02/19, stating that it makes her nauseous. Since stopping the Hamilton, she has been using nausea medicine less (Reglan this morning , Zofran last on 02/20, Phenergan last on 02/19). Patient has been afebrile since 02/18, and denies feeling feverish. Constitutional: Denies: Fever ENT: Denies: Head Aches Pulmonary: Denies: Dyspnea, Cough Cardiovascular: Reports: Chest Pain (Burning pain in center of chest when she sits forward, started this morning), Palpitations (Since hospitalization) Gastrointestinal: Reports: Nausea (Improving since she stopped pain medication , not resolved), Abdominal Pain, Denies: Vomiting, Diarrhea, Constipation Genitourinary: Denies: Dysuria, Frequency, Incontinence Objective Physical Examination General Exam: Positive: Cooperative (Patient appears frustrated and begins crying during exam) Chest Exam: Positive: Clear to auscultation, Normal air movement, Negative: Rales, Rhonchi, Wheezing, Diminished, Other Heart Exam: Positive: Rate Normal (Rate has intermittently dropped into 90s yesterday and today, was tachycardic), Regular Rhythm, Normal S1, Normal S2, Negative: Tachycardic, Bradycardic, Irregular Rhythm, Gallops, Murmurs, Rubs , Other Abdomen Exam: Positive: BS Hypoactive (More active in LUQ and LLQ; patient has been drinking carbonated soda), Soft, Tenderness (Generalized), Negative: Normal bowel sounds Assessment /Plan Assessment 1. Abdomen pain with bowel inflammation and edema. Patient is getting Cipro and Flagyl empirically for bowel perforation. She continues to drain serosanguineous fluid from right side, which is slowing down. Surgery is monitoring this, as well as diet, and will continue with clear diets. Patient has experienced some cramping pain and flatus, likely related to the carbonated drinks that she has been getting. We appreciate continued guidance from surgery. 2. Bowel perforation with ascites. See above. 3. Hypokalemia. Patient had potassium level of 2.8 this morning, received supplementation. Will keep monitoring potassium at 12. 4. Fever. Patient has been afebrile for the last 24 hour. We will continue to have Acetaminophen on board and continue to monitor temperature. 6. Nausea with vomiting. Last episode of emesis was 02/18. Patient stopped taking Hamilton, which she felt made her nausea worse. So far, patient reports improved nausea, with Phenergan last taken on 02/19, Zofran on 02/20, and Reglan this morning. Will continue to monitor nausea and have Zofran, Reglan, and Phenergan on board for worsening of symptoms. 7. 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 Laxatives have been on hold and we will not treat for C. difficile. Patient was likely colonized in hospital. 8. Eosinophilia has resolved at this time. Patient might have continue outpatient work up on this with Dr. Cummings once discharged. Plan/VTE VTE Prophylaxis Ordered?: Yes VS, I&O, 24H, Fishbone Vital Signs/I&O Vital Signs Date Time Temp Pulse Resp B/P (MAP) Pulse Ox O2 Delivery O2 Flow Rate FiO2 02/21/17 06:00 98.6 96 18 123/74 (90) 97 02/20/17 14:00 Room Air I&O- Last 24 Hours up to 6 AM 02/22/17 06:00 Intake Total 100 ml Output Total 0 ml Balance 100 ml Laboratory Data 24H LABS Laboratory Tests 2 02/21/17 05:42: Anion Gap 9, Glomerular Filtration Rate > 60.0, Blood Urea Nitrogen 5L, Creatinine 0.40L, Sodium Level 139, Potassium Level 2.8*L, Chloride Level 105, Carbon Dioxide Level 25, Calcium Level 8.0L, Magnesium Level 1.9 CBC/BMP Laboratory Tests 02/21/17 05:42 Red Blood Count 3.47 L, Mean Corpuscular Volume 82.7, Mean Corpuscular Hemoglobin 28.0, Mean Corpuscular Hemoglobin Concent 33.8, Red Cell Distribution Width 14.4, Calcium Level 8.0 L Microbiology Microbiology 02/16/17 Blood Culture - Preliminary, Resulted No Growth after 72 hours. All specime... 02/16/17 Blood Culture - Preliminary, Resulted No Growth after 72 hours. All specime... 02/14/17 Blood Culture - Final, Complete NO GROWTH AFTER 5 DAYS 02/13/17 Blood Culture - Final, Complete NO GROWTH AFTER 5 DAYS 02/19/17 Gram Stain - Final, Complete 02/19/17 Body Fluid Culture - Final, Complete 02/19/17 Anaerobic Culture - Final, Complete 02/17/17 Gastrointestinal Tract Panel (PCR) - Final, Complete Clostridium Difficile A/B GME ATTESTATION GME ATTESTATION My preceptor for this patient encounter was physically present in the building during the encounter and was fully available. As needed, all aspects of the patient interview, examination, medical decision making process, and medical care plan development were reviewed and approved by the preceptor. Preceptor is aware and concurs with the plan as stated in the body of this note and will attest to such by his/her cosignature. ALIE BULLARD DO Feb 21, 2017 10:07
[2017-02-21 12:49] LABS: IMMUNOGLOBULIN G 896 MG/DL (681-1648); IMMUNOGLOBULIN M 145 MG/DL (40-230)
[2017-02-21 12:50] LABS: VITAMIN B12 LEVEL > 2000 PG/ML (247-911)
[2017-02-21 14:00] VITALS: BP 124/71
[2017-02-21 14:01] LABS: ANION GAP 8 MEQ/L (8-16); BLOOD UREA NITROGEN 4 MG/DL (7-18); CALCIUM LEVEL 8.3 MG/DL (8.5-10.1); CARBON DIOXIDE LEVEL 26 MEQ/L (21-32); CHLORIDE LEVEL 107 MEQ/L (98-107); CREATININE FOR GFR 0.44 MG/DL (0.55-1.02); GLOMERULAR FILTRATION RATE > 60.0 (>58); GLUCOSE, FASTING 113 MG/DL (70-105); POTASSIUM SERUM 3.7 MEQ/L (3.5-5.1); SODIUM LEVEL 141 MEQ/L (136-145)
[2017-02-21 22:00] VITALS: BP 122/75
[2017-02-22] MEDS: METOCLOPRAMIDE INJ 10MG/2ML VIAL (J2765) IV SCH ×4 (00:42→18:45)
[2017-02-22] MEDS: POTASSIUM CHLORIDE INJ 10 MEQ in NS 1,000 ML IV SCH ×2 (01:41→10:04)
[2017-02-22] MEDS: metroNIDAZOLE 500 MG in APPROPRIATE DILUENT 1 EA IV SCH ×3 (05:49→22:03)
[2017-02-22 06:00] VITALS: BP 121/63
[2017-02-22 06:16] LABS: MEAN CORPUSCULAR HEMOGLOBIN 28.6 pg (27.0-33.0); MEAN CORPUSCULAR HGB CONC 33.9 g/dl (32.0-36.5); MEAN CORPUSCULAR VOLUME 84.2 fl (80.0-96.0); RED CELL DISTRIBUTION WIDTH 14.3 % (11.5-14.5); WHITE BLOOD COUNT 12.1 10^3/uL (4.0-10.0)
[2017-02-22 06:41] LABS: ANION GAP 9 MEQ/L (8-16); BLOOD UREA NITROGEN 3 MG/DL (7-18); CALCIUM LEVEL 7.9 MG/DL (8.5-10.1); CARBON DIOXIDE LEVEL 26 MEQ/L (21-32); CHLORIDE LEVEL 105 MEQ/L (98-107); CREATININE FOR GFR 0.46 MG/DL (0.55-1.02); GLOMERULAR FILTRATION RATE > 60.0 (>58); GLUCOSE, FASTING 105 MG/DL (70-105); POTASSIUM SERUM 3.1 MEQ/L (3.5-5.1); SODIUM LEVEL 140 MEQ/L (136-145)
[2017-02-22] MEDS ORDERED: POTASSIUM CHLORIDE 10 MEQ SR TABLET PO ONE (09:00)
[2017-02-22] MEDS: PANTOPRAZOLE 40MG INJ (PROTONIX) (C9113) IV SCH ×2 (09:31→22:03)
[2017-02-22] MEDS: ENOXAPARIN 40 MG/0.4 ML SYRINGE (J1650) SC SCH (09:34)
[2017-02-22] MEDS: ONDANSETRON 4MG/2ML VIAL (J2405) IV PRN ×2 (09:35→17:16)
[2017-02-22] MEDS: MESALAMINE 250 MG CR CAP PO SCH ×4 (09:35→22:04)
--- NOTE | 2017-02-22 10:17 | IPNPDOC ---
Subjective Date Seen The patient was seen on 02/22/17. Subjective Chief Complaint/HPI The patient is a 46-year-old female admitted with a reason for visit of Abdominal Pain. Events since last encounter Patient was seen this morning at her bedside. She states she is feel better this AM since yesterday. Would like to know if she can change her diet, she is tolerating her clear liquids well. The patient has been ambulating around the floor with ease. The patient has been afebrile for the last 48 hours. No overnight events reported. General: Reports: Normal Appetite, Denies: Chills, Night Sweats, Fatigue, Malaise Eyes: Denies: Pain, Vision change ENT: Denies: Dysphagia, Sore Throat Skin: Denies: Rash, Lesions, Bruising Pulmonary: Denies: Dyspnea, Cough Cardiovascular: Denies: Chest Pain, Palpitations, Edema, Lt Headedness Gastrointestinal: Reports: Abdominal Pain, Denies: Nausea, Vomiting, Diarrhea, Constipation Genitourinary: Denies: Dysuria, Frequency, Incontinence, Hematuria, Retention Hematologic: Denies: Bruising, Bleeding Excessively Endocrine: Denies: Polydipsia, Polyphagia, Polyuria Musculoskeletal: Denies: Neck Pain, Back Pain, Joint Pain, Muscle Pain, Spasms Neurological: Denies: Weakness, Numbness, Change in speech, Confusion Psych: Reports: Mood Normal, Denies: Depression, Memory Issues Objective Physical Examination General Exam: Positive: Cooperative (Patient appears frustrated and begins crying during exam) Eye Exam: Positive: PERRLA, Conjunctiva & lids normal, EOMI, Negative: Sclera icteric ENT Exam: Positive: Atraumatic, Mucous membr. moist/pink, Pharynx Normal Neck Exam: Positive: Supple, JVD, Negative: thyromegaly Chest Exam: Positive: Clear to auscultation, Normal air movement, Negative: Rales, Rhonchi, Wheezing, Diminished, Other Heart Exam: Positive: Rate Normal (Rate has intermittently dropped into 90s yesterday and today, was tachycardic), Regular Rhythm, Normal S1, Normal S2, Negative: Tachycardic, Bradycardic, Irregular Rhythm, Gallops, Murmurs, Rubs , Other Telemetry: Positive: No significant arrhythmia Abdomen Exam: Positive: BS Hypoactive (More active in LUQ and LLQ; patient has been drinking carbonated soda), Soft, Tenderness (Generalized), Negative: Normal bowel sounds Extremity Exam: Positive: Normal pulses, Negative: Clubbing, Cyanosis, Edema, Swelling Skin Exam: Positive: Nl turgor and temperature, Negative: Rash, Breakdown Neuro Exam: Positive: Normal Gait, Normal Speech, Sensation Intact, Cranial Nerves 3-12 NL, Reflexes 2+ Psych Exam: Positive: Mental status NL, Mood NL, Oriented x 3 Assessment /Plan Assessment 1. Abdomen pain with bowel inflammation and edema. (Improving) Patient is getting Cipro and Flagyl empirically for bowel perforation. She continues to drain serosanguineous fluid from right side, which is slowing down. Surgery has advanced her diet to mechanical soft diet.We appreciate continued guidance from surgery. 2. Bowel perforation with ascites. (Resolving). Abscess fluids were negative for gram stains, fluid cultures and anaerobic cultures. ID is on board has ordered labs for immunoglobin levels which IgE was slightly elevated. Will wait for ID recommendations on this. Patient might need outpatient follow up if the patient continues to improves symptoms. 3. Hypokalemia. Patient had potassium level of 3.1 this morning, received supplementation. Will recheck in the AM. 4. Fever. Patient has been afebrile for the last 48 hour. We will continue to have Acetaminophen on board and continue to monitor temperature. 6. Nausea with vomiting. Last episode of emesis was 02/18. Will continue to monitor nausea and have Zofran, Reglan, and Phenergan on board for worsening of symptoms. 7. 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 Laxatives have been on hold and we will not treat for C. difficile. Patient was likely colonized in hospital. Plan/VTE VTE Prophylaxis Ordered?: Yes VS, I&O, 24H, Fishbone Vital Signs/I&O Vital Signs Date Time Temp Pulse Resp B/P (MAP) Pulse Ox O2 Delivery O2 Flow Rate FiO2 02/22/17 06:00 98.7 66 16 121/63 (82) 96 02/21/17 21:00 Room Air I&O- Last 24 Hours up to 6 AM 02/23/17 06:00 Intake Total 0 ml Output Total 0 ml Balance 0 ml Laboratory Data 24H LABS Laboratory Tests 2 02/21/17 11:37: Vitamin B12 Level > 2000H, Immunoglobulin G (Chem) 896, Immunoglobulin A 209.0, Immunoglobulin M 145, Immunoglobulin E 144.0H 02/21/17 12:40: 02/21/17 13:11: Anion Gap 8, Glomerular Filtration Rate > 60.0, Blood Urea Nitrogen 4L, Creatinine 0.44L, Sodium Level 141, Potassium Level 3.7#, Chloride Level 107, Carbon Dioxide Level 26, Calcium Level 8.3L 02/21/17 13:16: 02/22/17 05:24: Anion Gap 9, Glomerular Filtration Rate > 60.0, Blood Urea Nitrogen 3L, Creatinine 0.46L, Sodium Level 140, Potassium Level 3.1L, Chloride Level 105, Carbon Dioxide Level 26, Calcium Level 7.9L, C-Reactive Protein, Quantitative 12.10H CBC/BMP Laboratory Tests 02/21/17 13:11 Calcium Level 8.3 L 02/22/17 05:24 Calcium Level 7.9 L, Red Blood Count 3.22 L, Mean Corpuscular Volume 84.2, Mean Corpuscular Hemoglobin 28.6, Mean Corpuscular Hemoglobin Concent 33.9, Red Cell Distribution Width 14.3 Microbiology Microbiology 02/16/17 Blood Culture - Final, Complete NO GROWTH AFTER 5 DAYS 02/16/17 Blood Culture - Final, Complete NO GROWTH AFTER 5 DAYS 02/14/17 Blood Culture - Final, Complete NO GROWTH AFTER 5 DAYS 02/13/17 Blood Culture - Final, Complete NO GROWTH AFTER 5 DAYS 02/19/17 Gram Stain - Final, Complete 02/19/17 Body Fluid Culture - Final, Complete 02/19/17 Anaerobic Culture - Final, Complete 02/17/17 Gastrointestinal Tract Panel (PCR) - Final, Complete Clostridium Difficile A/B GME ATTESTATION GME ATTESTATION My preceptor for this patient encounter was physically present in the building during the encounter and was fully available. As needed, all aspects of the patient interview, examination, medical decision making process, and medical care plan development were reviewed and approved by the preceptor. Preceptor is aware and concurs with the plan as stated in the body of this note and will attest to such by his/her cosignature. ALIE BULLARD DO Feb 22, 2017 10:17
[2017-02-22] MEDS: CIPROFLOXACIN 400 MG in APPROPRIATE DILUENT 1 EA IV SCH ×3 (12:10)
[2017-02-22 14:00] VITALS: BP 119/63
[2017-02-22 22:00] VITALS: BP 105/57
[2017-02-23] MEDS: METOCLOPRAMIDE INJ 10MG/2ML VIAL (J2765) IV SCH ×2 (00:16→05:58)
[2017-02-23] MEDS: CIPROFLOXACIN 400 MG in APPROPRIATE DILUENT 1 EA IV SCH (00:17)
[2017-02-23 05:56] LABS: MEAN CORPUSCULAR HEMOGLOBIN 27.7 pg (27.0-33.0); MEAN CORPUSCULAR HGB CONC 32.7 g/dl (32.0-36.5); MEAN CORPUSCULAR VOLUME 84.8 fl (80.0-96.0); RED CELL DISTRIBUTION WIDTH 14.5 % (11.5-14.5); WHITE BLOOD COUNT 12.2 10^3/uL (4.0-10.0)
[2017-02-23] MEDS: metroNIDAZOLE 500 MG in APPROPRIATE DILUENT 1 EA IV SCH (05:58)
[2017-02-23 06:00] VITALS: BP 113/56
[2017-02-23 06:16] LABS: ANION GAP 6 MEQ/L (8-16); BLOOD UREA NITROGEN 4 MG/DL (7-18); CALCIUM LEVEL 7.9 MG/DL (8.5-10.1); CARBON DIOXIDE LEVEL 29 MEQ/L (21-32); CHLORIDE LEVEL 105 MEQ/L (98-107); CREATININE FOR GFR 0.54 MG/DL (0.55-1.02); GLOMERULAR FILTRATION RATE > 60.0 (>58); GLUCOSE, FASTING 105 MG/DL (70-105); POTASSIUM SERUM 3.5 MEQ/L (3.5-5.1); SODIUM LEVEL 140 MEQ/L (136-145)
[2017-02-23] MEDS: MESALAMINE 250 MG CR CAP PO SCH ×4 (09:46→21:14)
[2017-02-23] MEDS: ENOXAPARIN 40 MG/0.4 ML SYRINGE (J1650) SC SCH (09:46)
[2017-02-23] MEDS: PANTOPRAZOLE 40MG INJ (PROTONIX) (C9113) IV SCH (09:46)
[2017-02-23] MEDS: CIPROFLOXACIN 500 MG TAB PO SCH ×2 (11:25→17:37)
--- NOTE | 2017-02-23 11:59 | IPNPDOC ---
Date Seen The patient was seen on 02/23/17. Progress Note SUBJECTIVE: Patient is a pleasant 46-year-old female seen at bedside. Her is present as well as her family. She is tolerating her meals. She is getting out walking the hallways frequently. She denies chest pain, shortness of breath, nausea, vomiting. Feels her abdominal pain is substantially improved. And was told by surgery this morning that she'll likely be ready for home discharge tomorrow. OBJECTIVE PHYSICAL EXAMINATION: VITAL SIGNS: Please see below. GENERAL: [No acute distress, alert, oriented 3] HEENT: [PERRLA. Throat clear. Neck supple, no adenopathy] CARDIOVASCULAR: [Regular rate and rhythm]. RESPIRATORY: [Clear to all station bilaterally]. ABDOMINAL: [Soft, anteroseptal positive bowel sounds, masses or rebound. Drain remains patent with very little serous drainage this time.] EXTREMITIES: [No edema, no calf tenderness] NEUROLOGICAL: [Cranial nerves II through XII grossly intact] PSYCHOLOGICAL: [Negative] LABORATORY DATA: Please see below. MICROBIOLOGY: Please see below. DVT prophylaxis ordered?: [Yes] ASSESSMENT AND PLAN: This is a 46-year-old female with suspected microscopic bowel perforation, possibly related gastritis has done well on current antibiotics. Drain, which is likely to be pulled tomorrow and suspect she'll be ready for home discharge tomorrow. PROBLEMS: 1. Abdomen pain with bowel inflammation and edema: Tolerating advanced diet/ regular diet. We'll switch her to by mouth Cipro and Flagyl today. And her drain will be removed tomorrow. Anticipate home discharge. 2. Bowel perforation with ascites: (Resolving). Abscess fluids were negative for gram stains, fluid cultures and anaerobic cultures. Clinically doing well. Anticipate home. Discharge tomorrow with outpatient follow-up. 3. Hypokalemia: Resolved 4. Fever: Resolved. 6. Nausea with vomiting: Resolved. 7. 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 Laxatives have been on hold and we will not treat for C. difficile. Patient was likely colonized in hospital. 8. DVT prophylaxis: Lovenox. Disposition: She does well, remains afebrile with normalizing white count, tolerating meals. She'll likely be discharged home tomorrow. VS, I&O, 24H, Fishbone Vital Signs/I&O Vital Signs Date Time Temp Pulse Resp B/P (MAP) Pulse Ox O2 Delivery O2 Flow Rate FiO2 02/23/17 09:00 Room Air 02/23/17 06:00 98.1 90 17 113/56 (87) 98 I&O- Last 24 Hours up to 6 AM 02/24/17 06:00 Intake Total 220 ml Output Total 38 ml Balance 182 ml Laboratory Data 24H LABS Laboratory Tests 2 02/23/17 05:18: Anion Gap 6L, Glomerular Filtration Rate > 60.0, Blood Urea Nitrogen 4L, Creatinine 0.54L, Sodium Level 140, Potassium Level 3.5, Chloride Level 105, Carbon Dioxide Level 29, Calcium Level 7.9L CBC/BMP Laboratory Tests 02/23/17 05:18 Red Blood Count 3.28 L, Mean Corpuscular Volume 84.8, Mean Corpuscular Hemoglobin 27.7, Mean Corpuscular Hemoglobin Concent 32.7, Red Cell Distribution Width 14.5, Calcium Level 7.9 L Microbiology Microbiology 02/16/17 Blood Culture - Final, Complete NO GROWTH AFTER 5 DAYS 02/16/17 Blood Culture - Final, Complete NO GROWTH AFTER 5 DAYS 02/14/17 Blood Culture - Final, Complete NO GROWTH AFTER 5 DAYS 02/13/17 Blood Culture - Final, Complete NO GROWTH AFTER 5 DAYS 02/19/17 Gram Stain - Final, Complete 02/19/17 Body Fluid Culture - Final, Complete 02/19/17 Anaerobic Culture - Final, Complete 02/17/17 Gastrointestinal Tract Panel (PCR) - Final, Complete Clostridium Difficile A/B MAYITO MEYERS DO Feb 23, 2017 11:59
[2017-02-23] MEDS ORDERED: METO10TA2 PO (13:26)
[2017-02-23] MEDS ORDERED: FLAG500T PO (13:26)
[2017-02-23] MEDS ORDERED: PANT40TA2 PO (13:26)
[2017-02-23] MEDS ORDERED: CIPR-249 PO (13:26)
[2017-02-23] MEDS: METOCLOPRAMIDE 10 MG TAB PO PRN ×2 (13:42→21:14)
[2017-02-23] MEDS: metroNIDAZOLE (FLAGYL) 500 MG TAB PO SCH ×2 (13:42→21:14)
[2017-02-23 14:00] VITALS: BP 113/71
[2017-02-23] MEDS: PANTOPRAZOLE 40MG TAB (PROTONIX) PO SCH (21:14)
[2017-02-23 22:00] VITALS: BP 107/57
[2017-02-24 06:00] VITALS: BP 117/62
[2017-02-24] MEDS: metroNIDAZOLE (FLAGYL) 500 MG TAB PO SCH (06:02)
[2017-02-24] MEDS: CIPROFLOXACIN 500 MG TAB PO SCH (06:02)
[2017-02-24] MEDS: METOCLOPRAMIDE 10 MG TAB PO PRN ×2 (06:03→11:03)
[2017-02-24 07:30] LABS: MEAN CORPUSCULAR HEMOGLOBIN 28.1 pg (27.0-33.0); MEAN CORPUSCULAR HGB CONC 32.8 g/dl (32.0-36.5); MEAN CORPUSCULAR VOLUME 85.7 fl (80.0-96.0); RED CELL DISTRIBUTION WIDTH 14.5 % (11.5-14.5)
[2017-02-24 07:59] LABS: ANION GAP 8 MEQ/L (8-16); BLOOD UREA NITROGEN 6 MG/DL (7-18); CALCIUM LEVEL 8.5 MG/DL (8.5-10.1); CARBON DIOXIDE LEVEL 29 MEQ/L (21-32); CHLORIDE LEVEL 104 MEQ/L (98-107); CREATININE FOR GFR 0.62 MG/DL (0.55-1.02); GLOMERULAR FILTRATION RATE > 60.0 (>58); GLUCOSE, FASTING 112 MG/DL (70-105); POTASSIUM SERUM 4.1 MEQ/L (3.5-5.1); SODIUM LEVEL 141 MEQ/L (136-145)
[2017-02-24] MEDS: MESALAMINE 250 MG CR CAP PO SCH (08:14)
[2017-02-24] MEDS: PANTOPRAZOLE 40MG TAB (PROTONIX) PO SCH (08:14)
[2017-02-24] MEDS: ENOXAPARIN 40 MG/0.4 ML SYRINGE (J1650) SC SCH (08:14)
--- NOTE | 2017-02-24 10:05 | IPNPDOC ---
Date Seen The patient was seen on 02/24/17. Progress Note SUBJECTIVE: Patient is a 46-year-old female admitted for abdominal pain. Surgery was consulted on 02/15/2017, because CT revealed small bowel wall thickening with surrounding inflammation and moderate ascites involving the majority of the jejunum and ileum. She has since had a second CT on 02/16/17. The second CT showed moderate scattered free intraperitoneal air. With moderate abdominal and pelvic ascites. It also showed persistent thickened small bowel loops. This morning, pt complains about a heavy stomach sensation around the the lower abdomen. He was afebrile over the weekend. She is ambulatory. She had minimal drainage over night. This morning there is about 5 ml of fluid drained. OBJECTIVE PHYSICAL EXAMINATION: VITAL SIGNS: Please see below. GENERAL: Alert, resting comfortably on bed with knees up CARDIOVASCULAR: S1 and S2 are present, no murmurs, no rubs, no gallops RESPIRATORY: Lungs are clear to auscultate anteriorly and bilaterally. ABDOMINAL: Abdominal drainage tube was removed. There was no edema, there is no purulent drainage. Dominant incision was covered with gauze and tape EXTREMITIES: No deformities, no swelling, no bruising LABORATORY DATA: Please see below. MICROBIOLOGY: Please see below. IMAGING: Abdominal CT on 02/13/2017: Diffuse small bowel wall thickening with surrounding inflammation and moderate amount of ascites the majority of the jejunum and ileum. No focal site of obstruction is seen. Differential diagnosis includes colitis versus inflammatory bowel disease such as Crohn's disease. Abdominal CT on 02/16/2017:Moderate scattered free intraperitoneal air. Moderate abdominal and pelvic ascites. Persistent thickened small bowel loops Abdominal CT on 02/18/17: Impression: 1. Ascites, mesenteric stranding, and small amount of free air are relatively similar to prior examination and suggest element of bowel perforation. Discrete abscess cannot be excluded based on current examination. Partial bowel obstruction cannot be excluded although complete obstruction is less likely given the presumed passage of colonic contrast in comparison to prior examination. Associated enterocolitis cannot be excluded. 2. Mild right hydroureteronephrosis. 3. Mild bibasilar atelectasis (right greater than left ASSESSMENT AND PLAN: 46-year-old female admitted for severe abdominal pain. Patient was treated by both surgery and medical team. Patient's drainage tube was removed this morning, and covered up with 4 x 4 gauze and tape. There was no growth or bacteria noticed in her abdominal fluid. Her white count today was 12.2. Patient does not have any signs of infection. Patient says that her pain has severely decreased. However, she does feel slight heaviness on her abdomen. Patient can be discharged today with follow-up with Dr. Gerber one week from now. Follow up with her PCP 2 weeks. Thank you for involving surgery in the patient's care VS, I&O, 24H, Fishbone Vital Signs/I&O Vital Signs Date Time Temp Pulse Resp B/P (MAP) Pulse Ox O2 Delivery O2 Flow Rate FiO2 02/24/17 06:00 98.7 85 16 117/62 (80) 97 Room Air I&O- Last 24 Hours up to 6 AM 02/25/17 06:00 Intake Total 0 ml Output Total 0 ml Balance 0 ml Laboratory Data 24H LABS Laboratory Tests 2 02/24/17 07:14: Anion Gap 8, Glomerular Filtration Rate > 60.0, Blood Urea Nitrogen 6L, Creatinine 0.62, Sodium Level 141, Potassium Level 4.1, Chloride Level 104, Carbon Dioxide Level 29, Calcium Level 8.5 CBC/BMP Laboratory Tests 02/24/17 07:14 Red Blood Count 3.56 L, Mean Corpuscular Volume 85.7, Mean Corpuscular Hemoglobin 28.1, Mean Corpuscular Hemoglobin Concent 32.8, Red Cell Distribution Width 14.5, Calcium Level 8.5 Microbiology Microbiology 02/16/17 Blood Culture - Final, Complete NO GROWTH AFTER 5 DAYS 02/16/17 Blood Culture - Final, Complete NO GROWTH AFTER 5 DAYS 02/14/17 Blood Culture - Final, Complete NO GROWTH AFTER 5 DAYS 02/19/17 Gram Stain - Final, Complete 02/19/17 Body Fluid Culture - Final, Complete 02/19/17 Anaerobic Culture - Final, Complete 02/17/17 Gastrointestinal Tract Panel (PCR) - Final, Complete Clostridium Difficile A/B GME ATTESTATION GME ATTESTATION My preceptor for this patient encounter was physically present in the building during the encounter and was fully available. As needed, all aspects of the patient interview, examination, medical decision making process, and medical care plan development were reviewed and approved by the preceptor. Preceptor is aware and concurs with the plan as stated in the body of this note and will attest to such by his/her cosignature. SCAR DEVI DO Feb 24, 2017 10:05
[2017-02-24 15:09] LABS: O+P EXAM Final report (.)
--- NOTE | 2017-02-24 21:15 | DS.PDOC ---
Discharge Summary General Date of Admission Feb 14, 2017 at 01:36 Date of Discharge Feb 24, 2017 Attending Physician: Channing Llamas MD Specialist/Consultants Involve: Duran Valdez Jr Specialist/Consultants Involve Patient was seen by both Dr. Valdez and Dr. Cummings during hospitalization. Discharge Summary PROCEDURES PERFORMED DURING STAY: RIGHT ULTRASOUND GUIDED PIGTAIL CATHETER PLACEMENT: The procedure was performed by JAVID Fisher, under the direct supervision of Dr. Bond. The procedure along with its risks, benefits and complications were discussed with the patient prior to the examination. Informed consent was obtained both verbally and written. The patient was identified in the ultrasound suite and placed in a supine position. The right flank was interrogated with ultrasound. An appropriate site was chosen for needle entry and this area was marked, prepped and draped in the usual sterile fashion. A procedural time out was performed to ensure that the correct patient, site and procedure were being performed. Local infiltrative anesthesia was achieved using 1% Xylocaine. A small skin anika was made. A 10-K[place]akh Skater catheter was advanced into the fluid pocket. Ultrasound guidance was used and the imaging is available on PACS to review. The pigtail portion of the catheter was deployed. The catheter was sutured to the skin. A soft dressing was applied to the catheter entry site and a drainage bag was placed at the end of the catheter. 10 mL of gray fluid were collected and sent to the lab. Results pending. The patient tolerated the procedure well and had no immediate complications. ADMITTING DIAGNOSES: 1. Abdominal Pain secondary to enterocolitis DISCHARGE DIAGNOSES: 1. Abdomen pain with bowel inflammation and edema 2. Bowel perforation with ascites 3. Hypokalemia COMPLICATIONS/CHIEF COMPLAINT: Abdominal Pain. HISTORY OF PRESENT ILLNESS: 46-year-old white female presents to the emergency room with diffuse abdominal pain. The pain began suddenly while she was on a walking trail earlier today. She has been nauseous, but no vomiting. She denies any diarrhea symptoms. She has an interesting recent past medical history for an unknown illness. She has been evaluated for possible dengue fever. She has been seeing Dr. Cummings. Her serologies were positive for IgG, but absent for IgM. This presentation was associated with a headache which was present most recently last week, but has now resolved itself. She also has had recent eosinophilia, but ironically eosinophils are not elevated this evening. She has had elevated liver function tests (LFTs), but they have returned to normal. She has been evaluated also with stool for ova and parasites (O and P) which has been negative. She has a mildly elevated white count in the emergency room this evening. White count is 13,000 with 88% neutrophils and negligible eosinophils. Eosinophils within the last month have been as high as 33% at one time at the end of December. Sedimentation rate has been moderately elevated in the mid 30s. CRP is mildly elevated. Her CT shows findings suggestive of enterocolitis with thickening involving the jejunum and ileum and ascites and associated moderate amount of pelvic ascites. Regarding her pain, she has had morphine and Dilaudid in the emergency room (ER) . She seems to be comfortable at present, but still rates her pain fairly high on a 1-10 scale. Pain seems to be worse if supine. It also seems to be worse with anything which increases diaphragmatic pressure such as coughing, etc. She denies any fever. There is no associated rash. There are no joint complaints. HOSPITAL COURSE: Patient was admitted on 02/14/17 for diffuse abdomen pain. Patient has been seeing Dr. Cummings prior to admission for a possible infection of unknown origin after visiting [place] in November. CT of abdomen and pelvis on showed small bowel inflammation and edema, as well as pelvic ascites. CT of abdomen on 02/16 showed free air in abdomen and ascites, possibly due to a microperforation. 2. Bowel perforation with ascites: Patient had a ultrasound guided abcess drainage on the right. Abscess fluids were negative for gram stains, fluid cultures and anaerobic cultures. Clinically doing well. 3. Hypokalemia: we monitor and lamented appropriately throughout admission 4. Fever:patient had low grade fever in the beginning of the course of her stay and improved when after the patient abscess drainage. 5.. 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 Patient was on Laxatives while inpatient we held it and the patient diarrhea episodes improved. we did not treat for C. difficile, patient was likely colonized in hospital. DISCHARGE MEDICATIONS: Please see below. ALLERGIES: Please see below. PHYSICAL EXAMINATION ON DISCHARGE: VITAL SIGNS: Please see below. GENERAL: Patient appears in minimal distress compared to the rest of her hospital stay. She is AO and in NAD. CARDIOVASCULAR EXAMINATION: S1S2 present without mrg. RESPIRATORY EXAMINATION: CTAB without r/r/w. ABDOMINAL EXAMINATION: BSx4 with very little generalized tenderness. Drain site without erythema, swelling, drainage. EXTREMITIES: Negative edema. LABORATORY DATA: Please see below. IMAGING: Abdomen Pelvic CT 02/13/17 Impression: 1. Diffuse small bowel wall thickening with surrounding inflammation and moderate amount of ascites involving the majority of the jejunum and ileum. No focal site of obstruction is seen. Differential diagnosis includes enterocolitis versus and inflammatory bowel disease such as Crohn's disease. Follow-up is suggested as clinically indicated. 2. Moderate amount of pelvic ascites. 3. Simple right ovarian cyst. 4. Stable moderate degenerative disc disease at L5/S1. Chest XRAY 02/13/17 Impression: There are no acute cardiopulmonary findings. Liver US 02/14/17 Impression: Post cholecystectomy. Questionable finding of prominent echogenicity of the portal triads as discussed above. Otherwise negative. Abdomen CT 02/16/17 IMPRESSION: Moderate scattered free intraperitoneal air. Moderate abdominal and pelvic ascites. Persistent thickened small bowel loops. Findings were conveyed to Dr. Bloom 02/16/2017 at approximately 11:45 a.m. Vascular US 02/16/17 IMPRESSION: No evidence of DVT. Abdomen Pelvis CT 02/19/17 Impression: 1. Ascites, mesenteric stranding, and small amount of free air are relatively similar to prior examination and suggest element of bowel perforation. Discrete abscess cannot be excluded based on current examination. Partial bowel obstruction cannot be excluded although complete obstruction is less likely given the presumed passage of colonic contrast in comparison to prior examination. Associated enterocolitis cannot be excluded. 2. Mild right hydroureteronephrosis. 3. Mild bibasilar atelectasis (right greater than left). ACTIVITY: As tolerated. DIET: soft foods. DISCHARGE PLAN: DISPOSITION: 01 Home, Self-Care. DISCHARGE INSTRUCTIONS: 1. one week with dr. valdez, 2. 1-2 weeks with pcp 3. seek medical attention should symptoms worsen ITEMS TO FOLLOWUP ON ON OUTPATIENT: 1. one week with dr. valdez, 2. 1-2 weeks with pcp 3. seek medical attention should symptoms worsen DISCHARGE CONDITION: Stable. TIME SPENT ON DISCHARGE: Greater than 35 minutes. Vital Signs/I&Os Vital Signs Date Time Temp Pulse Resp B/P (MAP) Pulse Ox O2 Delivery O2 Flow Rate FiO2 02/24/17 09:00 Room Air 02/24/17 06:00 98.7 85 16 117/62 (80) 97 I&O- Last 24 Hours up to 6 AM 02/25/17 06:00 Intake Total 200 ml Output Total 900 ml Balance -700 ml Laboratory Data Labs 24H Laboratory Tests 2 02/24/17 07:14: Anion Gap 8, Glomerular Filtration Rate > 60.0, Blood Urea Nitrogen 6L, Creatinine 0.62, Sodium Level 141, Potassium Level 4.1, Chloride Level 104, Carbon Dioxide Level 29, Calcium Level 8.5 CBC/BMP Laboratory Tests 02/24/17 07:14 Red Blood Count 3.56 L, Mean Corpuscular Volume 85.7, Mean Corpuscular Hemoglobin 28.1, Mean Corpuscular Hemoglobin Concent 32.8, Red Cell Distribution Width 14.5, Calcium Level 8.5 Microbiology Microbiology 02/16/17 Blood Culture - Final, Complete NO GROWTH AFTER 5 DAYS 02/16/17 Blood Culture - Final, Complete NO GROWTH AFTER 5 DAYS 02/14/17 Blood Culture - Final, Complete NO GROWTH AFTER 5 DAYS 02/19/17 Gram Stain - Final, Complete 02/19/17 Body Fluid Culture - Final, Complete 02/19/17 Anaerobic Culture - Final, Complete 02/17/17 Gastrointestinal Tract Panel (PCR) - Final, Complete Clostridium Difficile A/B Discharge Medications Scheduled (Flonase Allergy Relief) 50 Mcg/Act Spr, 100 MCG NA DAILY, (Reported) Biotin (Vitamin H) (Biotin) 2,500 Mcg Cap, 2,500 MCG PO DAILY, (Reported) Cetirizine HCl (Zyrtec Allergy) 10 Mg Tab, 10 MG PO DAILY, (Reported) TAKES AT NOON Cholecalciferol (Vitamin D3 Maximum Streng) 5,000 Unit Cap, 5,000 UNIT PO DAILY, (Reported) Ciprofloxacin HCl (Cipro) 500 Mg Tab, 500 MG PO BID@ Cyanocobalamin (B-12) 500 Mcg Tab, 500 MCG PO DAILY, (Reported) Hydroquinone (Hydroquinone) 4 % Cre, 1 DOSE EXT BID, (Reported) USES ON FACE Metronidazole (Flagyl) 500 Mg Tab, 500 MG PO Q8H Pantoprazole Sodium (Pantoprazole Sodium) 40 Mg Tab, 40 MG PO BID Sodium Fluoride (Prevident 5000 Plus) 1.1 % Cre, 1 DOSE PO DAILY, (Reported) USES ON TEETH Tretinoin (Tretinoin) 0.05 % Cre, 1 DOSE EXT DAILY, (Reported) USES ON FACE Scheduled PRN Fexofenadine Hydrochloride (Yolanda Allergy) 180 Mg Tab, 180 MG PO QHS PRN for ALLERGIES, (Reported) Ibuprofen (Ibuprofen) 800 Mg Tab, 800 MG PO TID PRN for PAIN, (Reported) Metoclopramide HCl (Metoclopramide HCl) 10 Mg Tab, 10 MG PO Q6HP PRN for NAUSEA OR VOMITING Ondansetron HCl (Zofran) 4 Mg Tab, 4 MG PO Q12H PRN for NAUSEA, (Reported) Allergies Coded Allergies: Latex (Verified Allergy, Unknown, rash, itching , 10/22/16) GME ATTESTATION GME ATTESTATION My preceptor for this patient encounter was physically present in the building during the encounter and was fully available. As needed, all aspects of the patient interview, examination, medical decision making process, and medical care plan development were reviewed and approved by the preceptor. Preceptor is aware and concurs with the plan as stated in the body of this note and will attest to such by his/her cosignature. ALIE BULLARD DO Feb 24, 2017 16:02
== END 2017-02-24 12:23 | disposition home or self-care (01) | DRG 391 ==
LOC: M ED 16:36 → M ED INP 02-14 01:36 → M MSPAV 02-14 03:10
PROVIDERS: ATTEND Family Medicine
PROC: 0W9G30Z Drainage of Peritoneal Cavity with Drainage Device, Percutaneous Approach (ICD-10-PCS; principal; 2017-02-19)
DX: K52.9 Noninfective gastroenteritis and colitis, unspecified (principal); K63.1 Perforation of intestine (nontraumatic); R18.8 Other ascites; N13.30 Unspecified hydronephrosis; E87.6 Hypokalemia; N83.291 Other ovarian cyst, right side; M51.36 Other intervertebral disc degeneration, lumbar region; Z79.899 Other long term (current) drug therapy; Z91.040 Latex allergy status; K21.9 Gastro-esophageal reflux disease without esophagitis; D50.9 Iron deficiency anemia, unspecified; D72.1 Eosinophilia; B96.89 Other specified bacterial agents as the cause of diseases classified elsewhere; K59.00 Constipation, unspecified; R11.2 Nausea with vomiting, unspecified

== ENCOUNTER → 2017-03-05 | Outpatient (CLI) | payer OTHER ==
[~2017-03-05] MED LIST changes: +B-12500T2 PO; +CIPR-249 PO; +FLAG500T PO; +HYDR4CRE3 EXT; +IBUP1TAB7 PO; +METO10TA2 PO; +PANT40TA2 PO; +TRET0.0540 EXT; +[UNRECOGNIZED DRUG - CODE] PO
[2017-03-05 19:02] LABS: MEAN CORPUSCULAR HEMOGLOBIN 27.7 pg (27.0-33.0); MEAN CORPUSCULAR HGB CONC 31.8 g/dl (32.0-36.5); MEAN CORPUSCULAR VOLUME 86.9 fl (80.0-96.0); RED CELL DISTRIBUTION WIDTH 14.4 % (11.5-14.5); WHITE BLOOD COUNT 8.4 10^3/uL (4.0-10.0)
[2017-03-05 20:15] LABS: EOSINOPHILS 2 % (0-5)
== END ==
LOC: M LAB 16:49
PROVIDERS: ATTEND Surgery
DX: D64.9 Anemia, unspecified (principal)

== ENCOUNTER → 2017-04-07 | Outpatient (CLI) | payer OTHER ==
[2017-04-07 11:09] LABS: BASO % 0.8 % (0.0-1.0); EOS # 0.2 10^3/uL (0.0-0.50); IMMATURE GRANULOCYTE % 0.2 % (0-0); LYMPH # 2.1 10^3/uL (1.5-4.5); LYMPH % 41.6 % (24.0-44.0); MEAN CORPUSCULAR HEMOGLOBIN 27.2 pg (27.0-33.0); MEAN CORPUSCULAR HGB CONC 31.8 g/dl (32.0-36.5); MEAN CORPUSCULAR VOLUME 85.5 fl (80.0-96.0); MONO # 0.5 10^3/uL (0.0-0.8); MONO % 10.1 % (0.0-5.0); NEUTROPHILS # 2.2 10^3/uL (1.8-7.7); NEUTROPHILS % 44.3 % (36.0-66.0); PLATELET COUNT, AUTOMATED 346 10^3/uL (150-450); RED CELL DISTRIBUTION WIDTH 14.4 % (11.5-14.5); WHITE BLOOD COUNT 4.9 10^3/uL (4.0-10.0)
== END ==
LOC: M LAB 10:36
PROVIDERS: ATTEND Surgery
DX: D64.9 Anemia, unspecified (principal)

== ENCOUNTER → 2017-07-07 | Outpatient (REF) | payer OTHER | LOC: M LAB REF 15:11 | DX: J11.1 Influenza due to unidentified influenza virus with other respiratory manifestations (principal) | CPT/HCPCS: 87070 ==